=== PATIENT | male | born 1945 | race Caucasian/White ===

== ENCOUNTER 2019-12-07 09:51 | Outpatient (RCR) | payer MEDICARE, OTHER, SELFPAY ==
[2019-09-09 09:51] LABS: INR 2.5; Prothrombin Time 26.1 Seconds (11.1-14.7)
[2019-09-28 12:00] LABS: INR 2.1; Prothrombin Time 22.8 Seconds (11.1-14.7)
[2019-10-19 08:27] LABS: INR 1.4; Prothrombin Time 16.8 Seconds (11.1-14.7)
[2019-11-10 10:01] LABS: Prothrombin Time 22.5 Seconds (11.1-14.7)
[2019-12-07 10:45] LABS: INR 1.7; Prothrombin Time 19.5 Seconds (11.1-14.7)
== END 2019-12-08 23:59 | disposition home or self-care (01) ==
LOC: ANHLAB 09:51
PROVIDERS: PCP Family Medicine; Visit Provider Internal Medicine Cardiovascular Disease
DX: I48.91 Unspecified atrial fibrillation (principal)
CPT/HCPCS: 36415; 85610

== ENCOUNTER 2020-02-22 09:20 | Outpatient (RCR) | payer MEDICARE, OTHER, SELFPAY ==
[2019-12-20 09:35] LABS: INR 2.1; Prothrombin Time 23.1 Seconds (11.1-14.7)
[2020-01-14 09:44] LABS: INR 2.3; Prothrombin Time 24.6 Seconds (11.1-14.7)
[2020-02-22 10:30] LABS: Prothrombin Time 22.5 Seconds (11.1-14.7)
== END 2020-03-19 23:59 | disposition home or self-care (01) ==
LOC: ANHLAB 09:20
PROVIDERS: PCP Family Medicine; Visit Provider Internal Medicine Cardiovascular Disease
DX: I48.91 Unspecified atrial fibrillation (principal)
CPT/HCPCS: 36415; 85610

== ENCOUNTER 2020-06-08 08:53 | Outpatient (RCR) | payer MEDICARE, OTHER, SELFPAY ==
[2020-03-28 13:43] LABS: INR 2.3; Prothrombin Time 25.1 Seconds (11.1-14.7)
[2020-05-08 08:11] LABS: INR 1.4; Prothrombin Time 17.1 Seconds (11.1-14.7)
[2020-05-17 09:00] LABS: INR 2.8; Prothrombin Time 28.9 Seconds (11.1-14.7)
[2020-06-08 09:31] LABS: INR 2.2; Prothrombin Time 24.3 Seconds (11.1-14.7)
== END 2020-06-26 23:59 | disposition home or self-care (01) ==
LOC: ANHLAB 08:53
PROVIDERS: PCP Family Medicine; Visit Provider Internal Medicine Cardiovascular Disease
DX: I48.91 Unspecified atrial fibrillation (principal)
CPT/HCPCS: 36415; 85610

== ENCOUNTER 2020-08-08 09:14 | Outpatient (CLI) | payer MEDICARE, OTHER, SELFPAY ==
[2020-08-08 09:44] LABS: Basophils Percent Auto 0.9 % (0.2-1.2); Eosinophils Absolute Auto 0.1 K/mm3 (0-0.3); Hematocrit 40.5 % (42.0-52.0); Hemoglobin 13.6 g/dL (14.0-18.0); Immature Granulocyte Absolute 0.01 K/mm3 (0.00-0.031); Immature Granulocyte Percent A 0.2 % (0-0.5); Lymphocytes Absolute Auto 1.06 K/mm3 (0.9-3.2); Lymphocytes Percent Auto 24.7 % (18.3-44.2); Mean Corpuscular HGB Conc 33.6 g/dl (32-36); Mean Corpuscular Hemoglobin 33.6 pg (26-34); Mean Platelet Volume 9.2 fl (7.4-10.4); Monocytes Absolute Auto 0.4 K/mm3 (0.1-0.6); Monocytes Percent Auto 8.6 % (2.6-8.5); Neutrophils Absolute Auto 2.7 K/mm3 (1.3-6.7); Neutrophils Percent Auto 62.6 % (45.5-73.1); Platelet Count Result 157 k/mm3 (150-375); Red Blood Count 4.05 M/mm3 (4.6-6.20); White Blood Count 4.3 K/mm3 (4.5-10.0)
[2020-08-08 09:56] LABS: Alanine Aminotransferase 23 U/L (4-50); Alkaline Phosphatase 67 U/L (38-126); Anion Gap 6 mmol/L (8-16); Aspartate Amino Transferase 35 U/L (17-59); Bilirubin,Total 1.5 mg/dL (0.2-1.3); Blood Urea Nitrogen 28 mg/dL (9-20); Calcium 9.4 mg/dL (8.4-10.2); Carbon Dioxide 33 mmol/L (22-30); Chloride 104 mmol/L (98-107); Cholesterol 149 mg/dL (0-200); Estimated Glomerular Filt Rate > 60; Glucose 104 mg/dL (75-110); HDL Direct 51 mg/dL; Potassium 4.6 mmol/L (3.4-5.0); Sodium 143 mmol/L (137-145); Triglycerides 95 mg/dL (<150); Uric Acid 4.2 mg/dL (3.5-8.5)
[2020-08-08 09:59] LABS: Hemoglobin A1C 5.8 % (<5.7)
[2020-08-08 10:07] LABS: LDL Cholesterol Direct 73 mg/dL
[2020-08-08 10:24] LABS: Erythrocyte Sedimentation Rate 22 mm/hr (0-20)
[2020-08-11 22:13] LABS: PSA, Free 0.25 ng/mL; PSA, Total 0.9 ng/mL (<=4.0)
== END 2020-08-08 09:15 | disposition home or self-care (01) ==
PROVIDERS: PCP Family Medicine; Visit Provider Family Medicine
DX: I45.9 Conduction disorder, unspecified (principal); Z98.890 Other specified postprocedural states; M47.812 Spondylosis without myelopathy or radiculopathy, cervical region; Z13.1 Encounter for screening for diabetes mellitus; Z13.220 Encounter for screening for lipoid disorders; Z12.5 Encounter for screening for malignant neoplasm of prostate; R00.2 Palpitations; E79.0 Hyperuricemia without signs of inflammatory arthritis and tophaceous disease
CPT/HCPCS: 36415; 80053; 80061; 83036; 84153; 84154; 84443; 84550; 85025; 85610; 85652; G0103

== ENCOUNTER 2020-09-13 09:21 | Outpatient (RCR) | payer MEDICARE, OTHER, SELFPAY ==
[2020-07-14 09:19] LABS: INR 2.3; Prothrombin Time 25.1 Seconds (11.1-14.7)
[2020-08-08 09:59] LABS: INR 2.1; Prothrombin Time 23.5 Seconds (11.1-14.7)
[2020-09-13 10:51] LABS: INR 2.2; Prothrombin Time 24.9 Seconds (11.1-14.7)
== END 2020-10-12 23:59 | disposition home or self-care (01) ==
LOC: ANHLAB 09:21
PROVIDERS: PCP Family Medicine; Visit Provider Internal Medicine Cardiovascular Disease
DX: I48.91 Unspecified atrial fibrillation (principal)
CPT/HCPCS: 36415; 85610

== ENCOUNTER 2021-01-12 09:39 | Outpatient (RCR) | payer MEDICARE, OTHER, SELFPAY ==
[2020-10-16 10:00] LABS: INR 2.1; Prothrombin Time 24.1 Seconds (11.1-14.7)
[2020-11-14 10:09] LABS: INR 2.2; Prothrombin Time 24.9 Seconds (11.1-14.7)
[2020-12-11 10:02] LABS: INR 2.6
[2021-01-12 10:23] LABS: INR 2.3; Prothrombin Time 25.8 Seconds (11.1-14.7)
== END 2021-01-14 23:59 | disposition home or self-care (01) ==
LOC: ANHLAB 09:39
PROVIDERS: PCP Family Medicine; Visit Provider Internal Medicine Cardiovascular Disease
DX: I48.91 Unspecified atrial fibrillation (principal)
CPT/HCPCS: 36415; 85610

== ENCOUNTER 2021-04-03 09:10 | Outpatient (RCR) | payer MEDICARE, OTHER, SELFPAY ==
[2021-02-12 10:11] LABS: INR 2.2; Prothrombin Time 25.1 Seconds (11.1-14.7)
[2021-03-15 10:03] LABS: INR 1.7; Prothrombin Time 20.9 Seconds (11.1-14.7)
[2021-04-03 10:03] LABS: Prothrombin Time 23.5 Seconds (11.1-14.7)
== END 2021-05-13 23:59 | disposition home or self-care (01) ==
LOC: ANHLAB 09:10
PROVIDERS: PCP Family Medicine; Visit Provider Internal Medicine Cardiovascular Disease
DX: I48.91 Unspecified atrial fibrillation (principal)
CPT/HCPCS: 36415; 85610

== ENCOUNTER 2021-05-18 16:32 | Outpatient (CLI) | payer MEDICARE, OTHER, SELFPAY ==
[2021-05-18 17:27] LABS: Add Urine Microscopic? YES; Appearance Urine Cloudy (Clear); Bilirubin Urine Negative (Negative); Blood Urine 3+ (Negative); Color Urine Yellow (Yellow); Glucose Urine UA Negative (Negative); Ketones Urine Negative (Negative); Leukocyte Esterase Ur Negative LEU/UL (Negative); Mucus Urine Rare /lpf; Nitrate Urine Negative (Negative); Protein Urine 2+ mg/dL (Negative); RBC Urine >75 /hpf (0-2); Specific Grav Ur 1.024 (1.001-1.035); Urobilinogen Urine Negative mg/dL (<2.0); WBC Urine 0-3 /hpf
== END 2021-05-18 16:33 | disposition home or self-care (01) ==
LOC: ANHLAB 16:36
PROVIDERS: PCP Family Medicine; Visit Provider Family Medicine
DX: R31.9 Hematuria, unspecified (principal)
CPT/HCPCS: 81001

== ENCOUNTER 2021-05-20 16:55 | Observation (INO) | payer MEDICARE, OTHER, SELFPAY ==
[2021-05-20] VITALS (23 sets, daily range): BP systolic 104–149; BP diastolic 75–95; PULSE 63–72; RESP 18–20; TEMP 36.1–36.8; O2SAT 95–99
--- NOTE | ~2021-05-20 | XR_ITS ---
EXAMINATION: XR retrograde pyelo w/stent LT EXAM DATE: 05/21/2021 15:35 INDICATION: Left-sided obstructive nephropathy, left flank pain. TECHNIQUE: Fluoroscopy used during XR retrograde pyelo w/stent LT performed by Dr. Epifanio Rowland MD, urologist. The radiologist Ace Hernandez M.D. dictating this report of the image(s) available wa s not present for the procedure. Total fluoroscopic time of 16. The DAP for this procedure was 261 radcm2. A total of 76 images sent to PACS from the exam. Cine run(s) available for review. FINDINGS: Left ureter was cannulated, injected. There is sizable filling defect in the renal pelvis, the stone seen on x-ray. Mild left hydronephrosis. Probably some venous intravasation. Correlate wit h procedure note. IMPRESSION: Left renal pelvis filling defect, nephrolithiasis. Mild left hydronephrosis. Reviewed, dictated and finalized at location A. IMPRESSION: Left renal pelvis filling defect, nephrolithiasis. Mild left hydron ephrosis.
--- NOTE | ~2021-05-20 | XR_ITS ---
EXAMINATION: XR abdomen/kub 1V INDICATION: Left ureteral stone TECHNIQUE: Supine views of the abdomen were obtained on 2 radiographs. COMPARISON: CT from yesterday FINDINGS: A 9 mm stone projects at the expected location of the left ureteropelvic junction at the le shayla of the left L3 transverse process. There is a 6 mm nonobstructing stone of the left kidney. The b owel gas pattern is normal. There is moderate lumbar spondylosis. The visualized lung bases are clear . Cardiomegaly is noted. There is moderate osteoarthritis of the hips. A phlebolith is present in the right pelvis. IMPRESSION: 1. 9 mm stone projecting at the expected location of the left ureteropelvic junction. Reviewed, dictated and finalized at location B. IMPRESSION: 1. 9 mm stone projecting at the expected location of the left ureteropelvic heidy ction.
--- NOTE | ~2021-05-20 | CT_ITS ---
EXAMINATION: CT abdomen pelvis wo con DATE: 05/20/2021 17:31 INDICATION: Left flank pain TECHNIQUE: Computed tomography (CT) of the abdomen and pelvis was performed without intravenous contr ast. Automated exposure control and iterative reconstruction technique were employed. The dose-length product was 227.56 mGy-cm. COMPARISON: 10/11/2019 FINDINGS: No significant interval change in mild atelectasis/scarring at the bilateral lung bases. Heart size i s normal. Median sternotomy and mitral annular repair. Cardiac pacemaker leads terminating at the rig ht atrium and right ventricle. No pericardial or pleural effusion. Liver, gallbladder, spleen, pancre as, bilateral adrenal glands and right kidney are normal. 8 x 4 x 6 mm obstructing stone at the left ureteropelvic junction with mild left hydronephrosis and asymmetric moderate left perinephric strandi ng. There is an additional 8 mm stone in a middle calyx of the left kidney. Bladder is normal. Prosta tomegaly. Small bilateral fat-containing inguinal hernias. Bowels including the appendix are normal. No free intraperitoneal gas or fluid. No pathologically enlarged abdominal or pelvic lymphadenopathy. Moderate lower lumbar spondylosis with 7 mm anterolisthesis L4 on L5. IMPRESSION: 1. Mild left hydronephrosis resulting from an 8 mm obstructing stone at the left ureterovesicular heidy ction. Reviewed, dictated and finalized at location A. IMPRESSION: 1. Mild left hydronephrosis resulting from an 8 mm obstructing stone at the lef t ureterovesicular junction.
--- NOTE | 2021-05-20 17:22 | ED.ABDPAIN ---
HPI - Abdominal Pain General Chief Complaint: Urogenital-Male Stated Complaint: left flank pain Time Seen by Provider: 05/20/21 17:12 History of Present Illness HPI narrative: Intermittent left flank pain and dark urine for about 3 weeks. Feels similar to when he passed a kidney stone in the past. 2 years ago he was told that he had 2 stones remaining in the left kidney. No nausea, vomiting, fever, dysuria, abdominal pain, CP, SOB. Related Data Home Medications Medication Instructions Recorded Confirmed multivitamin [Multiple Vitamins] 1 tablet PO DAILY 10/10/19 05/20/21 warfarin 4 mg PO DAILY 10/10/19 05/20/21 aspirin [Aspir-81] 81 mg PO DAILY 05/20/21 05/20/21 Allergies Allergy/AdvReac Type Severity Reaction Status Date / Time No Known Allergies Allergy Verified 05/20/21 16:59 Review of Systems Review of Systems: All systems reviewed & are unremarkable except as noted in HPI and below PMFSH Past Medical History Medical History Anticoagulated by anticoagulation treatment Arthritis (Unknown) Bronchitis COPD (chronic obstructive pulmonary disease) Degenerative arthritis of cervical spine (~1998) GERD (gastroesophageal reflux disease) History of nephrolithiasis HLD (hyperlipidemia) HTN (hypertension) Mitral valve prolapse Surgical History Surgical History History of cataract extraction (~12/2014) History of cataract extraction (~03/2015) History of detached retina repair (~02/2006) History of detached retina repair (~01/1996) History of total left knee replacement (~12/2007) History of total right knee replacement (~12/2009) Hx of mitral valve replacement (~08/13/17) S/P mitral valve repair Total knee replacement status Family History Family History Mother Cancer Social History Social History Social History: Smoking status: Never smoker Second hand tobacco smoke exposure: No Alcohol intake: current Alcohol use details: Occasionally Substance use: never Substance use type: does not use Gender identity (if verbalized by the patient): Male Exam Const: General: healthy appearing, no acute distress and alert Nutritional Appearance: well nourished Orientation/consciousness: patient oriented x3 HENMT: Head: normal to inspection Resp: Effort & Inspection: normal respiratory effort Auscultation: clear to auscultation bilaterally Cardio: Rate: regular rate Rhythm: regular rhythm GI: GI Palp: Yes Soft to palpation and No Tenderness to palpation present (GI) : General: Yes no CVA tenderness Skin: General skin exam: normal color Neuro: General: patient oriented x3, moves all extremities and no focal motor deficits Speech: normal speech Extrem: General: normal to inspection and no edema Course Vital Signs Vital signs: Vital Signs Temperature 36.8 C 05/20/21 16:57 Pulse Rate 72 05/20/21 16:57 Respiratory Rate 20 05/20/21 16:57 Blood Pressure 149/87 H 05/20/21 16:57 Pulse Oximetry 97 05/20/21 16:57 Temperature 36.8 C 05/20/21 16:57 Pulse Rate 71 05/20/21 17:14 Respiratory Rate 18 05/20/21 17:14 Blood Pressure 143/94 H 05/20/21 17:14 Pulse Oximetry 97 05/20/21 17:14 MDM - Abdominal Pain MDM Narrative Medical decision making narrative: He has an 8 mm proximal left stone. Mild decrease in renal function. Dr. Cline spoke with the pateint and is recommending that he be admitted to the hospitalist overnight and have a stent placed tomorrow. Differential Diagnosis Differential diagnosis: Likely calculus of kidney Medical Records Attestation: I reviewed the patient's medical records. Lab Data Attestation: I reviewed the patient's lab results. Result diagrams: 05/20/21 17:24
--- NOTE | 2021-05-20 17:26 | PC.NURSE ---
Pt to CT scan, off floor
[2021-05-20 17:30] LABS: Basophils Absolute Auto 0.1 K/mm3 (0.0-0.1); Basophils Percent Auto 0.5 % (0.2-1.2); Eosinophils Absolute Auto 0.1 K/mm3 (0-0.3); Eosinophils Percent Auto 1.2 % (0-4.4); Hematocrit 43.9 % (42.0-52.0); Hemoglobin 14.5 g/dL (14.0-18.0); Immature Granulocyte Absolute 0.03 K/mm3 (0.00-0.031); Immature Granulocyte Percent A 0.3 % (0-0.5); Lymphocytes Absolute Auto 1.12 K/mm3 (0.9-3.2); Lymphocytes Percent Auto 12.1 % (18.3-44.2); Mean Corpuscular Hemoglobin 33.1 pg (26-34); Mean Corpuscular Volume 100.2 fl (80-100); Monocytes Percent Auto 10.2 % (2.6-8.5); Neutrophils Percent Auto 75.7 % (45.5-73.1); Platelet Count Result 180 k/mm3 (150-375); Red Blood Count 4.38 M/mm3 (4.6-6.20); Red Cell Distribution Width 12.7 % (11.5-14.5); White Blood Count 9.3 K/mm3 (4.5-10.0)
[2021-05-20 17:40] LABS: Alanine Aminotransferase 21 U/L (4-50); Albumin Level 4.3 g/dL (3.5-5.1); Alkaline Phosphatase 87 U/L (38-126); Anion Gap 8 mmol/L (8-16); Aspartate Amino Transferase 37 U/L (17-59); Bilirubin,Total 1.5 mg/dL (0.2-1.3); Blood Urea Nitrogen 33 mg/dL (9-20); Calcium 9.9 mg/dL (8.4-10.2); Carbon Dioxide 29 mmol/L (22-30); Chloride 104 mmol/L (98-107); Estimated CRCL calculation 41 ml/min; Estimated Glomerular Filt Rate 46; Glucose 140 mg/dL (65-110); Potassium 4.3 mmol/L (3.4-5.0); Sodium 141 mmol/L (137-145)
[2021-05-20 17:47] LABS: Add Urine Microscopic? YES; Appearance Urine Cloudy (Clear); Bacteria Urine Trace /hpf; Bilirubin Urine Negative (Negative); Blood Urine 3+ (Negative); Color Urine Yellow (Yellow); Glucose Urine UA 2+ mg/dL (Negative); Ketones Urine Negative (Negative); Leukocyte Esterase Ur Trace LEU/UL (Negative); Mucus Urine Moderate /lpf; Nitrate Urine Negative (Negative); Protein Urine 1+ mg/dL (Negative); RBC Urine >75 /hpf (0-2); Urobilinogen Urine Negative mg/dL (<2.0)
[2021-05-20 17:49] LABS: Specific Grav Ur 1.031 (1.001-1.035)
--- NOTE | 2021-05-20 18:24 | WPDURCON ---
Assessment and Plan Additional Plan 1. Admit to Hospital Medicine given cardiac history and other comorbidities including COPD. 2. To OR tomorrow for left ureteral stent placement, possible left ureteroscopy and laser lithotripsy. 3. Rocephin 1g IV. 4. Strain all urine. Bernice Campos MD [facility] Consult Note HPI Date Seen: 05/20/21 Primary Care Provider: Zoraida Mancia MD Consult Narrative Narrative: Leroy Osorio is a 75 year old male who presents to the [facility] ER with 1 week of left flank pain. The patient reports pain is colicky and intermittent in nature. He denies nausea or vomiting. He reports he is on Coumadin for a valve replacement. He has a history of spontaneously passing multiple stones. He denies fevers, chills, UTI symptoms. He has had intermittent hematuria. SCr 1.50 mg/dL, baseline appears to be about 1.0 mg/dL. Review of Systems Constitutional: Constitutional: Reports as per HPI, Denies fatigue and Denies fever(s) Eyes: Eyes: Reports as per HPI ENT: Reports as per HPI Cardiovascular: Cardiovascular: Reports as per HPI Respiratory: Respiratory: Reports as per HPI Gastrointestinal: Gastrointestinal: Reports as per HPI Genitourinary: Genitourinary: Reports hematuria and Reports flank pain Musculoskeletal: Musculoskeletal: Reports no additional musculoskeletal complaints Integumentary/Breasts: Skin/Breast: Reports system reviewed and no additional complaints, except as docu Neurologic: Reports system reviewed and no additional complaints, except as documented Psychiatric: Psychiatric: Reports no additional psychiatric complaints Endocrine: Endocrine: Reports no additional endocrine complaints [facility] Past Medical History Medical History Anticoagulated by anticoagulation treatment Arthritis (Unknown) Bronchitis COPD (chronic obstructive pulmonary disease) Degenerative arthritis of cervical spine (~1998) GERD (gastroesophageal reflux disease) History of nephrolithiasis HLD (hyperlipidemia) HTN (hypertension) Mitral valve prolapse Surgical History Surgical History History of cataract extraction (~12/2014) History of cataract extraction (~03/2015) History of detached retina repair (~02/2006) History of detached retina repair (~01/1996) History of total left knee replacement (~12/2007) History of total right knee replacement (~12/2009) Hx of mitral valve replacement (~08/13/17) S/P mitral valve repair Total knee replacement status Family History Family History Mother Cancer Social History Social History Social History: Smoking status: Never smoker Second hand tobacco smoke exposure: No Alcohol intake: current Alcohol use details: Occasionally Substance use: never Substance use type: does not use Gender identity (if verbalized by the patient): Male Meds Home Medications and Allergies Home Medications Medication Instructions Recorded Confirmed Type multivitamin [Multiple Vitamins] 1 tablet PO DAILY 10/10/19 02/23/21 History warfarin 6 mg PO DAILY 10/10/19 02/23/21 History aspirin [Aspir-81] 81 mg PO DAILY 05/20/21 History Allergies Allergy/AdvReac Type Severity Reaction Status Date / Time No Known Allergies Allergy Verified 05/20/21 16:59 Vital Signs Vital Signs - 24 hr 05/20/21 16:57 05/20/21 17:14 Temperature 98.2 F Pulse Rate 72 71 Respiratory Rate 20 18 Blood Pressure 149/87 H 143/94 H Pulse Oximetry 97 97 Exam Const: General: cooperative, healthy appearing, comfortable and no acute distress HENMT: Head: normal to inspection Ears: hearing grossly normal bilaterally Eyes: General: appearance normal, both eyes and all related structures Neck: Neck: normal visual
[2021-05-20] MEDS: TAMSULOSIN HCL 0.4 MG CAPSULE PO (18:51)
--- NOTE | 2021-05-20 19:34 | PC.NURSE ---
SBAR faxed to floor. Pt admitted to Room 326-1.
--- NOTE | 2021-05-20 20:11 | PC.NURSE ---
Report to SUPRIYA Anthony. Pt admitted to room 36-1.
--- NOTE | 2021-05-20 20:30 | ADMGEN ---
This patient, Leroy Osorio, was admitted to [facility] Surg Room 326-01. Patient/family oriented to hospital policies and general routines including ID bracelet, bed and alarms, visiting hours, pain management, procedures, bathroom and other care routines, personal items, smoking policy, room service/diet, and visiting hours. Information on how to activate the Rapid Response Team has been discussed. Patient/Family are encouraged to report perceived risks to care and to ask questions if they do not understand what they are told or what they should do.
--- NOTE | 2021-05-20 20:31 | PM.IMHP ---
H&P: HPI History of Present Illness Date/Time: 05/20/21 20:31 Chief Complaint: FLANK PAIN Narrative: THIS IS A 75-YEAR-OLD MALE WITH PAST MEDICAL HISTORY SIGNIFICANT FOR UROLITHIASIS PATIENT PRESENTED TO THE EMERGENCY ROOM DUE TO LEFT FLANK PAIN FOR THE LAST 2 DAYS OR SO HE DENIES ANY FEVERS RIGORS OR CHILLS NO NAUSEA NO VOMITING NO DIARRHEA NO CONSTIPATION. HE ALSO NOTED DARK COLOR OF THE URINE FOR THE LAST 2 DAYS OR SO WELL HE HAD BEEN IN HIS USUAL STATE OF HEALTH PRIOR TO THESE. DENIES ANY SHORTNESS OF BREATH COUGH SPUTUM PRODUCTION CHEST PAIN LIGHTHEADEDNESS SYNCOPE OR NEAR SYNCOPE NO CLAUDICATION. PRELIMINARY WORKUP WAS SIGNIFICANT FOR CT OF ABDOMEN AND PELVIS WITH 8 MM STONE AT THE LEFT URETEROVESICULAR JUNCTION. ALSO HYDRONEPHROSIS IN THE SAME SIDE. Review of Systems Review of Systems: Narrative: PATIENT PRESENTED TO EMERGENCY ROOM DUE TO LEFT FLANK PAIN Constitutional: Constitutional: Denies chills, Denies fever(s), Denies malaise and Denies weakness Eyes: Eyes: Denies change in vision ENT: Denies nasal congestion, Denies nasal discharge and Denies nasal obstruction Cardiovascular: Cardiovascular: Denies irregular heart rhythm, Denies claudication, Denies leg edema, Denies lightheadedness, Denies radiating jaw, neck or arm pain, Denies palpitations, Denies dyspnea, Denies dyspnea on exertion and Denies orthopnea Respiratory: Respiratory: Denies cough and Denies wheezing Gastrointestinal: Gastrointestinal: Denies diarrhea, Denies nausea and Denies vomiting Genitourinary: Genitourinary: Reports hematuria and Reports flank pain ( LEFT) Musculoskeletal: Musculoskeletal: Reports no additional musculoskeletal complaints Integumentary/Breasts: Skin/Breast: Reports system reviewed and no additional complaints, except as docu Neurologic: Reports system reviewed and no additional complaints, except as documented Psychiatric: Psychiatric: Reports no additional psychiatric complaints Endocrine: Endocrine: Reports no additional endocrine complaints Hematologic/Lymphatic: Hematologic/Lymphatic: Reports no additional hematologic/lymphatic complaints Allergic/Immunologic: Allergic/Immunologic: Reports no additional allergic/immunologic complaints [facility] Past Medical History Medical History Anticoagulated by anticoagulation treatment Arthritis (Unknown) Bronchitis COPD (chronic obstructive pulmonary disease) Degenerative arthritis of cervical spine (~1998) GERD (gastroesophageal reflux disease) History of nephrolithiasis HLD (hyperlipidemia) HTN (hypertension) Mitral valve prolapse Surgical History Surgical History History of cataract extraction (~12/2014) History of cataract extraction (~03/2015) History of detached retina repair (~02/2006) History of detached retina repair (~01/1996) History of total left knee replacement (~12/2007) History of total right knee replacement (~12/2009) Hx of mitral valve replacement (~08/13/17) S/P mitral valve repair Total knee replacement status Family History Family History (Updated 05/20/21 @ 21:25 by Ruthann Mccallum RN) Mother Cancer lung cancer Father Lung cancer Social History Social History Social History: Smoking status: Current some day smoker Tobacco type: cigars Second hand tobacco smoke exposure: No Alcohol intake: unknown Alcohol use details: Occasionally Substance use: never Substance use type: does not use Gender identity (if verbalized by the patient): Male Spiritual care concerns: No Meds Home Medications and Allergies Home Medications Medication Instructions Recorded Confirmed Type multivitamin [Multiple Vitamins] 1 tablet PO DAILY 10/10/19 05/20/21 History warfarin 6 mg PO DAILY 10/10/19 05/20/21 History aspirin [Aspir-81] 81
[2021-05-20] MEDS: SODIUM CHLORIDE 0.9% IV 1,000 ML 100 ML IV CONT (21:37)
[2021-05-20] MEDS: MORPHINE SULFATE (*CRX) 4 MG/ML INJ IV PUSH (23:19)
[2021-05-21] VITALS (7 sets, daily range): BP systolic 83–125; BP diastolic 53–77; PULSE 60–68; RESP 10–18; TEMP 36.6–36.7; O2SAT 94–98
--- NOTE | 2021-05-21 07:14 | WPDHPUPDATE1 ---
History and Physical Update Update Date/Time: 05/21/21 07:14 History and Physical has been reviewed, including an updated exam of the patient. There are NO changes in the patient's condition. Risks, benefits, and alternatives have been discussed and questions answered. Patient agrees to proceed with procedure.
[2021-05-21] MEDS: SODIUM CHLORIDE 0.9% IV 1,000 ML 100 ML IV CONT (07:53)
--- NOTE | 2021-05-21 08:06 | WPDANESEPPF ---
Anes - Initial Pre Proc Eval Procedure: Operation Date: 05/21/21 15:30 Proposed Procedures p Left Ureteral Stent placement, possible left ureteroscopy - Epifanio Rowland MD s possible laser lithotripsy - Epifanio Rowland MD <Stevenson Alfaro DO - Last Filed: 05/29/21 08:44> Date/Time: 05/21/21 08:06 <Stevenson Alfaro DO - Last Filed: 05/29/21 08:44> Surgeon: Gillian Lazo PA-C <Stevenson Alfaro DO - Last Filed: 05/29/21 08:44> Pre Op Diagnosis: Obstructing ureteral stone, irvin <Stevenson Alfaro DO - Last Filed: 05/29/21 08:44> Patient Data Age: 75 Gender: M Height: 1.8 m Weight: 83 kg <Stevenson Alfaro DO - Last Filed: 05/29/21 08:44> Last Vital Signs Temp 36.1 C L 05/20/21 20:16 Pulse 63 05/20/21 20:16 Resp 18 05/20/21 20:16 BP 106/84 05/20/21 20:16 Pulse Ox 97 05/20/21 22:02 <Stevenson Alfaro DO - Last Filed: 05/29/21 08:44> Allergies Allergy/AdvReac Type Severity Reaction Status Date / Time No Known Allergies Allergy Verified 05/21/21 14:26 <Stevenson Alfaro DO - Last Filed: 05/29/21 08:44> Home Medications Medication Instructions Recorded Confirmed Type multivitamin [Multiple Vitamins] 1 tablet PO DAILY 10/10/19 05/20/21 History warfarin 6 mg PO DAILY 10/10/19 05/20/21 History aspirin 81 mg PO DAILY 05/20/21 05/20/21 History hydrocodone-acetaminophen 1 tablet PO Q4H PRN #30 tablet 05/21/21 Rx oxybutynin chloride 5 mg PO TID PRN #60 tablet 05/21/21 Rx phenazopyridine [Pyridium] 200 mg PO TID PRN #30 tablet 05/21/21 Rx <Stevenson Alfaro DO - Last Filed: 05/29/21 08:44> Laboratory Tests 05/20/21 05/20/21 05/20/21 17:24 17:24 17:24 WBC 9.3 K/mm3 K/mm3 (4.5-10.0) RBC 4.38 M/mm3 L M/mm3 (4.6-6.20) Hgb 14.5 g/dL g/dL (14.0-18.0) Hct 43.9 % % (42.0-52.0) MCV 100.2 fl H fl (80-100) MCH 33.1 pg pg (26-34) MCHC 33.0 g/dl g/dl (32-36) RDW 12.7 % % (11.5-14.5) Plt Count 180 k/mm3 k/mm3 (150-375) MPV 9.0 fl fl (7.4-10.4) Immature Gran % (Auto) 0.3 % % (0-0.5) Neut % (Auto) 75.7 % H % (45.5-73.1) Lymph % (Auto) 12.1 % L % (18.3-44.2) [place] % (Auto) 10.2 % H % (2.6-8.5) Eos % (Auto) 1.2 % % (0-4.4) Baso % (Auto) 0.5 % % (0.2-1.2) Lymph # (Auto) 1.12 K/mm3 K/mm3 (0.9-3.2) [place] # (Auto) 1.0 K/mm3 H K/mm3 (0.1-0.6) Eos # (Auto) 0.1 K/mm3 K/mm3 (0-0.3) Baso # (Auto) 0.1 K/mm3 K/mm3 (0.0-0.1) Abs Immat Gran (auto) 0.03 K/mm3 K/mm3 (0.00-0.031) Absolute Neuts (auto) 7.0 K/mm3 H K/mm3 (1.3-6.7) Absolute Nucleated RBC 0.0 K/mm3 K/mm3 (0.0-0.012) Nucleated RBC % 0.0 % % (0.0-0.2) Sodium 141 mmol/L mmol/L (137-145) Potassium 4.3 mmol/L mmol/L (3.4-5.0) Chloride 104 mmol/L mmol/L (98-107) Carbon Dioxide 29 mmol/L mmol/L (22-30) Anion Gap 8 mmol/L mmol/L (8-16) BUN 33 mg/dL H mg/dL (9-20) Creatinine 1.50 mg/dL H mg/dL (0.7-1.3) Estim Creat Clear Calc 41 ml/min ml/min Estimated GFR 46 L (59 - ) Glucose 140 mg/dL H mg/dL (65-110) Calcium 9.9 mg/dL mg/dL (8.4-10.2) Total Bilirubin 1.5 mg/dL H mg/dL (0.2-1.3) AST 37 U/L U/L (17-59) ALT 21 U/L U/L (4-50) Alkaline Phosphatase 87 U/L U/L (38-126) Total Protein 8.0 g/dL g/dL (6.3-8.2) Albumin 4.3 g/dL g/dL (3.5-5.1) Urine Color Yellow (Yellow) Urine Appearance Cloudy H (Clear) Urine pH 5.0 (5.0-9.0) Ur Specific [place] 1.031 (1.001-1.035) Urine Protein 1+ mg/dL H mg/dL (Negative) Urine Glucose (UA) 2+ mg
--- NOTE | 2021-05-21 10:18 | PC.NURSE ---
patient to xray 0800 and returned to floor at 0815
[2021-05-21 11:04] LABS: Anion Gap 5 mmol/L (8-16); Blood Urea Nitrogen 33 mg/dL (9-20); Calcium 8.8 mg/dL (8.4-10.2); Carbon Dioxide 29 mmol/L (22-30); Chloride 105 mmol/L (98-107); Estimated CRCL calculation 44 ml/min; Estimated Glomerular Filt Rate 50; Glucose 97 mg/dL (65-110); Potassium 4.2 mmol/L (3.4-5.0); Sodium 139 mmol/L (137-145)
[2021-05-21 12:10] LABS: Folic Acid 17.8 ng/mL (2.76->20)
--- NOTE | 2021-05-21 13:58 | PC.NURSE ---
to OR per stretcher. with patient to OR.
--- NOTE | 2021-05-21 14:56 | WPDUROPN2 ---
Progress Note: A&P Assessment and Plan (1) Obstruction of left ureteropelvic junction due to stone: Code(s): N20.1 - Calculus of ureter Status: Acute Assessment and Plan: will plan on left ureteral stent today. We discussed outpatient definitive stone management in the form of lithotripsy. The stone is visible on KUB. We will arrange once we confirmed he can be off Coumadin. If form was read the stent he may discharged home today. he should stay on his blood thinners for now. Subjective Subjective Date/Time Seen: 05/21/21 14:56 no complaints today. Will plan for left ureteral stent. Will do outpatient lithotripsy once we can confirm he can be off Coumadin Exam Const: General: cooperative, healthy appearing, alert and awake HENMT: Head: normal to inspection Eyes: General: appearance normal, both eyes and all related structures Neck: Neck: normal visual inspection Resp: Effort & Inspection: normal respiratory effort and able to speak in complete sentences Back/Spine/Pelvis: Back: CVA tenderness Skin: General skin exam: normal color Neuro: General: patient oriented x3 Objective Data Vital Signs Vital Signs: Vital Signs - 24 hr 05/20/21 16:57 05/20/21 17:14 05/20/21 17:16 Temperature 98.2 F Pulse Rate 72 71 71 Respiratory Rate 20 18 Blood Pressure 149/87 H 143/94 H 143/94 H Pulse Oximetry 97 97 97 05/20/21 17:33 05/20/21 17:45 05/20/21 18:00 Temperature Pulse Rate 68 69 66 Respiratory Rate Blood Pressure 134/86 126/88 123/75 Pulse Oximetry 97 97 05/20/21 18:15 05/20/21 18:30 05/20/21 18:42 Temperature Pulse Rate 66 65 Respiratory Rate Blood Pressure 132/95 H 129/80 Pulse Oximetry 98 97 97 05/20/21 18:45 05/20/21 18:46 05/20/21 18:47 Temperature Pulse Rate 63 Respiratory Rate Blood Pressure 106/84 106/84 Pulse Oximetry 97 98 99 05/20/21 19:00 05/20/21 19:01 05/20/21 19:15 Temperature Pulse Rate Respiratory Rate Blood Pressure 132/94 H Pulse Oximetry 99 95 98 05/20/21 19:16 05/20/21 19:17 05/20/21 19:30 Temperature Pulse Rate Respiratory Rate Blood Pressure 104/91 H 128/81 Pulse Oximetry 97 98 99 05/20/21 19:31 05/20/21 19:45 05/20/21 19:46 Temperature Pulse Rate Respiratory Rate Blood Pressure 124/76 Pulse Oximetry 98 97 97 05/20/21 20:16 05/20/21 22:02 05/21/21 07:15 Temperature 97.0 F L 98.1 F Pulse Rate 63 61 Respiratory Rate 18 18 Blood Pressure 106/84 110/69 Pulse Oximetry 97 97 96 05/21/21 14:28 Temperature 98.1 F Pulse Rate 68 Respiratory Rate 18 Blood Pressure 113/61 Pulse Oximetry 94 Intake/Output Intake/Output: Intake & Output 05/18/21 05/19/21 05/20/21 05/21/21 23:59 23:59 23:59 23:59 Intake Total 1000 Balance 1000 Meds/Results Medications: Active Medications Generic Name Dose Route Start Last Admin Trade Name Freq PRN Reason Stop Dose Admin Fentanyl Citrate 25 mcg 05/21/21 08:07 Fentanyl Citrate Inj (*Crx) 100 Mcg/2 Ml Vial IV PUSH Q2M PRN Pain Sodium Chloride 1,000 mls @ 100 mls/hr 05/20/21 18:45 05/21/21 07:53 Normal Saline Iv IV CONT 100 mls/hr .Q10H ANA Administration Lactated Ringer's 1,000 mls @ 30 mls/hr 05/21/21 07:15 Lr - Lactated Ringers Iv IV CONT .Q24H ANA Lactated Ringer's 1,000 mls @ 30 mls/hr 05/21/21 08:10 Lr - Lactated Ringers Iv IV CONT .Q24H ANA Morphine Sulfate 4 mg 05/20/21 18:44 05/20/21 23:19 Morphine Sulfate (*Crx) 4 Mg/Ml Inj IV PUSH 4 mg Q2H PRN Administration Pain Rated 7-10 Ondansetron HCl 4 mg 05/20/21 18:44 Ondansetron Inj 4 Mg/2 Ml Vial IV PUSH Q4H PRN Nausea Ondansetron HCl 4 mg 05/21/21 08:07 Ondansetron Inj 4 Mg/2 Ml Vial IV PUSH ONCE PRN Nausea Radiology Results: ITS Impressions Abdomen/Pelvis CT 05/20/21 17:54 IMPRESSION: 1. Mild left hydronephrosis resulting from an 8
[2021-05-21] MEDS: ceFAZolin 2 GM/D5W 50 ML 2 GM/50 ML BAG IVPB (15:12)
--- NOTE | 2021-05-21 15:29 | PM.DS ---
DS: Admitting Diagnosis Admitting Diagnosis Admitting Diagnosis: Mild left hydronephrosis resulting from an 8 mm obstructing stone at the left ureterovesicular junction. DS: Discharge Diagnosis Discharge Diagnosis (1) Obstruction of left ureteropelvic junction due to stone: Code(s): N20.1 - Calculus of ureter Status: Acute (2) Hematuria: Code(s): R31.9 - Hematuria, unspecified Status: Acute (3) S/P mitral valve repair: Code(s): Z98.890 - Other specified postprocedural states Status: Acute (4) Afib: Code(s): I48.91 - Unspecified atrial fibrillation Status: Acute DS: Summary Hospital Course Hospital Course: Patient is a 75 year old male who has a history of mitral valve repair with arrhythmia shortly after surgery ( now on warfarin for) and kidney stones who presented emergency room for left flank pain and dark urine. vitals in the ER were temperature 36.8? 6, pulse 72 respiratory 20, blood pressure 149/87, pulse ox 97 on room air. CBC within normal limits. BMP showed slight ITALO with a creatinine 1.5. UA with blood but not overly suspicious for UTI. patient underwent an abdominal pelvis CT which showed mild left hydronephrosis from an 8 mm obstructing stone in the left ureter vesicular junction. patient underwent a cystoscopy 05/21/2021 with a left ureteral stent placement. I spoke with Urology who is going to obliterate the stone outpatient once he is off warfarin. The patient did well during the procedure and suspected his knee will improve his with stent placement. He is going to follow-up with urology. No antibiotics needed at discharge. Overall, the patient was feeling well and ready to go. He was educated about the worrisome signs and symptoms come back to emergency room for and was discharged in stable condition after his procedure. Time Spent with Patient Time attestation: Total time spent providing and/or coordinating discharge services: 32 min Exam Narrative: Exam Narrative: General: Well developed well nourished patient in NAD HEENT: normocephalic Neck: supple Neuro: Alert and oriented x4 CV:RRR Resp:CTA Abd: Soft, non distended. No pain to palpation. Positive bowel sounds. no flank pain Extremities: No swelling, erythema, or pain to palpation. DS: Data Data Completed and Pending Labs on day of discharge: Labs from last 24 hours 05/21/21 05/20/21 05/20/21 10:39 17:24 17:24 WBC 9.3 RBC 4.38 L Hgb 14.5 Hct 43.9 MCV 100.2 H MCH 33.1 MCHC 33.0 RDW 12.7 Plt Count 180 MPV 9.0 Immature Gran % (Auto) 0.3 Neut % (Auto) 75.7 H Lymph % (Auto) 12.1 L [place] % (Auto) 10.2 H Eos % (Auto) 1.2 Baso % (Auto) 0.5 Lymph # (Auto) 1.12 [place] # (Auto) 1.0 H Eos # (Auto) 0.1 Baso # (Auto) 0.1 Abs Immat Gran (auto) 0.03 Absolute Neuts (auto) 7.0 H Absolute Nucleated RBC 0.0 Nucleated RBC % 0.0 Sodium 139 141 Potassium 4.2 4.3 Chloride 105 104 Carbon Dioxide 29 29 Anion Gap 5 L 8 BUN 33 H 33 H Creatinine 1.40 H 1.50 H Estim Creat Clear Calc 44 41 Estimated GFR 50 L 46 L Glucose 97 140 H Calcium 8.8 9.9 Total Bilirubin 1.5 H AST 37 ALT 21 Alkaline Phosphatase 87 Total Protein 8.0 Albumin 4.3 Vitamin B12 373.0 Folate 17.8 Urine Color Urine Appearance Urine pH Ur Specific [place] Urine Protein Urine Glucose (UA) Urine Ketones Ur Blood (Man) Urine Nitrate Urine Bilirubin Urine Urobilinogen Leukocyte Esterase Rfl Urine RBC Urine WBC Urine Bacteria Hyaline Casts Urine Mucus 05/20/21 17:24 WBC RBC Hgb Hct MCV MCH MCHC RDW Plt Count MPV Immature Gran % (Auto) Neut % (Auto) Lymph % (Auto) [place] % (Auto) Eos % (Auto) Baso % (Auto) Lymph # (Auto) [place] # (Auto) Eos # (Auto) Baso # (Auto) Abs Immat Gran (auto) Absolute Neuts
[2021-05-21] MEDS: LIDOCAINE HCL 2% GEL UROJET 10 ML PKG MUCOUS MEM (15:32)
--- NOTE | 2021-05-21 15:35 | W.PM.PROC2 ---
Procedure Note - Detailed Date of Procedure 05/21/21 Pre-op Diagnosis Left ureteral stone with hydronephrosis Post-op Diagnosis same Procedure Performed cystoscopy, left retrograde pyelogram, left ureteral stent placement Surgeon Epifanio Rowland MD Anesthesia MAC Indications he is an 8 mm left UPJ stone and an nonobstructing left renal stone as well Findings Left UPJ stone, left renal stone. Stent placed. Will plan on definitive stone management once he is off blood thinners. Description of Procedure he is correctly identified. Informed consent obtained. He is brought to the operating room. He was given mac anesthesia. He was placed in dorsal lithotomy position. He was prepped and draped in sterile fashion. Time-out performed. Cystoscopy revealed lateral lobe hyperplasia was prostate. His bladder was out significant abnormalities. There is mild trabeculation. The stone was seen on caregiver services home radiograph. I could visualize both his UPJ and his renal stone. I did a gentle retrograde pyelogram to outline renal anatomy. There was no filling defects of the stones. Placed a guidewire to the kidney. I then placed a 4.8 variable length stent. Proximal coil in the renal pelvis. Distal coil in the bladder. His bladder was drained. Uro jet was applied. He was awakened and transferred to PACU in stable condition. Implants Variable length stent Estimated Blood Loss 1 Drains No Packing No Pathology none sent Complications No immediate complications Condition stable Disposition PACU
[2021-05-21] MEDS: LACTATED RINGERS 1,000 ML 30 ML IV CONT (15:38)
--- NOTE | 2021-05-21 16:38 | PC.NURSE ---
patient returned to room from OR.
[2021-05-21 17:04] LABS: INR 1.8; Prothrombin Time 20.4 Seconds (11.1-14.7)
[2021-05-21] MEDS: PHENAZOPYRIDINE HCL 100 MG TABLET 200 MG PO (18:24)
[2021-05-21] MEDS: WARFARIN (*PBKC) 3 MG TABLET 6 MG PO (18:25)
== END 2021-05-21 19:01 | disposition home or self-care (01) ==
LOC: ANHED 18:56 → ANH3MEDSUR 19:11
PROVIDERS: Urology; Admitting Provider Internal Medicine; Emergency Provider Emergency Medicine; PCP Family Medicine; Visit Provider Physician Assistant
PROC: (CPT 52352; principal; 2021-05-21 15:30)
DX: N13.2 Hydronephrosis with renal and ureteral calculous obstruction (principal); I48.91 Unspecified atrial fibrillation; R31.9 Hematuria, unspecified; J44.9 Chronic obstructive pulmonary disease, unspecified; I10 Essential (primary) hypertension; E78.5 Hyperlipidemia, unspecified; I34.1 Nonrheumatic mitral (valve) prolapse; K21.9 Gastro-esophageal reflux disease without esophagitis; M47.892 Other spondylosis, cervical region; Z95.4 Presence of other heart-valve replacement; Z79.01 Long term (current) use of anticoagulants; Z79.82 Long term (current) use of aspirin
CPT/HCPCS: 52332; 36415; 74018; 74176; 74420; 80048; 80053; 81001; 82607; 82746; 85025; 85610; 96361; 96374; 99285; A9270; C1769; C1887; C2617; G0378; J0690; J2270; J2704; J3010; J7030; J7120; Q9966

== ENCOUNTER 2021-06-20 10:09 | Outpatient (CLI) | payer MEDICARE, OTHER, SELFPAY ==
--- NOTE | 2021-06-20 10:24 | ECG_ITS ---
Measurements Intervals [place] Rate: 76 P: 11 CT: 203 QRS: -54 QRSD: 121 T: 56 QT: 393 QTc: 444 Interpretive Statements SINUS RHYTHM LEFT ANTERIOR FASCICULAR BLOCK VOLTAGE CRITERIA FOR LVH BASELINE ARTIFACT- I, II, AVR ABNORMAL ECG Electronically Signed On 06-20-2021 10:44:51 CDT by Raúl Coronel D.O.
[2021-06-20 10:57] LABS: INR 2.3
[2021-06-20 10:58] LABS: Partial Thromboplastin Time 39.4 SECONDS (22.3-36.8)
== END 2021-06-20 10:10 | disposition home or self-care (01) ==
PROVIDERS: PCP Family Medicine; Visit Provider Urology
DX: Z01.818 Encounter for other preprocedural examination (principal); N20.0 Calculus of kidney; Z98.890 Other specified postprocedural states; I44.4 Left anterior fascicular block; R94.31 Abnormal electrocardiogram [ECG] [EKG]
CPT/HCPCS: 36415; 85610; 85730; 87086; 93005

== ENCOUNTER 2021-06-29 03:00 | Day surgery (SDC) | payer MEDICARE, OTHER, SELFPAY ==
[2021-06-15 14:51] VITALS: BMI 25.4
--- NOTE | 2021-06-24 10:39 | PM.HPGS ---
History of Present Illness History of Present Illness Consent: Risks, benefits, and alternatives have been discussed and questions answered. Patient agrees to proceed with procedure. Chief complaint: Renal and Ureteral Kidney Stones Narrative: Leroy Osorio is a 76 year old male with a history of having spontaneously passed multiple renal and ureteral calculi in the past. He recently presented to the ER with acute left renal colic and imaging that demonstrated an obstructing 9 mm left proximal ureteral stone. A stent was placed and he now presents for definitive intervention with ESWL. He is aware the risk including, but not limited to, failure to fracture the stone, adverse cardiopulmonary events, renal injury with hematoma. Review of Systems Cardiovascular: Cardiovascular: Denies chest pain, Denies lightheadedness, Denies palpitations and Denies dyspnea Respiratory: Respiratory: Denies dyspnea Gastrointestinal: Gastrointestinal: Denies diarrhea, Denies nausea and Denies vomiting Genitourinary: Genitourinary: Denies hematuria and Denies dysuria Endocrine: Endocrine: Denies palpitations PMFSH Past Medical History Medical History Anticoagulated by anticoagulation treatment Arthritis (Unknown) Atrial fibrillation once after MVR Bronchitis COPD (chronic obstructive pulmonary disease) Degenerative arthritis of cervical spine (~1998) GERD (gastroesophageal reflux disease) History of nephrolithiasis HLD (hyperlipidemia) HTN (hypertension) Mitral valve prolapse Pacemaker Surgical History Surgical History History of cataract extraction (~12/2014) History of cataract extraction (~03/2015) History of detached retina repair (~02/2006) History of detached retina repair (~01/1996) History of total left knee replacement (~12/2007) History of total right knee replacement (~12/2009) Hx of mitral valve replacement (~08/13/17) S/P mitral valve repair Total knee replacement status Family History Family History Mother Cancer lung cancer Father Lung cancer Social History Social History Social History: Smoking status: Current some day smoker Tobacco type: cigars Second hand tobacco smoke exposure: No Additional smoking assessment comments: SMOKES CIGARS OCC. Alcohol intake: current Drinks per week: 4 Alcohol use details: Occasionally Substance use: never Substance use type: does not use Gender identity (if verbalized by the patient): Male Spiritual care concerns: No Meds Home Medications and Allergies Home Medications Medication Instructions Recorded Confirmed Type multivitamin [Multiple Vitamins] 1 tablet PO DAILY 10/10/19 06/15/21 History warfarin 6 mg PO DAILY 10/10/19 06/15/21 History aspirin 81 mg PO DAILY 05/20/21 06/15/21 History hydrocodone-acetaminophen 1 tablet PO Q4H PRN #30 tablet 05/21/21 06/15/21 Rx oxybutynin chloride 5 mg PO TID PRN #60 tablet 05/21/21 06/15/21 Rx phenazopyridine [Pyridium] 200 mg PO TID PRN #30 tablet 05/21/21 06/15/21 Rx Allergies Allergy/AdvReac Type Severity Reaction Status Date / Time No Known Allergies Allergy Verified 06/15/21 14:19 Exam Const: General: no acute distress Resp: Effort & Inspection: normal respiratory effort GI: Inspection: non-distended GI Palp: No abdominal tenderness and No Guarding due to palpation present (GI) Auscultation: normal bowel sounds Assessment and Plan Assessment and plan (1) Obstruction of left ureteropelvic junction due to stone: Code(s): N20.1 - Calculus of ureter Status: Acute Assessment and Plan: Left ESWL
--- NOTE | 2021-06-28 12:16 | WPDANESEPPF ---
Anes - Initial Pre Proc Eval Procedure: Operation Date: 06/29/21 10:30 Proposed Procedures p Left Renal and Ureteral Extracorporeal Shock Wave Lithotripsy - Daljit Gallardo MD Date/Time: 06/28/21 12:16 Surgeon: Daljit Gallardo MD Pre Op Diagnosis: Renal and Ureteral Kidney Stones Patient Data Age: 76 Gender: M Height: 1.8 m Weight: 82.55 kg Allergies Allergy/AdvReac Type Severity Reaction Status Date / Time No Known Allergies Allergy Verified 06/15/21 14:19 Home Medications Medication Instructions Recorded Confirmed Type multivitamin [Multiple Vitamins] 1 tablet PO DAILY 10/10/19 06/15/21 History warfarin 6 mg PO DAILY 10/10/19 06/15/21 History aspirin 81 mg PO DAILY 05/20/21 06/15/21 History hydrocodone-acetaminophen 1 tablet PO Q4H PRN #30 tablet 05/21/21 06/15/21 Rx oxybutynin chloride 5 mg PO TID PRN #60 tablet 05/21/21 06/15/21 Rx phenazopyridine [Pyridium] 200 mg PO TID PRN #30 tablet 05/21/21 06/15/21 Rx Patient hx anesthesia problems: none Family hx anesthesia problems: none PMFSH Past Medical History Medical History Anticoagulated by anticoagulation treatment Arthritis (Unknown) Atrial fibrillation once after MVR Degenerative arthritis of cervical spine (~1998) History of nephrolithiasis HLD (hyperlipidemia) HTN (hypertension) Mitral valve prolapse Pacemaker Surgical History Surgical History History of cataract extraction (~12/2014) History of cataract extraction (~03/2015) History of detached retina repair (~02/2006) History of detached retina repair (~01/1996) History of total left knee replacement (~12/2007) History of total right knee replacement (~12/2009) Hx of mitral valve replacement (~08/13/17) S/P mitral valve repair Total knee replacement status Family History Family History Mother Cancer lung cancer Father Lung cancer Social History Social History Social History: Smoking status: Current some day smoker Tobacco type: cigars Second hand tobacco smoke exposure: No Additional smoking assessment comments: SMOKES CIGARS OCC. Alcohol intake: unknown Drinks per week: 4 Alcohol use details: Occasionally Substance use: never Substance use type: does not use Living arrangements: with family Gender identity (if verbalized by the patient): Male Spiritual care concerns: No Anes - Eval Final PreProcedure Day of Procedure 06/28/21 12:16 Patient weight: overweight Heart: regular rate and rhythm Lungs: clear to auscultation and normal air movement Airway: Mallampati scale class II Neurological: alert and oriented Last oral intake: >/= 8 hours ASA classification: III Emergent: no Anesthetic plan: proceed Anesthesia type and monitoring: general LMA and standard monitoring Informed Consent: The patient's anesthetic plan and its attendant risks and benefits were discussed with the patient/family/POA. Questions were solicited and answers provided to the satisfaction of the patient/family/POA.
[2021-06-29] VITALS (10 sets, daily range): BP systolic 120–154; BP diastolic 78–91; PULSE 59–64; RESP 12–18; TEMP 36.2–36.4; O2SAT 97–100
--- NOTE | ~2021-06-29 | XR_ITS ---
EXAMINATION: XR abdomen/kub 1V DATE: 06/29/2021 09:03 INDICATION: Left kidney stones. TECHNIQUE: A supine view of the abdomen on 2 radiographs was obtained. COMPARISON: CT abdomen and pelvis 05/20/2021 FINDINGS: There are no dilated loops of bowel. There is a 2 mm stone in right kidney. There is a left internal ureteral stent in expected position. There are 8 mm and 11 mm stones in left kidney. There are phleboliths in the pelvis. IMPRESSION: 1. Bilateral kidney stones. 2. Left internal ureteral stent in expected position. Reviewed, dictated and finalized at location A.
--- NOTE | 2021-06-29 06:33 | WPDHPUPDATE1 ---
History and Physical Update Update Date/Time: 06/29/21 06:33 History and Physical has been reviewed, including an updated exam of the patient. There are NO changes in the patient's condition. Risks, benefits, and alternatives have been discussed and questions answered. Patient agrees to proceed with procedure.
[2021-06-29] MEDS: LACTATED RINGERS 1,000 ML 30 ML IV CONT (09:30)
[2021-06-29 09:45] LABS: Prothrombin Time 13.2 Seconds (11.1-14.7)
[2021-06-29 09:46] LABS: Partial Thromboplastin Time 31.7 SECONDS (22.3-36.8)
[2021-06-29] MEDS: ceFAZolin 2 GM/D5W 50 ML 2 GM/50 ML BAG IVPB (10:29)
--- NOTE | 2021-06-29 10:56 | W.PM.PROC2 ---
Procedure Note - Detailed Date of Procedure 06/29/21 Pre-op Diagnosis Left Renal Stones Post-op Diagnosis same Procedure Performed Left ESWL Surgeon Daljit Gallardo MD Anesthesia general Description of Procedure The patient was brought to the operative suite where he was placed in the supine position on the Dornier lithotripsy table. The focal point of the lithotripter was placed first at a 11mm lower pole, less densly calcified renal calculus. A total of 800 shocks were delivered at a power setting of 4 after which there appeared to be great fragmentation. The remaining 1700 shocks were directed at a more densely calcified 8mm left mid pole stone. . There appeared to be good fragmentation of that stone, as well. The patient tolerated the procedure well and was taken to the recovery room in good condition. Drains No Packing No Pathology none sent Complications No immediate complications Condition stable Disposition PACU
== END 2021-06-29 13:00 | disposition home or self-care (01) ==
PROVIDERS: PCP Family Medicine; Referring Provider Urology; Visit Provider Urology
PROC: (CPT 50590; principal; 2021-06-29 10:30)
DX: N20.2 Calculus of kidney with calculus of ureter (principal); Z79.82 Long term (current) use of aspirin; M19.90 Unspecified osteoarthritis, unspecified site; I10 Essential (primary) hypertension; E78.5 Hyperlipidemia, unspecified; Z95.0 Presence of cardiac pacemaker; I34.1 Nonrheumatic mitral (valve) prolapse; F17.290 Nicotine dependence, other tobacco product, uncomplicated; J44.9 Chronic obstructive pulmonary disease, unspecified; K21.9 Gastro-esophageal reflux disease without esophagitis
CPT/HCPCS: 50590; 36415; 74018; 85610; 85730; J0690; J1100; J2370; J2405; J2704; J3010; J7120

== ENCOUNTER 2021-07-13 09:21 | Outpatient (CLI) | payer MEDICARE, OTHER, SELFPAY ==
--- NOTE | ~2021-07-13 | XR_ITS ---
EXAMINATION: XR abdomen/kub 1V EXAM DATE: 07/13/2021 09:58 INDICATION: Left Renal Stone, Left Stent, Follow Up . TECHNIQUE: Frontal projection(s) of the abdomen for interpretation. Comparison is made to prior exami nation from 06/29/2021. FINDINGS: There is a left-sided double-J ureteral stent overlying expected position. Several left ca lyceal stones identified up to about 8 mm in size. Nonobstructive bowel gas pattern. Mild to moderate lumbar dextroscoliosis. There are bony degenerative changes. IMPRESSION: Left nephrolithiasis. Stent in position. Reviewed, dictated and finalized at location A.
== END 2021-07-13 09:22 | disposition home or self-care (01) ==
PROVIDERS: PCP Family Medicine; Visit Provider Urology
DX: N20.0 Calculus of kidney (principal)
CPT/HCPCS: 74018

== ENCOUNTER 2021-07-24 09:40 | Outpatient (CLI) | payer MEDICARE, OTHER, SELFPAY ==
--- NOTE | ~2021-07-24 | XR_ITS ---
XR abdomen/kub 1V 07/24/2021 10:07 Indication: Left renal stone. Procedure: KUB Comparison: 07/13/2021 Findings: There are left renal stones. There is a left internal ureteral stent. No definite ureteral stones are seen. There are pelvic phleboliths. Bowel gas pattern is nonobstructive. Impression: 1: Left nephrolithiasis. Left internal ureteral stent in expected position. Reviewed, dictated and finalized at location A. Impression: 1: Left nephrolithiasis. Left internal ureteral stent in expected position.
== END 2021-07-24 09:41 | disposition home or self-care (01) ==
LOC: ANHIMG 09:48
PROVIDERS: PCP Family Medicine; Visit Provider Urology
DX: N20.0 Calculus of kidney (principal)
CPT/HCPCS: 74018

== ENCOUNTER 2021-08-06 09:24 | Outpatient (RCR) | payer MEDICARE, OTHER, SELFPAY ==
[2021-05-18 17:26] LABS: INR 1.9; Prothrombin Time 21.6 Seconds (11.1-14.7)
[2021-06-18 09:21] LABS: INR 2.1; Prothrombin Time 23.3 Seconds (11.1-14.7)
[2021-07-13 10:17] LABS: INR 1.6; Prothrombin Time 19.1 Seconds (11.1-14.7)
[2021-07-24 11:13] LABS: INR 1.4
[2021-08-06 10:10] LABS: INR 2.6; Prothrombin Time 27.5 Seconds (11.1-14.7)
== END 2021-08-16 23:59 | disposition home or self-care (01) ==
LOC: ANHLAB 09:24
PROVIDERS: PCP Family Medicine; Visit Provider Internal Medicine Cardiovascular Disease
DX: Z51.81 Encounter for therapeutic drug level monitoring (principal); I48.91 Unspecified atrial fibrillation; Z79.01 Long term (current) use of anticoagulants
CPT/HCPCS: 36415; 81001; 85610

== ENCOUNTER 2021-08-13 09:23 | Outpatient (CLI) | payer MEDICARE, OTHER, SELFPAY ==
--- NOTE | ~2021-08-13 | XR_ITS ---
EXAMINATION: XR abdomen/kub 1V DATE: 08/13/2021 09:44 INDICATION: Left renal stone. TECHNIQUE: A supine view of the abdomen on 2 radiographs was obtained. COMPARISON: Abdomen radiographs 07/24/2021, CT abdomen and pelvis 05/20/2021 FINDINGS: There are no dilated loops of bowel. There is a left internal ureteral stent in expected po sition. There are 2 clusters of stones in left kidney with the largest stone measuring approximately 8 mm. IMPRESSION: 1. Left kidney stones. 2. Left internal ureteral stent in expected position. Reviewed, dictated and finalized at location A.
== END 2021-08-13 09:24 | disposition home or self-care (01) ==
LOC: ANHIMG 09:31
PROVIDERS: PCP Family Medicine; Visit Provider Urology
DX: N20.0 Calculus of kidney (principal)
CPT/HCPCS: 74018

== ENCOUNTER 2021-08-21 09:07 | Outpatient (CLI) | payer MEDICARE, OTHER, SELFPAY ==
[2021-08-21 09:45] LABS: Basophils Absolute Auto 0.1 K/mm3 (0.0-0.1); Basophils Percent Auto 1.4 % (0.2-1.2); Eosinophils Absolute Auto 0.1 K/mm3 (0-0.3); Eosinophils Percent Auto 1.8 % (0-4.4); Hematocrit 41.1 % (42.0-52.0); Hemoglobin 13.7 g/dL (14.0-18.0); Immature Granulocyte Absolute 0.01 K/mm3 (0.00-0.031); Immature Granulocyte Percent A 0.2 % (0-0.5); Lymphocytes Absolute Auto 0.99 K/mm3 (0.9-3.2); Lymphocytes Percent Auto 22.4 % (18.3-44.2); Mean Corpuscular HGB Conc 33.3 g/dl (32-36); Mean Corpuscular Hemoglobin 33.5 pg (26-34); Mean Corpuscular Volume 100.5 fl (80-100); Mean Platelet Volume 8.7 fl (7.4-10.4); Monocytes Absolute Auto 0.4 K/mm3 (0.1-0.6); Monocytes Percent Auto 8.8 % (2.6-8.5); Neutrophils Absolute Auto 2.9 K/mm3 (1.3-6.7); Neutrophils Percent Auto 65.4 % (45.5-73.1); Platelet Count Result 170 k/mm3 (150-375); Red Blood Count 4.09 M/mm3 (4.6-6.20); Red Cell Distribution Width 12.5 % (11.5-14.5); White Blood Count 4.4 K/mm3 (4.5-10.0)
[2021-08-21 13:19] LABS: Alanine Aminotransferase 21 U/L (4-50); Albumin Level 4.2 g/dL (3.5-5.1); Alkaline Phosphatase 82 U/L (38-126); Anion Gap 4 mmol/L (8-16); Aspartate Amino Transferase 31 U/L (17-59); Blood Urea Nitrogen 27 mg/dL (9-20); Calcium 9.3 mg/dL (8.4-10.2); Carbon Dioxide 32 mmol/L (22-30); Chloride 103 mmol/L (98-107); Cholesterol 178 mg/dL (0-200); Estimated Glomerular Filt Rate > 60; Glucose 118 mg/dL (65-110); HDL Direct 58 mg/dL; Potassium 4.5 mmol/L (3.4-5.0); Sodium 139 mmol/L (137-145); Triglycerides 77 mg/dL (<150); Uric Acid 5.7 mg/dL (3.5-8.5)
[2021-08-21 13:29] LABS: LDL Cholesterol Direct 100 mg/dL
== END 2021-08-21 09:08 | disposition home or self-care (01) ==
LOC: ANHLAB 09:09
PROVIDERS: PCP Family Medicine; Visit Provider Family Medicine
DX: N20.0 Calculus of kidney (principal)
CPT/HCPCS: 36415; 80053; 80061; 84550; 85025

== ENCOUNTER 2021-10-11 08:41 | Outpatient (CLI) | payer MEDICARE, OTHER, SELFPAY ==
[2021-10-11 09:58] LABS: Prostate Specific Antigen 1.6 ng/mL (< OR = 4.0)
[2021-10-14 21:43] LABS: Vitamin D 1,25 (OH)2 Total 53 pg/mL (18-72); Vitamin D2 1,25 (OH)2 <8 pg/mL; Vitamin D3 1,25 (OH)2 53 pg/mL
== END 2021-10-11 08:42 | disposition home or self-care (01) ==
PROVIDERS: PCP Family Medicine; Referring Provider Nurse Practitioner Gerontology; Visit Provider Family Medicine
DX: R79.89 Other specified abnormal findings of blood chemistry (principal); N20.0 Calculus of kidney; Z12.5 Encounter for screening for malignant neoplasm of prostate
CPT/HCPCS: 36415; 82652; 83036; 84153; 85610; G0103

== ENCOUNTER 2021-10-15 13:43 | Outpatient (CLI) | payer MEDICARE, OTHER, SELFPAY ==
--- NOTE | ~2021-10-15 | XR_ITS ---
XR abdomen/kub 1V 10/15/2021 14:03 Indication: Left renal stone Procedure: . KUB Comparison: Comparison to multiple prior studies sequentially, with oldest reviewed study dated 06/29. Findings: Bowel gas pattern is nonobstructive. There are left renal stones, unchanged. There is dextr oscoliosis of the lumbar spine. No acute osseous abnormality. Interval removal of left ureteral stent . Impression: 1: Left nephrolithiasis. Reviewed, dictated and finalized at location A. BRUSH DECORATOR Impression: 1: Left nephrolithiasis.
== END 2021-10-15 13:44 | disposition home or self-care (01) ==
PROVIDERS: PCP Family Medicine; Visit Provider Urology
DX: N20.0 Calculus of kidney (principal)
CPT/HCPCS: 74018

== ENCOUNTER 2021-12-03 12:09 | Outpatient (CLI) | payer MEDICARE, OTHER, SELFPAY ==
--- NOTE | ~2021-12-03 | XR_ITS ---
EXAMINATION: XR abdomen/kub 1V EXAM DATE: 12/03/2021 12:28 INDICATION: Left flank pain, discomfort. History kidney stones. TECHNIQUE: Frontal projection of the upper abdomen, frontal projection lower abdomen/pelvis for inter pretation. Comparison is made to prior examination from 10/15/2021. FINDINGS: There is moderate amount of colonic stool and gas. Some gas within small bowel which is nor mal in caliber, no obstruction suspected. Both renal contours are obscured by this bowel gas and stoo l. There is calcific density projecting lateral to the left 2nd transverse process, did not appear to be in this location on prior study. Possible left ureteropelvic junction stone. There may be additional left nephrolithiasis seen through bowel gas. There is mild dextroscoliosis. Moderate spondylosis. The spinal cord signal intensity and intrinsic m orphology is normal. Sternotomy wires and pacemaker leads. IMPRESSION: Calcific density, possible left UPJ stone. Additional left nephrolithiasis suspected. Reviewed, dictated and finalized at location G. UCT SUPPORT CONSULTANT IMPRESSION: Calcific density, possible left UPJ stone. Additional left nephrol ithiasis suspected.
== END 2021-12-03 12:10 | disposition home or self-care (01) ==
PROVIDERS: PCP Family Medicine; Visit Provider Urology
DX: N20.0 Calculus of kidney (principal)
CPT/HCPCS: 74018

== ENCOUNTER 2021-12-10 09:09 | Outpatient (RCR) | payer MEDICARE, OTHER, SELFPAY ==
[2021-09-11 10:53] LABS: Prothrombin Time 21.8 Seconds (11.1-14.7)
[2021-10-11 09:31] LABS: Prothrombin Time 22.3 Seconds (11.1-14.7)
[2021-11-15 09:42] LABS: Prothrombin Time 22.1 Seconds (11.1-14.7)
[2021-12-10 09:57] LABS: INR 2.7; Prothrombin Time 28.2 Seconds (11.1-14.7)
== END 2021-12-10 23:59 | disposition home or self-care (01) ==
LOC: ANHLAB 09:09
PROVIDERS: PCP Family Medicine; Visit Provider Internal Medicine Cardiovascular Disease
DX: Z51.81 Encounter for therapeutic drug level monitoring (principal); I48.91 Unspecified atrial fibrillation; Z79.01 Long term (current) use of anticoagulants
CPT/HCPCS: 36415; 85610

== ENCOUNTER 2022-02-01 11:05 | Emergency (ER) | payer MEDICARE, OTHER, SELFPAY ==
--- NOTE | ~2022-02-01 | CT_ITS ---
EXAMINATION: CT soft tissue neck w con EXAM DATE: 02/01/2022 14:21 INDICATION: Left lateral neck swelling. TECHNIQUE: Spiral CT of the neck was performed following intravenous injection of 75 mL Omnipaque 350 . Axial, coronal and sagittal images were reviewed. The dose-length product (DLP) for this examinat ion was 608.68 mGy-cm. The exposure was tailored according to patient size (auto mA exposure control ), and iterative reconstruction (ASIR) was used as additional dose reduction technique. There is no prior study for comparison. FINDINGS: There is inflammation, edema in the left parotid gland, platysmas muscle and superficially. Deep to the externally placed marker there is a focal peripherally enhancing hypodensity measuring 2 cm, differential diagnosis including necrotic primary parotid cancer, necrotic lymph node, abscess. There is no parotid duct stone identified. The thyroid gland is unremarkable. There is no cervical lymphadenopathy. There are no masses ident ified. The superior mediastinum is unremarkable. The airway is unremarkable. Parapharyngeal an d pre-glottic fat planes are preserved. The opacified vasculature is patent. Bilateral ocular matthias gical changes. Visualized sinuses and mastoid air cells are well aerated. Advanced lower cervical disc disease. Sternotomy wires. Lung apices are clear. IMPRESSION: Necrotic left carotid mass, extensive parotid and superficial inflammation. Consider righ t parotiditis, parotid cancer, necrotic lymph node, abscess. Reviewed, dictated and finalized at location B. IMPRESSION: Necrotic left carotid mass, extensive parotid and superficial infla mmation. Consider right parotiditis, parotid cancer, necrotic lymph node, absce ss.
[2022-02-01 11:15] VITALS: BP 151/88; PULSE 74; RESP 16; TEMP 36.4; O2SAT 100
[2022-02-01 12:55] VITALS: BP 151/91; PULSE 69; RESP 18; O2SAT 100
--- NOTE | 2022-02-01 13:07 | ED.GENADULT ---
HPI - General Adult General Chief complaint: Unspecified Stated complaint: obvious swelling to L neck Time Seen by Provider: 02/01/22 12:41 History of Present Illness HPI narrative: Patient is a 76 year old male with a history of mitral valve disease s/p mitral valve replacement on Coumadin, remote smoking history who presents for evaluation of swelling to his left lower mandible over the past 2 weeks. Patient states he first noticed the swelling while shaving and has noted the mass has increased in size since, nearly doubling over the past 24 hours. The mass is non-tender, and he denies any pain to his jaw. No trismus, drooling, difficulty breathing, fevers, chills. Denies pain after eating or drinking, or having a dry mouth. Related Data Home Medications Medication Instructions Recorded Confirmed warfarin 6 mg PO DAILY 10/10/19 09/08/21 aspirin 81 mg PO DAILY 05/20/21 09/08/21 Allergies Allergy/AdvReac Type Severity Reaction Status Date / Time No Known Allergies Allergy Verified 08/23/21 09:36 Review of Systems Review of Systems: All systems reviewed & are unremarkable except as noted in HPI and below PMFSH Past Medical History Medical History Anticoagulated by anticoagulation treatment Arthritis (Unknown) Atrial fibrillation once after MVR Degenerative arthritis of cervical spine (~1998) History of nephrolithiasis HLD (hyperlipidemia) HTN (hypertension) Mitral valve prolapse Pacemaker Surgical History Surgical History History of cataract extraction (~12/2014) History of cataract extraction (~03/2015) History of detached retina repair (~02/2006) History of detached retina repair (~01/1996) History of total left knee replacement (~12/2007) History of total right knee replacement (~12/2009) Hx of mitral valve replacement (~08/13/17) S/P mitral valve repair Total knee replacement status Family History Family History Mother Cancer lung cancer Father Lung cancer Social History Social History (Updated 08/23/21 @ 09:43 by Antoinette Saleem) Social History: Smoking status: Smoker, status unknown (Pt smokes cigars) Tobacco type: cigars Second hand tobacco smoke exposure: No Additional smoking assessment comments: SMOKES CIGARS OCC. Alcohol intake: current Drinks per week: 3 Substance use: never Substance use type: does not use Gender identity (if verbalized by the patient): Male Sexual Orientation (if Verbalized by the Patient): Straight or Heterosexual Spiritual care concerns: No Exam Const: General: cooperative and healthy appearing HENMT: Head: normal to inspection General nose exam: Normal external nose present Mouth: Yes Normal oral and palatal mucosa present, No dry mucous membranes and No muffled voice Other: Firm mass noted to left lower jaw near angle of mandible. Mass is non-mobile and non-tender. No overlying erythema or underlying fluctuance or induration. Eyes: General: appearance normal, both eyes and all related structures Neck: Neck: lymphadenopathy noted Chest: Chest palpation & inspection: normal inspection of the chest Resp: Effort & Inspection: normal respiratory effort, able to speak in complete sentences, no audible wheezes and no respiratory distress Auscultation: clear to auscultation bilaterally, no crackles, no rales, no rhonchi and no wheezes Cardio: Rate: regular rate Rhythm: regular rhythm Heart sounds: S1 normal heart sound present, S2 normal heart sound present and Murmur heart sound present Peripheral pulses: Peripheral pulses 2+ throughout GI: Inspection: normal to inspection GI Palp: No abdominal tenderness and Yes Soft to palpation Auscultation: normal bowel sounds Course Vital Signs Vital signs: Vital Signs Temperature 97.5 F L 02/01/22
[2022-02-01 13:36] LABS: Basophils Absolute Auto 0.1 K/mm3 (0.0-0.1); Basophils Percent Auto 0.7 % (0.2-1.2); Eosinophils Absolute Auto 0.1 K/mm3 (0-0.3); Eosinophils Percent Auto 1.1 % (0-4.4); Hematocrit 42.6 % (42.0-52.0); Immature Granulocyte Absolute 0.01 K/mm3 (0.00-0.031); Immature Granulocyte Percent A 0.1 % (0-0.5); Lymphocytes Absolute Auto 1.45 K/mm3 (0.9-3.2); Lymphocytes Percent Auto 19.5 % (18.3-44.2); Mean Corpuscular HGB Conc 32.9 g/dl (32-36); Mean Corpuscular Hemoglobin 32.5 pg (26-34); Mean Corpuscular Volume 98.8 fl (80-100); Mean Platelet Volume 8.7 fl (7.4-10.4); Monocytes Absolute Auto 0.8 K/mm3 (0.1-0.6); Neutrophils Percent Auto 67.6 % (45.5-73.1); Platelet Count Result 173 k/mm3 (150-375); Red Blood Count 4.31 M/mm3 (4.6-6.20); Red Cell Distribution Width 13.1 % (11.5-14.5); White Blood Count 7.5 K/mm3 (4.5-10.0)
[2022-02-01 13:48] LABS: Alanine Aminotransferase 20 U/L (4-50); Albumin Level 4.2 g/dL (3.5-5.1); Alkaline Phosphatase 89 U/L (38-126); Anion Gap 6 mmol/L (8-16); Aspartate Amino Transferase 32 U/L (17-59); Bilirubin,Total 2.3 mg/dL (0.2-1.3); Blood Urea Nitrogen 21 mg/dL (9-20); Calcium 8.8 mg/dL (8.4-10.2); Carbon Dioxide 29 mmol/L (22-30); Chloride 102 mmol/L (98-107); Estimated CRCL calculation 66 ml/min; Estimated Glomerular Filt Rate > 60; Glucose 94 mg/dL (65-110); Potassium 3.9 mmol/L (3.4-5.0); Sodium 137 mmol/L (137-145)
[2022-02-01 16:29] LABS: SARS-CoV-2 RNA PCR Negative
[2022-02-01 19:25] VITALS: BP 153/90; PULSE 78; RESP 18; TEMP 36.6; O2SAT 98
--- NOTE | 2022-02-01 19:33 | PC.NURSE ---
Handoff received from Jada EPPS. Patient found lying comfortably in ED stretcher. Calm and cooperative. AAOx4. Equal and unlabored resp. Skin is warm and dry. IV in place secured and patent. Vitals WNL. Patient is stable. No complaints at this time. Called report to [facility] in [place]. Handoff given to Donnell EPPS. ([phone]). [facility] ETA 3 hours. Patient updated.
[2022-02-01 22:58] VITALS: BP 157/100; PULSE 90; RESP 18; TEMP 36.6; O2SAT 97
== END 2022-02-01 23:10 | disposition short-term general hospital (02) ==
PROVIDERS: Physician Assistant; Emergency Provider Emergency Medicine; PCP Family Medicine
DX: K11.8 Other diseases of salivary glands (principal); Z20.822 Contact with and (suspected) exposure to COVID-19; E78.5 Hyperlipidemia, unspecified; I10 Essential (primary) hypertension; I34.1 Nonrheumatic mitral (valve) prolapse; M47.812 Spondylosis without myelopathy or radiculopathy, cervical region; Z95.0 Presence of cardiac pacemaker; Z96.653 Presence of artificial knee joint, bilateral; F17.290 Nicotine dependence, other tobacco product, uncomplicated; Z79.01 Long term (current) use of anticoagulants; Z98.49 Cataract extraction status, unspecified eye; Z95.2 Presence of prosthetic heart valve
CPT/HCPCS: 36415; 70491; 80053; 85025; 99285; C9803; Q9967; U0003; U0005

== ENCOUNTER 2022-03-18 09:24 | Outpatient (RCR) | payer MEDICARE, OTHER, SELFPAY ==
[2022-01-10 10:22] LABS: INR 2.4
[2022-02-15 15:55] LABS: INR 2.4; Prothrombin Time 25.5 Seconds (11.1-14.7)
[2022-03-18 10:25] LABS: INR 2.1; Prothrombin Time 22.8 Seconds (11.1-14.7)
== END 2022-04-10 23:59 | disposition home or self-care (01) ==
LOC: ANHLAB 09:24
PROVIDERS: PCP Family Medicine; Visit Provider Internal Medicine Cardiovascular Disease
DX: Z51.81 Encounter for therapeutic drug level monitoring (principal); I48.91 Unspecified atrial fibrillation; Z79.01 Long term (current) use of anticoagulants
CPT/HCPCS: 36415; 85610

== ENCOUNTER 2022-06-07 08:54 | Outpatient (CLI) | payer MEDICARE, OTHER, SELFPAY ==
--- NOTE | ~2022-06-07 | XR_ITS ---
XR abdomen/kub 1V 06/07/2022 09:09 Indication: Left renal stone Procedure: KUB Comparison: Comparison to multiple prior studies sequentially, with oldest reviewed study dated 08/03. Findings: There is a cluster of stones in the left kidney. Bowel gas pattern nonobstructive. There ar e unchanged pelvic phleboliths. There is dextroscoliosis of the lumbar spine. Impression: 1: Stable left nephrolithiasis. Reviewed, dictated and finalized at location A. Impression: 1: Stable left nephrolithiasis.
== END 2022-06-07 08:55 | disposition home or self-care (01) ==
LOC: ANHIMG 08:57
PROVIDERS: PCP Family Medicine; Visit Provider Urology
DX: N20.0 Calculus of kidney (principal)
CPT/HCPCS: 74018

== ENCOUNTER 2022-07-09 11:44 | Outpatient (RCR) | payer MEDICARE, OTHER, SELFPAY ==
[2022-04-29 11:04] LABS: INR 1.5; Prothrombin Time 17.1 Seconds (11.1-14.7)
[2022-05-10 10:19] LABS: INR 1.6; Prothrombin Time 18.8 Seconds (11.1-14.7)
[2022-06-03 10:10] LABS: INR 2.9; Prothrombin Time 29.6 Seconds (11.1-14.7)
[2022-07-09 12:18] LABS: INR 2.5; Prothrombin Time 26.3 Seconds (11.1-14.7)
== END 2022-07-28 23:59 | disposition home or self-care (01) ==
LOC: ANHLAB 11:44
PROVIDERS: PCP Family Medicine; Visit Provider Internal Medicine Cardiovascular Disease
DX: Z51.81 Encounter for therapeutic drug level monitoring (principal); Z79.01 Long term (current) use of anticoagulants
CPT/HCPCS: 36415; 85610

== ENCOUNTER 2022-08-12 16:00 | Outpatient (CLI) | payer MEDICARE, OTHER, SELFPAY ==
--- NOTE | ~2022-08-12 | US_ITS ---
. EXAMINATION: US soft tissue head and neck DATE: 08/12/2022 16:41 INDICATION: Left parotid mass. TECHNIQUE: Multiple grayscale and Doppler ultrasound images of the left neck and head were obtained. COMPARISON: CT neck 02/01/2022 FINDINGS: There is a 1.1 x 0.9 x 1.1 cm mixed cystic and solid hypoechoic mass in superficial left pa rotid gland. IMPRESSION: 1. 1.1 cm mass in left parotid gland. The differential diagnosis includes benign mixed tumor, Warthin tumor, and less likely dudley metastatic disease or primary malignancy. Reviewed, dictated and finalized at location A. IMPRESSION: 1. 1.1 cm mass in left parotid gland. The differential diagnosis includes benig n mixed tumor, Warthin tumor, and less likely dudley metastatic disease or prima ry malignancy.
== END 2022-08-12 16:01 | disposition home or self-care (01) ==
LOC: ANHIMG 16:02
PROVIDERS: PCP Family Medicine; Visit Provider Otolaryngology
DX: K11.8 Other diseases of salivary glands (principal)
CPT/HCPCS: 76536

== ENCOUNTER 2022-08-14 12:27 | Outpatient (CLI) | payer MEDICARE, OTHER, SELFPAY ==
--- NOTE | ~2022-08-14 | US_ITS ---
EXAMINATION: US FNA w image guidance DATE: 08/14/2022 13:21 INDICATION: Other diseases of salivary glands. Left parotid mass. TECHNIQUE: The procedure and its benefits and risks were discussed with the patient. Risks specifically discusse d included bleeding. The patient verbalized understanding of the risks and agreed to proceed. The nec k was prepped and draped in the usual sterile manner. 1% lidocaine was used for local anesthesia. 6 passes were made with a 25G needle into the lesion under ultrasound guidance. There were no immedia te complications. FINDINGS: Grayscale ultrasound images demonstrate needles advanced into an 11 mm mixed solid and cystic mass in superficial left parotid gland for biopsy. IMPRESSION: 1. Ultrasound-guided fine needle aspiration of a left parotid mass. Reviewed, dictated and finalized at location A.
== END 2022-08-14 12:28 | disposition home or self-care (01) ==
LOC: ANHIMG 12:29
PROVIDERS: PCP Family Medicine; Visit Provider Otolaryngology
DX: K11.8 Other diseases of salivary glands (principal)
CPT/HCPCS: 10005; 88173; 88305

== ENCOUNTER 2022-08-28 08:28 | Outpatient (CLI) | payer MEDICARE, OTHER, SELFPAY ==
[2022-08-28 08:44] LABS: Basophils Absolute Auto 0.1 K/mm3 (0.0-0.1); Eosinophils Absolute Auto 0.1 K/mm3 (0-0.3); Eosinophils Percent Auto 1.5 % (0-4.4); Hemoglobin 14.5 g/dL (14.0-18.0); Immature Granulocyte Absolute 0.01 K/mm3 (0.00-0.031); Immature Granulocyte Percent A 0.2 % (0-0.5); Lymphocytes Absolute Auto 1.11 K/mm3 (0.9-3.2); Lymphocytes Percent Auto 21.1 % (18.3-44.2); Monocytes Absolute Auto 0.5 K/mm3 (0.1-0.6); Monocytes Percent Auto 9.3 % (2.6-8.5); Neutrophils Absolute Auto 3.5 K/mm3 (1.3-6.7); Neutrophils Percent Auto 66.9 % (45.5-73.1); Platelet Count Result 169 k/mm3 (150-375); White Blood Count 5.3 K/mm3 (4.5-10.0)
[2022-08-28 08:58] LABS: Alanine Aminotransferase 22 U/L (6-50); Albumin Level 4.4 g/dL (3.5-5.1); Alkaline Phosphatase 81 U/L (38-126); Anion Gap 13 mmol/L (8-16); Aspartate Amino Transferase 29 U/L (17-59); Bilirubin,Total 1.3 mg/dL (0.2-1.3); Blood Urea Nitrogen 22 mg/dL (9-20); Calcium 9.2 mg/dL (8.4-10.2); Carbon Dioxide 31 mmol/L (22-30); Chloride 100 mmol/L (98-107); Cholesterol 161 mg/dL (0-200); Estimated Glomerular Filt Rate > 60; Glucose 130 mg/dL (65-110); HDL Direct 57 mg/dL; Potassium 4.1 mmol/L (3.4-5.0); Sodium 144 mmol/L (137-145); Triglycerides 89 mg/dL (<150)
[2022-08-28 09:01] LABS: Hemoglobin A1C 6.5 % (<5.7)
[2022-08-28 09:09] LABS: LDL Cholesterol Direct 76 mg/dL
== END 2022-08-28 08:29 | disposition home or self-care (01) ==
PROVIDERS: PCP Family Medicine; Visit Provider Physician Assistant
DX: I48.91 Unspecified atrial fibrillation (principal); R79.89 Other specified abnormal findings of blood chemistry
CPT/HCPCS: 36415; 80053; 80061; 83036; 84443; 85025

== ENCOUNTER 2022-10-02 01:19 | Day surgery (SDC) | payer MEDICARE, OTHER, SELFPAY ==
[2022-10-01 13:14] VITALS: BMI 25.4
[2022-10-02] VITALS (9 sets, daily range): BP systolic 116–149; BP diastolic 65–98; PULSE 66–76; RESP 14–21; TEMP 36.5–36.6; O2SAT 95–99; BMI 25.0
[2022-10-02 07:41] LABS: Basophils Absolute Auto 0.1 K/mm3 (0.0-0.1); Basophils Percent Auto 1.1 % (0.2-1.2); Eosinophils Absolute Auto 0.2 K/mm3 (0-0.3); Eosinophils Percent Auto 4.2 % (0-4.4); Hematocrit 45.4 % (42.0-52.0); Lymphocytes Absolute Auto 1.27 K/mm3 (0.9-3.2); Lymphocytes Percent Auto 28.3 % (18.3-44.2); Mean Corpuscular Hemoglobin 33.2 pg (26-34); Mean Corpuscular Volume 100.4 fl (80-100); Mean Platelet Volume 9.2 fl (7.4-10.4); Monocytes Absolute Auto 0.4 K/mm3 (0.1-0.6); Monocytes Percent Auto 8.9 % (2.6-8.5); Neutrophils Absolute Auto 2.6 K/mm3 (1.3-6.7); Neutrophils Percent Auto 57.5 % (45.5-73.1); Platelet Count Result 199 k/mm3 (150-375); Red Blood Count 4.52 M/mm3 (4.6-6.20); Red Cell Distribution Width 12.9 % (11.5-14.5); White Blood Count 4.5 K/mm3 (4.5-10.0)
[2022-10-02 07:52] LABS: INR 1.1; Prothrombin Time 13.8 Seconds (11.1-14.7)
[2022-10-02 07:55] LABS: Anion Gap 10 mmol/L (8-16); Blood Urea Nitrogen 33 mg/dL (9-20); Calcium 9.5 mg/dL (8.4-10.2); Carbon Dioxide 29 mmol/L (22-30); Chloride 103 mmol/L (98-107); Estimated CRCL calculation 65 ml/min; Estimated Glomerular Filt Rate > 60; Glucose 126 mg/dL (65-110); Potassium 3.9 mmol/L (3.4-5.0); Sodium 142 mmol/L (137-145)
--- NOTE | 2022-10-02 08:50 | PM.IMHP ---
H&P: HPI History of Present Illness Date/Time: 10/02/22 08:50 Chief Complaint: Patient presents for elective cardiac cath Narrative: Mr. Osorio is a very pleasant 77-year-old male who presents for an elective outpatient cardiac cath. Patient has a history of NOCAD, mitral valve replacement in 2017 for severe mitral regurgitation, history of dual-chamber Medtronic permanent pacemaker implantation. Patient had NSVT. MPI 03/2022 showed LVEF 43%, hypokinesis in the apical anterior segment and apical septal segment. Myocardial perfusion imaging is probably normal. Cannot exclude inferior nontransmural infarction with diaphragmatic attenuation artifact. Prone imaging was not performed. Given this, patient referred for [facility] for ischemic evaluation. His last cardiac catheterization in 2016 showed left main normal, LAD 20-30% stenosis in the proximal portion otherwise normal. Circumflex normal. RCA is normal. EDP 21mmHg. Patient denies any chest pain, shortness of breath, palpitations, lightheadedness/dizziness, syncope. Patient is very active, walking a few miles daily and biking several miles without any symptoms. Has not had any decline in functional activity. Review of Systems Review of Systems: 12-point ROS obtained. Negative, unless stated in HPI. [facility] Past Medical History Medical History Anticoagulated by anticoagulation treatment Arthritis (Unknown) Atrial fibrillation once after MVR Degenerative arthritis of cervical spine (~1998) History of nephrolithiasis HLD (hyperlipidemia) HTN (hypertension) Mitral valve prolapse Pacemaker Surgical History Surgical History History of cataract extraction (~12/2014) History of cataract extraction (~03/2015) History of detached retina repair (~02/2006) History of detached retina repair (~01/1996) History of total left knee replacement (~12/2007) History of total right knee replacement (~12/2009) Hx of mitral valve replacement (~08/13/17) S/P mitral valve repair Total knee replacement status Family History Family History Mother Cancer lung cancer Father Lung cancer Social History Social History Social History: Smoking status: Light tobacco smoker Tobacco type: pipe and cigars Second hand tobacco smoke exposure: No Additional smoking assessment comments: SMOKES CIGARS OCC (average 3 a week) Alcohol intake: current Drinks per week: 4 Alcohol use details: occasional use. Substance use: never Substance use type: does not use Lack of Transportation: No Lack of Food: Never True Current Housing: I Have Housing Concerned About Future Housing: No Difficulty Paying Gas/Electric Bills: No Difficulty Paying for Meds: No Currently Unemployed: No Difficulty w/ Childcare or Family Care: No Living arrangements: with family Gender identity (if verbalized by the patient): Male Sexual Orientation (if Verbalized by the Patient): Straight or Heterosexual Spiritual care concerns: No Meds Home Medications and Allergies Home Medications Medication Instructions Recorded Confirmed Type warfarin 4 mg tablet 8 mg PO DAILY 07/15/22 10/01/22 History multivitamin 1 tablet PO DAILY 10/01/22 10/02/22 History Allergies Allergy/AdvReac Type Severity Reaction Status Date / Time No Known Allergies Allergy Verified 10/02/22 07:36 Vital Signs Vital Signs - 24 hr 10/02/22 07:40 Temperature 36.5 C Pulse Rate 70 Respiratory Rate 14 Blood Pressure 149/98 H Pulse Oximetry 99 Oxygen Delivery Room Air Exam Const: General: comfortable and no acute distress HENMT: Mouth: Yes moist mucous membranes Eyes: General: appearance normal, both eyes and all related structures Sclera: sclerae normal Neck: Neck: s
[2022-10-02] MEDS: CLOPIDOGREL BISULFATE 300 MG TABLET 600 MG PO (08:51)
[2022-10-02] MEDS: ASPIRIN 325 MG TABLET PO (08:51)
[2022-10-02] MEDS: SODIUM CHLORIDE 0.9% IV 500 ML 100 ML IV CONT (08:51)
--- NOTE | 2022-10-02 08:59 | WPDMODSED ---
Moderate Sedation Note-Pt Data Patient Data Diagnosis: Abnormal stress test Present Complaint: Abnormal stress test Procedure to be performed/Plan: Coronary angiography, C Allergies Allergy/AdvReac Type Severity Reaction Status Date / Time No Known Allergies Allergy Verified 10/02/22 07:36 Home Medications Medication Instructions Recorded Confirmed Type warfarin 4 mg tablet 8 mg PO DAILY 07/15/22 10/01/22 History multivitamin 1 tablet PO DAILY 10/01/22 10/02/22 History Current Medications: Active Medications Sodium Chloride (Normal Saline Iv) 500 mls @ 100 mls/hr IV CONT .Q5H ANA Last Admin: 10/02/22 08:51 Dose: 100 mls/hr Sedation/Anesthesia: No previous sedation/anesthesia problems (including family history). [facility] Past Medical History Medical History Anticoagulated by anticoagulation treatment Arthritis (Unknown) Atrial fibrillation once after MVR Degenerative arthritis of cervical spine (~1998) History of nephrolithiasis HLD (hyperlipidemia) HTN (hypertension) Mitral valve prolapse Pacemaker Surgical History Surgical History History of cataract extraction (~12/2014) History of cataract extraction (~03/2015) History of detached retina repair (~02/2006) History of detached retina repair (~01/1996) History of total left knee replacement (~12/2007) History of total right knee replacement (~12/2009) Hx of mitral valve replacement (~08/13/17) S/P mitral valve repair Total knee replacement status Family History Family History Mother Cancer lung cancer Father Lung cancer Social History Social History Social History: Smoking status: Light tobacco smoker Tobacco type: pipe and cigars Second hand tobacco smoke exposure: No Additional smoking assessment comments: SMOKES CIGARS OCC (average 3 a week) Alcohol intake: current Drinks per week: 4 Alcohol use details: occasional use. Substance use: never Substance use type: does not use Lack of Transportation: No Lack of Food: Never True Current Housing: I Have Housing Concerned About Future Housing: No Difficulty Paying Gas/Electric Bills: No Difficulty Paying for Meds: No Currently Unemployed: No Difficulty w/ Childcare or Family Care: No Living arrangements: with family Gender identity (if verbalized by the patient): Male Sexual Orientation (if Verbalized by the Patient): Straight or Heterosexual Spiritual care concerns: No Mod Sed Physical Exam Physical Exam Pre Procedural Exam: Normal: Appearance, Lungs, Heart Rate, Heart Rhythm, Neuro Exam, Abdomen, Extremities and Skin Hours since solid foods: 12 Hours since liquid intake: 8 Mallampati Classification: class III Internal Medicine - PN: Obj Da Vital Signs Vital Signs: Vital Signs - 24 hr 10/02/22 07:40 Temperature 36.5 C Pulse Rate 70 Respiratory Rate 14 Blood Pressure 149/98 H Pulse Oximetry 99 Oxygen Delivery Room Air Meds/Results Medications: Active Medications Generic Name Dose Route Start Last Admin Trade Name Freq PRN Reason Stop Dose Admin Sodium Chloride 500 mls @ 100 mls/hr 10/02/22 08:00 10/02/22 08:51 Normal Saline Iv IV CONT 100 mls/hr .Q5H ANA Administration Labs 10/02/22 07:33 10/02/22 07:33 Labs: Laboratory Results - last 24 hr 10/02/22 10/02/22 10/02/22 07:33 07:33 07:33 WBC 4.5 RBC 4.52 L Hgb 15.0 Hct 45.4 MCV 100.4 H MCH 33.2 MCHC 33.0 RDW 12.9 Plt Count 199 MPV 9.2 Immature Gran % (Auto) 0.0 Neut % (Auto) 57.5 Lymph % (Auto) 28.3 [place] % (Auto) 8.9 H Eos % (Auto) 4.2 Baso % (Auto) 1.1 Lymph # (Auto) 1.27 [place] # (Auto) 0.4 Eos # (Auto) 0.2 Baso # (Au
--- NOTE | 2022-10-02 09:01 | WPDCARDPROC ---
Cardiac Cath Procedure Note Date of procedure:: 10/02/22 Performing physician:: CATHETERIZATION LABORATORY REPORT Procedure Date: 10/02/2022 Manager Review: Daniel Granda M.D., [facility]? Referring Physician: Dr. Davide Contreras M.D. ? Anesthesia: Versed and Fentanyl were ordered and given in my presence at 09:16, procedure ended at 09:34. Supervision of nurse monitored moderate sedation with Versed and Fentanyl was provided for 18 minutes. Total of Versed 1mg and Fentanyl 25mcg were administered by the Production Manager RN Maliha Wolf. Pre-op Diagnosis: Coronary artery disease Post-op Diagnosis: Non-obstructive coronary arteries with sluggish flow in the RCA Left ventricular end-diastolic pressure of 16mmHg Procedure(s): Left heart catheterization with coronary angiography Access Site: Right radial artery Brief History and Clinical Indications: Patient is a very pleasant 77-year-old male who presents for an elective outpatient cardiac cath. Patient has a history of NOCAD, mitral valve replacement in 2017 for severe mitral regurgitation, history of dual-chamber Medtronic permanent pacemaker implantation. Patient had NSVT. MPI 03/2022 showed LVEF 43%, hypokinesis in the apical anterior segment and apical septal segment. Myocardial perfusion imaging is probably normal. Cannot exclude inferior nontransmural infarction with diaphragmatic attenuation artifact. Prone imaging was not performed. Given this, patient referred for [facility] for ischemic evaluation. His last cardiac catheterization in 2016 showed left main normal, LAD 20-30% stenosis in the proximal portion otherwise normal. Circumflex normal. RCA is normal. EDP 21mmHg. Patient denies any chest pain, shortness of breath, palpitations, lightheadedness/dizziness, syncope. Patient is very active, walking a few miles daily and biking several miles without any symptoms. Has not had any decline in functional activity. All risks, benefits and alternatives to left heart catheterization with or without percutaneous coronary intervention was discussed at length with the patient. Risk of complications including but not limited to bleeding, infection, arrhythmia, stroke, worsening kidney function, blood loss, groin hematoma, limb loss, emergency coronary artery bypass grafting, and even were discussed with the patient and all questions were answered. The patient understood and wished to proceed. Time out called, patient name, date of , medical record number, allergies, procedure performed, identify Manager Review, patient and staff member concurred with accurate data, procedure carried on. Findings: LEFT HEART CATHETERIZATION FINDINGS: 1. Left main: Large caliber vessel. The left main coronary artery is widely patent without any significant obstructive disease. 2. Left anterior descending: Large caliber vessel. The LAD and the diagonal branches have mild luminal irregularities without any significant obstructive angiographic disease. 3. Ramus: Large caliber vessel. The Ramus has mild luminal irregularities without any significant obstructive angiographic disease. 4. Left circumflex: The left circumflex artery and the main marginal branches have mild luminal irregularities without any significant obstructive angiographic disease. 5. Right coronary artery: The RCA has mild luminal irregularities without any significant obstructive angiographic disease. The RCA is the dominant vessel. Sluggish flow noted in the RCA. 6. Left ventricle: A. End-diastolic pressure 16mmHg. B. LV gram deferred. C. No significant gradient across aortic valve on catheter pullback. Description of Procedure: Informed consent signed and placed in the chart. Patient transferred to laboratory manager room. Prepped and draped in usual sterile fashion. 2% lidocaine injected subcutaneously in right wrist area. 22-gauge venipuncture catheter used to access the right radial artery with the Seldinger technique. 6-FR slender sheat
--- NOTE | 2022-10-02 12:59 | SUR.PHASEII ---
Patient discharged in wheelchair with VSS. no complaints, discharge instructions reviewed. Patient taken to 's room who is admitted on 2nd medical to await ride from son later. Patient aware of 24 hours of no driving restrictions. Nayla EPPS on 2nd med aware.
== END 2022-10-02 12:45 | disposition home or self-care (01) ==
PROVIDERS: PCP Family Medicine; Visit Provider Internal Medicine
PROC: 4A023N7 Measurement of Cardiac Sampling and Pressure, Left Heart, Percutaneous Approach (ICD-10-PCS; CPT 93452; principal; 2022-10-02 08:30)
DX: I25.10 Atherosclerotic heart disease of native coronary artery without angina pectoris (principal); Z95.0 Presence of cardiac pacemaker; Z95.4 Presence of other heart-valve replacement; R94.39 Abnormal result of other cardiovascular function study; Z79.01 Long term (current) use of anticoagulants; I10 Essential (primary) hypertension; E78.5 Hyperlipidemia, unspecified; F17.290 Nicotine dependence, other tobacco product, uncomplicated
CPT/HCPCS: 36415; 80048; 85025; 85610; 93458; A9270; C1769; C1887; C1894; J1644; J2250; J3010; J7040

== ENCOUNTER 2022-10-16 08:16 | Outpatient (RCR) | payer MEDICARE, OTHER, SELFPAY ==
[2022-08-06 16:03] LABS: Prothrombin Time 21.9 Seconds (11.1-14.7)
[2022-08-22 11:34] LABS: INR 1.7; Prothrombin Time 18.9 Seconds (11.1-14.7)
[2022-09-19 10:46] LABS: INR 2.8; Prothrombin Time 28.3 Seconds (11.1-14.7)
[2022-10-09 12:10] LABS: INR 1.7
[2022-10-16 08:51] LABS: INR 2.1; Prothrombin Time 22.6 Seconds (11.1-14.7)
== END 2022-11-04 23:59 | disposition home or self-care (01) ==
LOC: ANHLAB 08:16
PROVIDERS: PCP Family Medicine; Visit Provider Internal Medicine Cardiovascular Disease
DX: Z51.81 Encounter for therapeutic drug level monitoring (principal); Z79.01 Long term (current) use of anticoagulants
CPT/HCPCS: 36415; 85610

== ENCOUNTER 2022-11-11 13:18 | Emergency (ER) | payer MEDICARE, OTHER, SELFPAY ==
[2022-11-11 13:23] VITALS: BP 144/89; PULSE 78; RESP 16; TEMP 36.2; O2SAT 98
--- NOTE | 2022-11-11 13:27 | ED.URI ---
HPI - URI/Sore Throat General Chief Complaint: Upper Respiratory Infection Stated Complaint: cough, runny nose, congestion Time Seen by Provider: 11/11/22 13:42 Source: patient and RN notes reviewed Mode of arrival: ambulatory Limitations: no limitations History of Present Illness HPI Narrative: 77-year-old male presents with concern for a 12 day history of slight productive cough, clogged ears, sinus congestion, sinus drainage. Reports he traveled before the symptoms started, his has similar symptoms. He has been taking Coricidin HBP and Mucinex with little relief MD elicited complaint: cough and sore throat Related Data Home Medications Medication Instructions Recorded Confirmed warfarin 4 mg tablet 8 mg PO DAILY 07/15/22 11/11/22 multivitamin 1 tablet PO DAILY 10/01/22 11/11/22 Allergies Allergy/AdvReac Type Severity Reaction Status Date / Time No Known Allergies Allergy Verified 11/11/22 13:36 Review of Systems Review of Systems: CONSTITUTIONAL: Reports malaise. Denies chills, sweats, or fever. EYES: Denies visual changes, redness, or discharge. ENT: Reports rhinorrhea, congestion, sinus pain, otalgia. Denies sore throat. CARDIOVASCULAR: Denies chest pain, palpitations, or edema. RESPIRATORY: Reports cough. Denies dyspnea. GASTROINTESTINAL: Denies abdominal pain, nausea, vomiting, diarrhea SKIN: Denies rash or itching. MUSCULOSKELETAL: Denies myalgia. NEUROLOGIC: Reports headache. All systems reviewed & are unremarkable except as noted in HPI and below PMFSH Past Medical History Medical History Anticoagulated by anticoagulation treatment Arthritis (Unknown) Atrial fibrillation once after MVR Degenerative arthritis of cervical spine (~1998) History of nephrolithiasis HLD (hyperlipidemia) HTN (hypertension) Mitral valve prolapse Pacemaker Surgical History Surgical History History of cataract extraction (~12/2014) History of cataract extraction (~03/2015) History of detached retina repair (~02/2006) History of detached retina repair (~01/1996) History of total left knee replacement (~12/2007) History of total right knee replacement (~12/2009) Hx of mitral valve replacement (~08/13/17) S/P mitral valve repair Total knee replacement status Family History Family History Mother Cancer lung cancer Father Lung cancer Social History Social History Social History: Smoking status: Light tobacco smoker Tobacco type: pipe and cigars Second hand tobacco smoke exposure: No Additional smoking assessment comments: SMOKES CIGARS OCC (average 3 a week) Alcohol intake: current Drinks per week: 4 Alcohol use details: occasional use. Substance use: never Substance use type: does not use Lack of Transportation: No Lack of Food: Never True Current Housing: I Have Housing Concerned About Future Housing: No Difficulty Paying Gas/Electric Bills: No Difficulty Paying for Meds: No Currently Unemployed: No Difficulty w/ Childcare or Family Care: No Gender identity (if verbalized by the patient): Male Sexual Orientation (if Verbalized by the Patient): Straight or Heterosexual Spiritual care concerns: No Comments At time of signature, agree with nursing past medical, surgical, social and family history. There is no relevant family history pertinent to the presenting complaint Exam Narrative: GENERAL: Well-appearing, well-nourished, and in no acute distress. HEAD: Normocephalic EYES: PERRLA, conjunctivae clear ENT: Nares clear, turbinates edematous and erythematous. Mucous membranes moist. TM pearly drew with dull light reflex bilaterally; no tragal tenderness. Oropharynx not erythematous without lesions. Tonsils not enlarged and without exudat
== END 2022-11-11 13:51 | disposition home or self-care (01) ==
PROVIDERS: Emergency Provider Nurse Practitioner; PCP Family Medicine
DX: J01.90 Acute sinusitis, unspecified (principal); F17.290 Nicotine dependence, other tobacco product, uncomplicated; M19.90 Unspecified osteoarthritis, unspecified site; I48.91 Unspecified atrial fibrillation; M50.30 Other cervical disc degeneration, unspecified cervical region; E78.5 Hyperlipidemia, unspecified; I10 Essential (primary) hypertension; I34.1 Nonrheumatic mitral (valve) prolapse; Z95.0 Presence of cardiac pacemaker; Z96.653 Presence of artificial knee joint, bilateral; Z79.01 Long term (current) use of anticoagulants
CPT/HCPCS: 99213; G0463

== ENCOUNTER 2022-12-30 09:14 | Outpatient (CLI) | payer MEDICARE, OTHER, SELFPAY ==
--- NOTE | ~2022-12-30 | XR_ITS ---
Supine views of the abdomen Clinical history: Renal stone COMPARISON: 06/07/2022 Findings: Bowel gas pattern is nonspecific. No evidence for obstruction or free air. Probable small l eft renal stones present. Calcified pelvic phleboliths are unchanged. Osseous structures are intact. Impression: Probable small left renal stones. Reviewed, dictated and finalized at [facility]. 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
== END 2022-12-30 09:15 | disposition home or self-care (01) ==
PROVIDERS: PCP Family Medicine; Visit Provider Urology
DX: N20.0 Calculus of kidney (principal)
CPT/HCPCS: 74018

== ENCOUNTER 2023-01-14 08:40 | Outpatient (RCR) | payer MEDICARE, OTHER, SELFPAY ==
[2022-11-16 10:34] LABS: INR 2.2; Prothrombin Time 23.5 Seconds (11.1-14.7)
[2023-01-14 09:19] LABS: INR 2.1; Prothrombin Time 22.6 Seconds (11.1-14.7)
== END 2023-02-14 23:59 | disposition home or self-care (01) ==
LOC: ANHLAB 08:40
PROVIDERS: PCP Family Medicine; Visit Provider Internal Medicine Cardiovascular Disease
DX: Z51.81 Encounter for therapeutic drug level monitoring (principal); Z79.01 Long term (current) use of anticoagulants
CPT/HCPCS: 36415; 85610

== ENCOUNTER 2023-03-05 09:18 | Outpatient (CLI) | payer MEDICARE, OTHER, SELFPAY ==
[2023-03-05 09:52] LABS: Eosinophils Absolute Auto 0.1 K/mm3 (0-0.3); Hematocrit 40.7 % (42.0-52.0); Hemoglobin 13.5 g/dL (14.0-18.0); Lymphocytes Absolute Auto 1.31 K/mm3 (0.9-3.2); Lymphocytes Percent Auto 32.9 % (18.3-44.2); Mean Corpuscular HGB Conc 33.2 g/dl (32-36); Mean Corpuscular Hemoglobin 32.8 pg (26-34); Mean Platelet Volume 8.9 fl (7.4-10.4); Monocytes Absolute Auto 0.3 K/mm3 (0.1-0.6); Monocytes Percent Auto 7.3 % (2.6-8.5); Neutrophils Absolute Auto 2.2 K/mm3 (1.3-6.7); Neutrophils Percent Auto 55.8 % (45.5-73.1); Platelet Count Result 161 k/mm3 (150-375); Red Blood Count 4.11 M/mm3 (4.6-6.20); Red Cell Distribution Width 12.9 % (11.5-14.5)
[2023-03-05 10:01] LABS: Alanine Aminotransferase 35 U/L (6-50); Albumin Level 3.9 g/dL (3.5-5.1); Alkaline Phosphatase 88 U/L (38-126); Anion Gap 2 mmol/L (8-16); Aspartate Amino Transferase 36 U/L (17-59); Bilirubin,Total 1.1 mg/dL (0.2-1.3); Blood Urea Nitrogen 23 mg/dL (9-20); Calcium 8.6 mg/dL (8.4-10.2); Carbon Dioxide 34 mmol/L (22-30); Chloride 104 mmol/L (98-107); Cholesterol 150 mg/dL (0-200); Estimated Glomerular Filt Rate > 60; Glucose 116 mg/dL (65-110); HDL Direct 35 mg/dL; Potassium 4.4 mmol/L (3.4-5.0); Sodium 140 mmol/L (137-145); Triglycerides 124 mg/dL (<150); Uric Acid 3.8 mg/dL (3.5-8.5)
[2023-03-05 10:14] LABS: LDL Cholesterol Direct 84 mg/dL
[2023-03-05 10:18] LABS: Hemoglobin A1C 6.4 % (<5.7)
[2023-03-05 10:30] LABS: Creatinine Urine 182.8 mg/dL
[2023-03-05 10:35] LABS: MALB Creatinine Ratio 14.4 mg/g (0-30); Microalbumin Urine Random 26.3 mg/L (0-16.7)
[2023-03-05 11:04] LABS: Atypical Lymphocytes Present; Platelet Estimate Adequate (Adequate); Schistocytes None Seen (NORMAL)
[2023-03-09 10:48] LABS: Anti Cyclic Citrullinated Pept <16 Units (<20)
[2023-03-09 23:41] LABS: Vitamin D 1,25 (OH)2 Total 51 pg/mL (18-72); Vitamin D2 1,25 (OH)2 <8 pg/mL; Vitamin D3 1,25 (OH)2 51 pg/mL
== END 2023-03-05 09:19 | disposition home or self-care (01) ==
PROVIDERS: PCP Family Medicine; Visit Provider Family Medicine
DX: N20.0 Calculus of kidney (principal); E11.9 Type 2 diabetes mellitus without complications; E78.2 Mixed hyperlipidemia; Z98.890 Other specified postprocedural states; I45.9 Conduction disorder, unspecified; M19.90 Unspecified osteoarthritis, unspecified site; I25.10 Atherosclerotic heart disease of native coronary artery without angina pectoris
CPT/HCPCS: 36415; 80053; 80061; 82043; 82652; 83036; 84550; 85025; 86200

== ENCOUNTER 2023-03-12 08:55 | Outpatient (CLI) | payer MEDICARE, OTHER, SELFPAY ==
[2023-03-12 10:11] LABS: Basophils Percent Auto 0.9 % (0.2-1.2); Eosinophils Absolute Auto 0.1 K/mm3 (0-0.3); Eosinophils Percent Auto 2.4 % (0-4.4); Hematocrit 40.2 % (42.0-52.0); Hemoglobin 13.4 g/dL (14.0-18.0); Immature Granulocyte Absolute 0.01 K/mm3 (0.00-0.031); Immature Granulocyte Percent A 0.2 % (0-0.5); Lymphocytes Percent Auto 28.4 % (18.3-44.2); Mean Corpuscular HGB Conc 33.3 g/dl (32-36); Mean Corpuscular Hemoglobin 33.1 pg (26-34); Mean Corpuscular Volume 99.3 fl (80-100); Mean Platelet Volume 9.3 fl (7.4-10.4); Monocytes Absolute Auto 0.4 K/mm3 (0.1-0.6); Monocytes Percent Auto 8.3 % (2.6-8.5); Neutrophils Absolute Auto 2.5 K/mm3 (1.3-6.7); Neutrophils Percent Auto 59.8 % (45.5-73.1); Platelet Count Result 197 k/mm3 (150-375); Red Blood Count 4.05 M/mm3 (4.6-6.20); Red Cell Distribution Width 12.9 % (11.5-14.5); White Blood Count 4.2 K/mm3 (4.5-10.0)
[2023-03-12 10:40] LABS: Iron 76 ug/dL (49-181)
[2023-03-12 10:49] LABS: Percent Iron Saturation 25 % (20-50)
[2023-03-16 12:24] LABS: Red Blood Cell Folate 778 ng/mL RBC (>280)
== END 2023-03-12 08:56 | disposition home or self-care (01) ==
PROVIDERS: PCP Family Medicine; Visit Provider Physician Assistant
DX: D50.8 Other iron deficiency anemias (principal); D64.9 Anemia, unspecified; Z98.890 Other specified postprocedural states; D72.819 Decreased white blood cell count, unspecified
CPT/HCPCS: 36415; 82728; 82747; 83540; 83550; 85025; 85610

== ENCOUNTER 2023-03-28 03:08 | Day surgery (SDC) | payer MEDICARE, OTHER, SELFPAY ==
[2023-03-17 09:51] VITALS: BMI 25.9
[2023-03-28 13:29] VITALS: BP 148/83; PULSE 63; RESP 19; TEMP 36.2; O2SAT 100
[2023-03-28] MEDS: LACTATED RINGERS 1,000 ML 150 ML IV CONT (13:46)
[2023-03-28] MEDS: GENTAMICIN 80MG/SOD CHL 50 ML 80 MG/50 ML BAG 100 MG IVPB (13:47)
--- NOTE | 2023-03-28 14:10 | PM.HPGS ---
History of Present Illness History of Present Illness Consent: Risks, benefits, and alternatives have been discussed and questions answered. Patient agrees to proceed with procedure. Chief complaint: neoplasm screening, SOTERO Narrative: Leroy Osorio is a 77 year old male Referred for colon cancer screening. He has been found to be anemic. 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 Pacemaker Surgical History Surgical History History of cataract extraction (~12/2014) History of cataract extraction (~03/2015) History of detached retina repair (~02/2006) History of detached retina repair (~01/1996) History of total left knee replacement (~12/2007) History of total right knee replacement (~12/2009) Hx of mitral valve replacement (~08/13/17) S/P mitral valve repair Total knee replacement status Family History Family History Mother Cancer lung cancer Father Lung cancer Social History Social History Social History: Smoking status: Current every day smoker Tobacco type: cigars Second hand tobacco smoke exposure: No Additional smoking assessment comments: SMOKES CIGARS OCC (average 3 a week) Alcohol intake: current Drinks per week: 4 Alcohol use details: wine Substance use: never Substance use type: does not use Lack of Transportation: No Lack of Food: Never True Current Housing: I Have Housing Concerned About Future Housing: No Difficulty Paying Gas/Electric Bills: No Difficulty Paying for Meds: No Currently Unemployed: No Difficulty w/ Childcare or Family Care: No Living arrangements: with family Occupation/Education: retired Gender identity (if verbalized by the patient): Male Sexual Orientation (if Verbalized by the Patient): Straight or Heterosexual Spiritual care concerns: No Meds Home Medications and Allergies Home Medications Medication Instructions Recorded Confirmed Type warfarin 4 mg tablet 8 mg PO DAILY 07/15/22 03/28/23 History multivitamin 1 tablet PO DAILY 10/01/22 03/17/23 History metoprolol succinate 25 mg 25 mg PO DAILY 01/08/23 03/17/23 History tablet,extended release 24 hr (Toprol XL) Allergies Allergy/AdvReac Type Severity Reaction Status Date / Time No Known Allergies Allergy Verified 03/28/23 13:27 Vital Signs Vital Signs - 24 hr 03/28/23 13:29 Temperature 36.2 C L Pulse Rate 63 Respiratory Rate 19 Blood Pressure 148/83 H Pulse Oximetry 100 Oxygen Delivery Room Air Exam Const: General: alert Orientation/consciousness: patient oriented x3 Resp: Auscultation: clear to auscultation bilaterally Cardio: Rhythm: regular rhythm GI: GI Palp: Yes Soft to palpation and No Tenderness to palpation present (GI) Neuro: General: patient oriented x3 Assessment and Plan Assessment and plan (1) Screening for colon cancer: Code(s): Z12.11 - Encounter for screening for malignant neoplasm of colon Status: Acute Assessment and Plan: Colonoscopy with possible biopsy or polypectomy or cautery or injection of substances.
[2023-03-28] MEDS: AMPICILLIN 2 GM/NS 100 ML 2 GM/100 ML BAG IVPB (14:12)
--- NOTE | 2023-03-28 14:48 | WPDANESEPPF ---
Anes - Initial Pre Proc Eval Procedure: Operation Date: 03/28/23 14:30 Proposed Procedures p Colonoscopy - Ravi Chavez MD Date/Time: 03/28/23 14:48 Surgeon: Ravi Chavez MD Pre Op Diagnosis: neoplasm screening, [facility] Patient Data Age: 77 Gender: M Height: 1.78 m Weight: 80.9 kg Last Vital Signs Temp 97.2 F L 03/28/23 13:29 Pulse 63 03/28/23 13:29 Resp 19 03/28/23 13:29 BP 148/83 H 03/28/23 13:29 Pulse Ox 100 03/28/23 13:29 O2 Del Method Room Air 03/28/23 13:29 Allergies Allergy/AdvReac Type Severity Reaction Status Date / Time No Known Allergies Allergy Verified 03/28/23 13:27 Home Medications Medication Instructions Recorded Confirmed Type warfarin 4 mg tablet 8 mg PO DAILY 07/15/22 03/28/23 History multivitamin 1 tablet PO DAILY 10/01/22 03/17/23 History metoprolol succinate 25 mg 25 mg PO DAILY 01/08/23 03/17/23 History tablet,extended release 24 hr (Toprol XL) Patient hx anesthesia problems: none Family hx anesthesia problems: none Results Review: All pre-operative results and documents have been reviewed as part of the pre-operative evaluation. [facility] Past Medical History Medical History Anticoagulated by anticoagulation treatment Arthritis (Unknown) Atrial fibrillation once after MVR Coronary artery disease Degenerative arthritis of cervical spine (~1998) Hematuria History of nephrolithiasis HLD (hyperlipidemia) HTN (hypertension) Mitral valve prolapse Obstruction of left ureteropelvic junction due to stone Pacemaker Surgical History Surgical History History of cataract extraction (~12/2014) History of cataract extraction (~03/2015) History of detached retina repair (~02/2006) History of detached retina repair (~01/1996) History of total left knee replacement (~12/2007) History of total right knee replacement (~12/2009) Hx of mitral valve replacement (~08/13/17) S/P mitral valve repair Total knee replacement status Family History Family History Mother Cancer lung cancer Father Lung cancer Social History Social History Social History: Smoking status: Current every day smoker Tobacco type: cigars Second hand tobacco smoke exposure: No Additional smoking assessment comments: SMOKES CIGARS OCC (average 3 a week) Alcohol intake: current Drinks per week: 4 Alcohol use details: wine Substance use: never Substance use type: does not use Lack of Transportation: No Lack of Food: Never True Current Housing: I Have Housing Concerned About Future Housing: No Difficulty Paying Gas/Electric Bills: No Difficulty Paying for Meds: No Currently Unemployed: No Difficulty w/ Childcare or Family Care: No Living arrangements: with family Occupation/Education: retired Gender identity (if verbalized by the patient): Male Sexual Orientation (if Verbalized by the Patient): Straight or Heterosexual Spiritual care concerns: No Anes - Eval Final PreProcedure Day of Procedure 03/28/23 14:48 Patient weight: normal Heart: irregular rhythm Lungs: clear to auscultation Neurological: alert and oriented Last oral intake: >/= 8 hours ASA classification: III Emergent: no Anesthetic plan: proceed Anesthesia type and monitoring: general GIVS and standard monitoring Results Review: All pre-operative results and documents have been reviewed as part of the pre-operative evaluation. Informed Consent: The patient's anesthetic plan and its attendant risks and benefits were discussed with the patient/family/POA. Questions were solicited and answers provided to the satisfaction of the patient/family/POA.
[2023-03-28] MEDS: SIMETHICONE ORAL SUSPENSION 20 MG/0.3 ML 30 ML BOTTLE 0.6 ML IRRIGATION (15:04)
[2023-03-28 15:24] VITALS: BP 107/81; PULSE 61; RESP 20; O2SAT 91
[2023-03-28 15:34] VITALS: BP 106/60; BP 111/68; PULSE 62; PULSE 64; RESP 16; RESP 19; O2SAT 95; O2SAT 98
== END 2023-03-28 15:57 | disposition home or self-care (01) ==
PROVIDERS: PCP Family Medicine; Visit Provider Internal Medicine Gastroenterology
PROC: 0DJD8ZZ Inspection of Lower Intestinal Tract, Via Natural or Artificial Opening Endoscopic (ICD-10-PCS; CPT 45378; principal; 2023-03-28 14:30)
DX: Z12.11 Encounter for screening for malignant neoplasm of colon (principal); K64.8 Other hemorrhoids; K57.30 Diverticulosis of large intestine without perforation or abscess without bleeding; D50.9 Iron deficiency anemia, unspecified; I25.10 Atherosclerotic heart disease of native coronary artery without angina pectoris; I10 Essential (primary) hypertension; E78.5 Hyperlipidemia, unspecified; Z95.0 Presence of cardiac pacemaker; Z79.01 Long term (current) use of anticoagulants; Z72.0 Tobacco use; Z95.4 Presence of other heart-valve replacement
CPT/HCPCS: G0121; J0290; J1580; J2001; J2704; J7120

== ENCOUNTER 2023-05-02 09:42 | Outpatient (CLI) | payer MEDICARE, OTHER, SELFPAY ==
[2023-05-02 10:05] LABS: Basophils Absolute Auto 0.1 K/mm3 (0.0-0.1); Eosinophils Absolute Auto 0.1 K/mm3 (0-0.3); Eosinophils Percent Auto 2.6 % (0-4.4); Hematocrit 40.9 % (42.0-52.0); Hemoglobin 13.5 g/dL (14.0-18.0); Immature Granulocyte Absolute 0.01 K/mm3 (0.00-0.031); Immature Granulocyte Percent A 0.2 % (0-0.5); Lymphocytes Absolute Auto 1.32 K/mm3 (0.9-3.2); Lymphocytes Percent Auto 26.8 % (18.3-44.2); Mean Platelet Volume 9.1 fl (7.4-10.4); Monocytes Absolute Auto 0.4 K/mm3 (0.1-0.6); Monocytes Percent Auto 8.9 % (2.6-8.5); Neutrophils Percent Auto 60.5 % (45.5-73.1); Platelet Count Result 161 k/mm3 (150-375); Red Blood Count 4.09 M/mm3 (4.6-6.20); Red Cell Distribution Width 13.2 % (11.5-14.5); White Blood Count 4.9 K/mm3 (4.5-10.0)
== END 2023-05-02 09:43 | disposition home or self-care (01) ==
LOC: ANHLAB 09:44
PROVIDERS: PCP Family Medicine; Visit Provider Physician Assistant
DX: D50.8 Other iron deficiency anemias (principal); D64.9 Anemia, unspecified
CPT/HCPCS: 36415; 82607; 85025

== ENCOUNTER 2023-05-16 15:04 | Outpatient (RCR) | payer MEDICARE, OTHER, SELFPAY ==
[2023-02-19 11:39] LABS: INR 2.8; Prothrombin Time 28.2 Seconds (11.1-14.7)
[2023-03-12 10:15] LABS: INR 3.2; Prothrombin Time 35.1 Seconds (11.1-14.7)
[2023-04-17 09:37] LABS: INR 2.5; Prothrombin Time 28.7 Seconds (11.1-14.7)
[2023-05-16 16:23] LABS: INR 2.5; Prothrombin Time 28.7 Seconds (11.1-14.7)
== END 2023-05-20 23:59 | disposition home or self-care (01) ==
LOC: ANHLAB 15:04
PROVIDERS: PCP Family Medicine; Visit Provider Internal Medicine Cardiovascular Disease
DX: Z51.81 Encounter for therapeutic drug level monitoring (principal); Z79.01 Long term (current) use of anticoagulants
CPT/HCPCS: 36415; 85610

== ENCOUNTER 2023-06-05 09:57 | Outpatient (CLI) | payer MEDICARE, OTHER, SELFPAY ==
[2023-06-05 10:47] LABS: Basophils Absolute Auto 0.1 K/mm3 (0.0-0.1); Eosinophils Absolute Auto 0.2 K/mm3 (0-0.3); Eosinophils Percent Auto 3.7 % (0-4.4); Hematocrit 39.9 % (42.0-52.0); Hemoglobin 13.2 g/dL (14.0-18.0); Immature Granulocyte Absolute 0.01 K/mm3 (0.00-0.031); Immature Granulocyte Percent A 0.2 % (0-0.5); Lymphocytes Absolute Auto 1.29 K/mm3 (0.9-3.2); Lymphocytes Percent Auto 25.2 % (18.3-44.2); Mean Corpuscular HGB Conc 33.1 g/dl (32-36); Mean Corpuscular Hemoglobin 32.8 pg (26-34); Mean Platelet Volume 9.4 fl (7.4-10.4); Monocytes Absolute Auto 0.5 K/mm3 (0.1-0.6); Monocytes Percent Auto 8.8 % (2.6-8.5); Neutrophils Absolute Auto 3.1 K/mm3 (1.3-6.7); Neutrophils Percent Auto 61.1 % (45.5-73.1); Platelet Count Result 155 k/mm3 (150-375); Red Blood Count 4.03 M/mm3 (4.6-6.20); Red Cell Distribution Width 12.8 % (11.5-14.5); White Blood Count 5.1 K/mm3 (4.5-10.0)
== END 2023-06-05 09:58 | disposition home or self-care (01) ==
LOC: ANHLAB 09:58
PROVIDERS: PCP Family Medicine; Visit Provider Physician Assistant
DX: D50.8 Other iron deficiency anemias (principal)
CPT/HCPCS: 36415; 85025

== ENCOUNTER 2023-07-02 12:13 | Outpatient (CLI) | payer MEDICARE, OTHER, SELFPAY ==
--- NOTE | ~2023-07-02 | XR_ITS ---
EXAM: XR abdomen/kub 1V DATE: 07/02/2023 12:38 HISTORY: KIDNEY STONES, FOLLOW-UP LEFT . COMPARISON: 12/30/2022. FINDINGS: Partially visualized sternotomy wires and pacer wires. Bibasilar scar/atelectasis. Clear l lex bases. Normal bowel gas pattern. No organomegaly. Stable left renal stones. Lumbar scoliosis and degenerative disc disease. Bilateral hip osteoarthritis. Pelvic phleboliths. IMPRESSION: Stable left nephrolithiasis. Reviewed, dictated and finalized at location K.
== END 2023-07-02 12:14 | disposition home or self-care (01) ==
PROVIDERS: PCP Family Medicine; Visit Provider Urology
DX: N20.0 Calculus of kidney (principal)
CPT/HCPCS: 74018

== ENCOUNTER 2023-08-26 12:24 | Outpatient (CLI) | payer MEDICARE, OTHER, SELFPAY ==
[2023-08-26 12:48] LABS: Basophils Absolute Auto 0.1 K/mm3 (0.0-0.1); Basophils Percent Auto 0.9 % (0.2-1.2); Eosinophils Absolute Auto 0.1 K/mm3 (0-0.3); Eosinophils Percent Auto 1.1 % (0-4.4); Hematocrit 42.6 % (42.0-52.0); Hemoglobin 14.1 g/dL (14.0-18.0); Immature Granulocyte Absolute 0.01 K/mm3 (0.00-0.031); Immature Granulocyte Percent A 0.2 % (0-0.5); Lymphocytes Absolute Auto 1.47 K/mm3 (0.9-3.2); Lymphocytes Percent Auto 26.8 % (18.3-44.2); Mean Corpuscular HGB Conc 33.1 g/dl (32-36); Mean Corpuscular Hemoglobin 32.6 pg (26-34); Mean Corpuscular Volume 98.6 fl (80-100); Mean Platelet Volume 8.9 fl (7.4-10.4); Monocytes Absolute Auto 0.4 K/mm3 (0.1-0.6); Monocytes Percent Auto 7.3 % (2.6-8.5); Neutrophils Absolute Auto 3.5 K/mm3 (1.3-6.7); Neutrophils Percent Auto 63.7 % (45.5-73.1); Platelet Count Result 165 k/mm3 (150-375); Red Blood Count 4.32 M/mm3 (4.6-6.20); White Blood Count 5.5 K/mm3 (4.5-10.0)
[2023-08-26 12:57] LABS: Alanine Aminotransferase 24 U/L (6-50); Albumin Level 4.1 g/dL (3.5-5.1); Alkaline Phosphatase 75 U/L (38-126); Anion Gap 6 mmol/L (8-16); Aspartate Amino Transferase 30 U/L (17-59); Blood Urea Nitrogen 25 mg/dL (9-20); Calcium 9.6 mg/dL (8.4-10.2); Carbon Dioxide 26 mmol/L (22-30); Chloride 105 mmol/L (98-107); Cholesterol 178 mg/dL (0-200); Estimated Glomerular Filt Rate > 60; Glucose 97 mg/dL (65-110); HDL Direct 48 mg/dL; Potassium 4.3 mmol/L (3.4-5.0); Sodium 137 mmol/L (137-145); Triglycerides 136 mg/dL (<150)
[2023-08-26 13:08] LABS: Hemoglobin A1C 6.1 % (<5.7)
[2023-08-26 13:09] LABS: LDL Cholesterol Direct 94 mg/dL
[2023-08-28 20:29] LABS: ANA Cascade Screen Negative (Negative)
[2023-08-29 11:58] LABS: PSA, Free 0.26 ng/mL
== END 2023-08-26 12:25 | disposition home or self-care (01) ==
LOC: ANHLAB 12:27
PROVIDERS: PCP Family Medicine; Visit Provider Family Medicine
DX: E78.2 Mixed hyperlipidemia (principal); E11.9 Type 2 diabetes mellitus without complications; I10 Essential (primary) hypertension; M06.30 Rheumatoid nodule, unspecified site; N40.1 Benign prostatic hyperplasia with lower urinary tract symptoms; R97.20 Elevated prostate specific antigen [PSA]
CPT/HCPCS: 36415; 80053; 80061; 83036; 84153; 84154; 85025; 85610; 86038

== ENCOUNTER 2023-09-13 08:45 | Emergency (ER) | payer MEDICARE, OTHER, SELFPAY ==
--- NOTE | ~2023-09-13 | US_ITS ---
EXAMINATION: US soft tissue LE LT DATE: 09/13/2023 12:11 INDICATION: Left thigh pain. TECHNIQUE: Multiple grayscale and Doppler ultrasound images of the left thigh were obtained. COMPARISON: None FINDINGS: In the upper left thigh, there is a 1.6 x 0.6 x 1.3 cm hypoechoic subcutaneous mass, consis tent with hematoma. IMPRESSION: 1. Small subcutaneous hematoma in the left upper thigh. Reviewed, dictated and finalized at location A. ATING SYSTEMS SPECIALIST
--- NOTE | ~2023-09-13 | XR_ITS ---
EXAMINATION: XR hip LT 2V w AP pelvis DATE: 09/13/2023 09:47 INDICATION: Left hip pain. Fall. TECHNIQUE: An anteroposterior view of the pelvis and 2 views of left hip were obtained. COMPARISON: Pelvis and hip radiographs 02/23/2021 FINDINGS: There is lumbar dextrocurvature and moderate spondylosis. No fracture. There is moderate os teoarthritis of the hips. IMPRESSION: 1. Moderate osteoarthritis of the hips. Reviewed, dictated and finalized at location A. SHED CIGAR MAKER
--- NOTE | ~2023-09-13 | US_ITS ---
EXAMINATION: US venous doppler [facility] DATE: 09/13/2023 12:13 INDICATION: Left lower limb swelling. TECHNIQUE: Grayscale ultrasound images without and with compression and Doppler ultrasound images of the left lower extremity veins were obtained. COMPARISON: None. FINDINGS: The visualized portions of left common femoral vein, profunda (deep) femoral vein, femoral vein, popl iteal vein, peroneal veins, posterior tibial veins, and greater saphenous vein outflow are patent. IMPRESSION: 1. No deep venous thrombosis. Reviewed, dictated and finalized at location A. LE STITCHER
[2023-09-13 08:48] VITALS: BP 106/83; PULSE 76; RESP 20; TEMP 36.4; O2SAT 99
--- NOTE | 2023-09-13 10:26 | ED.EXTPRO ---
HPI - Extremity Problem General Chief complaint: Extremity Problem,Nontraumatic Stated complaint: leg pain Time Seen by Provider: 09/13/23 08:54 History of Present Illness HPI Narrative: Patient had fallen about a week ago, landing on his left lateral thigh, did have quite a bit of swelling and bruising, he was still able to continue on his usual including his long bike rides, however over the last few days he has noticed the swelling has increased and he seems to have more pain. Related Data Home Medications Medication Instructions Recorded Confirmed warfarin 4 mg tablet 8 mg PO DAILY 07/15/22 09/05/23 multivitamin 1 tablet PO DAILY 10/01/22 09/05/23 metoprolol succinate 25 mg 25 mg PO DAILY 01/08/23 09/05/23 tablet,extended release 24 hr (Toprol XL) Allergies Allergy/AdvReac Type Severity Reaction Status Date / Time No Known Allergies Allergy Verified 09/13/23 08:51 Review of Systems Review of Systems: CONST: No fever. HEENT: No sore throat C/V: No chest pain RESP: No cough GI: No abd pain : No dysuria. M/S: Swelling/pain to L lateral thigh. SKIN: Bruising LLE NEURO: [No headache or focal numbness or weakness] PSYCH: [No depression] PENDING SALE TO [facility] Past Medical History Medical History Anticoagulated by anticoagulation treatment Arthritis (Unknown) Atrial fibrillation once after MVR Coronary artery disease Degenerative arthritis of cervical spine (~1998) Hematuria History of nephrolithiasis HLD (hyperlipidemia) HTN (hypertension) Mitral valve prolapse Obstruction of left ureteropelvic junction due to stone Pacemaker Surgical History Surgical History History of cataract extraction (~12/2014) History of cataract extraction (~03/2015) History of detached retina repair (~02/2006) History of detached retina repair (~01/1996) History of total left knee replacement (~12/2007) History of total right knee replacement (~12/2009) Hx of mitral valve replacement (~08/13/17) S/P mitral valve repair Total knee replacement status Family History Family History Mother Cancer lung cancer Father Lung cancer Social History Social History (Updated 09/05/23 @ 07:30 by Antoinette Saleem) Social History: Smoking status: Current every day smoker Tobacco type: cigars Second hand tobacco smoke exposure: No Additional smoking assessment comments: SMOKES CIGARS OCC (average 3 a week) Alcohol intake: current Drinks per week: 4 Alcohol use details: wine Substance use: never Substance use type: does not use Lack of Transportation: No Lack of Food: Never True Current Housing: I Have Housing Concerned About Future Housing: No Difficulty Paying Gas/Electric Bills: No Difficulty Paying for Meds: No Currently Unemployed: YES Education: Associate Degree Difficulty w/ Childcare or Family Care: No Living arrangements: with family Occupation/Education: retired Gender identity (if verbalized by the patient): Male Sexual Orientation (if Verbalized by the Patient): Straight or Heterosexual Spiritual care concerns: No Exam Narrative: EXAMINATION OF ORGAN SYSTEMS/BODY AREAS: Constitutional: Vital signs per nursing GENERAL:[No acute distress, non-toxic appearing.] HEAD: Normal with no signs of head trauma. EYES: EOMI, conjunctiva normal ENT: Hearing grossly intact LUNGS: Nonlabored breathing. HEART: [Regular rate and rhythm] ABD: No distension EXT: Normal range of motion; bruising/induration left lateral thigh SKIN: Bruising left lateral thigh NEURO: [Alert and oriented x 3. No gross focal sensory or strength deficits.] PSYCH: Normal affect Course Vital Signs Vital signs: Vital Signs Temperature 97.6 F 09/13/23 08:48 Pulse Rate 76 09/13/23 08:48 Respiratory Rate 20 1
[2023-09-13 11:18] VITALS: BP 145/82; PULSE 119; RESP 16; O2SAT 96
[2023-09-13 12:34] VITALS: BP 147/74; PULSE 74; RESP 16; O2SAT 99
== END 2023-09-13 12:39 | disposition home or self-care (01) ==
PROVIDERS: Emergency Provider Emergency Medicine; PCP Family Medicine
DX: S70.12XA Contusion of left thigh, initial encounter (principal); I25.10 Atherosclerotic heart disease of native coronary artery without angina pectoris; I10 Essential (primary) hypertension; I34.1 Nonrheumatic mitral (valve) prolapse; E78.5 Hyperlipidemia, unspecified; M16.0 Bilateral primary osteoarthritis of hip; M47.812 Spondylosis without myelopathy or radiculopathy, cervical region; F17.290 Nicotine dependence, other tobacco product, uncomplicated; Z95.2 Presence of prosthetic heart valve; Z95.0 Presence of cardiac pacemaker; Z96.653 Presence of artificial knee joint, bilateral; Z87.442 Personal history of urinary calculi; Z98.42 Cataract extraction status, left eye; Z98.41 Cataract extraction status, right eye; Z79.01 Long term (current) use of anticoagulants; W19.XXXA Unspecified fall, initial encounter
CPT/HCPCS: 73502; 76882; 93971; 99284

== ENCOUNTER 2023-09-18 13:20 | Outpatient (RCR) | payer MEDICARE, OTHER, SELFPAY ==
[2023-06-20 13:11] LABS: INR 2.6; Prothrombin Time 30.2 Seconds (11.1-14.7)
[2023-07-15 11:31] LABS: INR 2.4; Prothrombin Time 27.8 Seconds (11.1-14.7)
[2023-08-26 13:04] LABS: INR 2.7; Prothrombin Time 30.7 Seconds (11.1-14.7)
[2023-09-18 14:06] LABS: INR 3.3; Prothrombin Time 36.1 Seconds (11.1-14.7)
== END 2023-09-18 23:59 | disposition home or self-care (01) ==
LOC: ANHLAB 13:20
PROVIDERS: PCP Family Medicine; Visit Provider Internal Medicine Cardiovascular Disease
DX: I48.91 Unspecified atrial fibrillation (principal)
CPT/HCPCS: 36415; 85610

== ENCOUNTER 2023-12-27 09:35 | Outpatient (RCR) | payer MEDICARE, OTHER, SELFPAY ==
[2023-10-23 16:29] LABS: INR 2.4; Prothrombin Time 27.7 Seconds (11.1-14.7)
[2023-11-27 11:56] LABS: INR 2.9; Prothrombin Time 32.6 Seconds (11.1-14.7)
[2023-12-27 10:00] LABS: INR 2.9; Prothrombin Time 32.4 Seconds (11.1-14.7)
== END 2024-01-21 23:59 | disposition home or self-care (01) ==
LOC: ANHLAB 09:35
PROVIDERS: PCP Family Medicine; Visit Provider Internal Medicine Cardiovascular Disease
DX: I48.91 Unspecified atrial fibrillation (principal)
CPT/HCPCS: 36415; 85610

== ENCOUNTER 2024-03-02 07:41 | Outpatient (CLI) | payer MEDICARE, OTHER, SELFPAY ==
[2024-03-02 08:06] LABS: Basophils Absolute Auto 0.1 K/mm3 (0.0-0.1); Basophils Percent Auto 1.2 % (0.2-1.2); Eosinophils Absolute Auto 0.2 K/mm3 (0-0.3); Eosinophils Percent Auto 4.7 % (0-4.4); Hematocrit 42.7 % (42.0-52.0); Hemoglobin 13.7 g/dL (14.0-18.0); Immature Granulocyte Absolute 0.01 K/mm3 (0.00-0.031); Immature Granulocyte Percent A 0.2 % (0-0.5); Lymphocytes Absolute Auto 1.25 K/mm3 (0.9-3.2); Mean Corpuscular HGB Conc 32.1 g/dl (32-36); Mean Corpuscular Hemoglobin 32.6 pg (26-34); Mean Corpuscular Volume 101.7 fl (80-100); Mean Platelet Volume 9.1 fl (7.4-10.4); Monocytes Absolute Auto 0.5 K/mm3 (0.1-0.6); Monocytes Percent Auto 11.7 % (2.6-8.5); Neutrophils Absolute Auto 2.1 K/mm3 (1.3-6.7); Neutrophils Percent Auto 51.2 % (45.5-73.1); Platelet Count Result 158 k/mm3 (150-375); Red Cell Distribution Width 13.4 % (11.5-14.5)
[2024-03-02 08:14] LABS: Alanine Aminotransferase 22 U/L (6-50); Albumin Level 4.2 g/dL (3.5-5.1); Alkaline Phosphatase 69 U/L (38-126); Anion Gap 4 mmol/L (4-12); Aspartate Amino Transferase 28 U/L (17-59); Bilirubin,Total 1.6 mg/dL (0.2-1.3); Blood Urea Nitrogen 28 mg/dL (9-20); Calcium 9.7 mg/dL (8.4-10.2); Carbon Dioxide 31 mmol/L (22-30); Chloride 107 mmol/L (98-107); Cholesterol 171 mg/dL (0-200); Estimated Glomerular Filt Rate > 60; Glucose 136 mg/dL (65-110); HDL Direct 56 mg/dL; Potassium 4.1 mmol/L (3.4-5.0); Sodium 142 mmol/L (137-145); Triglycerides 126 mg/dL (<150)
[2024-03-02 08:25] LABS: LDL Cholesterol Direct 93 mg/dL
[2024-03-02 09:09] LABS: Hemoglobin A1C 6.3 % (<5.7)
== END 2024-03-02 07:42 | disposition home or self-care (01) ==
LOC: ANHLAB 07:42
PROVIDERS: PCP Family Medicine; Visit Provider Physician Assistant
DX: D72.819 Decreased white blood cell count, unspecified (principal); I42.8 Other cardiomyopathies; R73.09 Other abnormal glucose; Z13.220 Encounter for screening for lipoid disorders; R79.89 Other specified abnormal findings of blood chemistry; N20.0 Calculus of kidney
CPT/HCPCS: 36415; 80053; 80061; 83036; 85025

== ENCOUNTER 2024-03-30 07:08 | Outpatient (RCR) | payer MEDICARE, OTHER, SELFPAY ==
[2024-01-23 11:58] LABS: INR 2.5; Prothrombin Time 28.7 Seconds (11.1-14.7)
[2024-02-25 10:34] LABS: INR 3.2; Prothrombin Time 35.1 Seconds (11.1-14.7)
[2024-03-30 07:40] LABS: INR 2.9; Prothrombin Time 32.5 Seconds (11.1-14.7)
== END 2024-04-22 23:59 | disposition home or self-care (01) ==
LOC: ANHLAB 07:08
PROVIDERS: PCP Family Medicine; Visit Provider Internal Medicine Cardiovascular Disease
DX: I48.91 Unspecified atrial fibrillation (principal)
CPT/HCPCS: 36415; 85610

== ENCOUNTER 2024-06-28 10:14 | Outpatient (RCR) | payer MEDICARE, OTHER, SELFPAY ==
[2024-04-29 13:47] LABS: INR 2.8; Prothrombin Time 29.8 Seconds (11.1-14.7)
[2024-05-27 12:05] LABS: INR 2.7; Prothrombin Time 29.3 Seconds (11.1-14.7)
[2024-06-28 11:03] LABS: INR 2.8
== END 2024-07-28 23:59 | disposition home or self-care (01) ==
LOC: ANHLAB 10:14
PROVIDERS: PCP Family Medicine; Visit Provider Internal Medicine Cardiovascular Disease
DX: I48.91 Unspecified atrial fibrillation (principal)
CPT/HCPCS: 36415; 85610

== ENCOUNTER 2024-07-06 13:28 | Outpatient (CLI) | payer MEDICARE, OTHER, SELFPAY ==
--- NOTE | ~2024-07-06 | XR_ITS ---
EXAMINATION: XR abdomen/kub 1V DATE: 07/06/2024 13:42 INDICATION: Kidney stones. TECHNIQUE: A supine view of the abdomen on 2 radiographs was obtained. COMPARISON: Abdomen radiographs 07/02/2023, CT abdomen and pelvis 05/20/2021 FINDINGS: There are no dilated loops of bowel. There are phleboliths in the pelvis. There are approxi mately 5 stones in left kidney measuring up to 4 mm. IMPRESSION: 1. Left kidney stones. Reviewed, dictated and finalized at location A. IMPRESSION: 1. Left kidney stones.
== END 2024-07-06 13:29 | disposition home or self-care (01) ==
LOC: ANHIMG 13:33
PROVIDERS: PCP Family Medicine; Visit Provider Urology
DX: N20.0 Calculus of kidney (principal)
CPT/HCPCS: 74018

== ENCOUNTER 2024-09-14 14:25 | Outpatient (CLI) | payer MEDICARE, OTHER, SELFPAY ==
[2024-09-14 15:18] LABS: Alanine Aminotransferase 21 U/L (6-50); Albumin Level 3.7 g/dL (3.5-5.1); Alkaline Phosphatase 82 U/L (38-126); Anion Gap 2 mmol/L (4-12); Aspartate Amino Transferase 31 U/L (17-59); Bilirubin,Total 0.8 mg/dL (0.2-1.3); Blood Urea Nitrogen 26 mg/dL (9-20); Carbon Dioxide 35 mmol/L (22-30); Chloride 105 mmol/L (98-107); Estimated Glomerular Filt Rate > 60; Glucose 125 mg/dL (65-110); Potassium 4.2 mmol/L (3.4-5.0); Sodium 142 mmol/L (137-145)
== END 2024-09-14 14:26 | disposition home or self-care (01) ==
PROVIDERS: PCP Family Medicine; Visit Provider Student in an Organized Health Care Education/Training Program
DX: N20.0 Calculus of kidney (principal); R79.89 Other specified abnormal findings of blood chemistry
CPT/HCPCS: 36415; 80053

== ENCOUNTER 2024-09-28 10:13 | Outpatient (RCR) | payer MEDICARE, OTHER, SELFPAY ==
[2024-07-29 13:17] LABS: INR 2.9; Prothrombin Time 30.9 Seconds (11.1-14.7)
[2024-08-30 14:11] LABS: Prothrombin Time 31.7 Seconds (11.1-14.7)
[2024-09-28 11:13] LABS: INR 2.3; Prothrombin Time 25.4 Seconds (11.1-14.7)
== END 2024-10-27 23:59 | disposition home or self-care (01) ==
LOC: ANHLAB 10:13
PROVIDERS: PCP Family Medicine; Visit Provider Internal Medicine Cardiovascular Disease
DX: I48.91 Unspecified atrial fibrillation (principal)
CPT/HCPCS: 36415; 85610

== ENCOUNTER 2024-12-09 12:36 | Outpatient (CLI) | payer MEDICARE, OTHER, SELFPAY ==
--- NOTE | ~2024-12-09 | XR_ITS ---
Exam: Abdomen 1V HISTORY: kidney stone COMPARISON: 07/06/2024 TECHNIQUE: Supine images of the abdomen FINDINGS: Bowel gas pattern is non-obstructive and nonspecific. Fecal stasis within the right colon precluding adequate evaluation of the right kidney. There is no free air or deep sulci. At least 5 stones projecting over the left kidney, the largest measuring 5.2 mm. Lung bases are unremarkable. Bones and soft tissues are unremarkable. IMPRESSION: Nonspecific, nonobstructive bowel gas pattern. Left-sided renal calculi Reviewed, dictated and finalized at location A. [facility]
--- OUTSIDE RECORDS SUMMARY | 2024-12-09 12:41 | XMS_ITS | Clinical Summary ---
Author Organization 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 Gender Identity Not on file Sexual Orientation Not on file Plan of Treatment Health Maintenance Due Date Last Done Comments Hepatitis C Virus (HCV) Screening 1945 TdaP Immunization 1945 Zoster Immunization (3 of 3) 12/02/2019 10/07/2019, 04/23/2017 Respiratory Syncytial Virus (RSV) Immunization (Adult) (1 - 1-dose 75+ series) 2021 Influenza Immunization (#1) 07/04/202408/04, 08/01/2019, 09/19/2018, Additional history exists SARS-COV-2 Immunization ( season) 2024 01/21/2021, 12/31/2020 Pneumococcal Immunization (50+ years) Completed 12/20/2016, 12/11/2015 Pneumococcal Immunization Combined Discontinued 12/20/2016, 12/11/2015 Hepatitis B Immunization Aged Out No longer eligible based on patient's age to complete this topic Meningococcal Immunization (ACWY) Aged Out No longer eligible based on patient's age to complete this topic Rotavirus Immunization Aged Out No lo nger eligible based on patient's age to complete this topic
--- OUTSIDE RECORDS SUMMARY | 2024-12-09 12:41 | XMS_ITS | Patient Health Summary ---
Author Organization [facility] Address [address] [place] [address] Care Team Providers Care Engraver Block Name Role Phone Zoraida Mancia MD Primary Care Provider Aris lynn Note from [facility],non-owned Affiliates and Associated Physician Practices is amultiple site organization consisting of ambulatory clinics and hospital sitesin [place], [place], [place] and [place]. This disclosure is being madepursuant to the Care Everywhere program and may not contain all information available regarding this patient. Last updated 18.[facility] It[employer] Allergies No known active allergies Medications * Be aware that medications may not be up to date on this document. Alwaysverify current medications with the patient. * warfarin (COUMADIN) 1 MG tablet Take 6-8 mg by mouth every evening Pt alternates 6mg and 8mg every other day Reasons: Atrial Fibrillation * multivitamin daily tablet Take 1 tablet by mouth daily with food Reasons: Nutritional Support * oxyCODONE-acetaminophen (PERCOCET) 5-325 MG tablet(Started 02/03/2022) Take 1 (one) tablet by mouth every 4 hours as needed Active Problems Problem Noted Date Diagnosed Date Parotid mass 02/01/2022 Immunizations * Covid Pfizer primary monovalent 12+ yr 0.3mL Purple cap(Given 08/16/2021, 01/21/2021, 12/31/2020) * INFLUENZA VACCINE(Given 08/16/2021) * PNEUMOCOCCAL PPSV23(Given 11/03/2017) * TDAP (7yrs+)(Given 08/05/2019) * VARICELLA(Given 10/07/2019, 08/05/2019) Social History Tobacco Use Types Packs/Day Years Used Date Smoking Tobacco: Every Day Cigarettes Cigars Smokeless Tobacco: Never Tobacco Cessation:Ready to Q uit: No; Counseling Given: Yes Alcohol Use Standard Drinks/Week Comments Yes 0 (1 standard drink = 0.6 oz pur e alcohol) AUDIT-C Answer Date Recorded Q1: How often do you have a drink containing alc ohol? 2-3 times a week 02/02/2022 Q2: How many drinks containi ng alcohol do you have on a typical day when you are drinking? 1 or 2 02/02/2022 Q3: How often do you have si x or more drinks on one occasion? Never 02/02/2022 Sex and Gender Information Value Date Recorded Sex Assigned at Male 02/18/2022 4:44 PM CDT Gender Identity Male 02/18/2022 4:44 PM CDT Sexual Orientation Straight 02/18/2022 4: 44 PM CDT Last Filed Vital Signs Vital Sign Reading Time Taken Comments Blood Pressure 126/67 02/03/2022 10:56 AM CDT Pulse 72 02/03/2022 10:56 AM CDT Temperature 36.5 C (97.7 F) 02/03/2022 10:56 AM CDT Respiratory Rate 16 02/03/2022 10:56 AM CDT Oxygen Saturation 97% 02/03/2022 10:56 AM CDT Inhaled Oxygen Concentration - - Weight 83.5 kg (184 lb 1.6 oz) 02/02/2022 12:37 AM CDT Height 180.3 cm (5' 11 ) 02/02/2022 12:37 AM CDT Body Mass Index 25.68 02/02/2022 12:37 AM CDT Procedures * CYTOLOGY NON-ANALYSIS OR RESEARCH SAFETY INSPECTOR PANEL (STL)(Performed 02/21/2022) Performed for Left facial swelling, Parotid mass * US FINE NEEDLE ASPIRATION(Performed 02/21/2022) Performed for Left facial swelling * FINE NEEDLE ASPIRATION (STL)(Performed 02/21/2022) Performed for Parotid mass * CULTURE FUNGUS OTHER+FUNGUS SMEAR(Performed 02/21/2022) Performed for Left facial swelling * CULTURE TISSUE+GRAM STAIN(Performed 02/21/2022) Performed for Left facial swelling * CULTURE ANAEROBE(Performed 02/21/2022) Performed for Left facial swelling * PT-INR(Performed 02/03/2022) * COMPREHENSIVE METABOLIC PANEL(Performed 02/03/2022) * CBC W/O DIFFERENTIAL(Performed 02/03/2022) * PT-INR(Performed 02/02/2022) * LACTIC ACID BLOOD(Performed 02/02/2022) * COMPREHENSIVE METABOLIC PANEL(Performed 02/02/2022) * CBC W AUTO DIFFERENTIAL(Performed 02/02/2022) Results * CYTOLOGY NON-ANALYSIS OR RESEARCH SAFETY INSPECTOR PANEL (STL) (02/21/2022 12:06 PM CDT) Case Report Cytology Non Head Usher Report Case: [id number] Authorizing Provider: Michelle Abraham MD Collected: 02/21/2022 12:06 PM Ordering Location: [facility] Received: 02/21/2022 12:55 PM Pathologist: Daljit Morales MD Specimen: Cyst Fluid, LEFT parotid cystic/solid mass 02/22/2022 2:49 PM CDT [facility] Final Diagnosis Parotid, left, m ass , ultrasound-guided needle aspiration: 1. Less than adequate for evaluation 2. Excess obscuring inflammation and necrotic debris. 02/22/2022 2:49 PM CDT [facility] Clinical History Left parotid inflamed mass. 02/22/2022 2:49 PM CDT [facility] Gross Description 3 mL of cloudy pink fluid are received from which 1 thin prep and cell block are prepared for cytologic evaluation. 02/22/2022 2:49 PM CDT [facility] Microscopic Description Scant degenerate epithelioid cells are present in a background of excess necrotic debris and polymorphous inflammatory cells. See [id number] for additional information. 02/22/2022 2:49 PM CDT [facility] Disclaimer All histochemical and/or immunohistochemical results are interpreted with controls that demonstrate appropriate staining reactions before reporting results. Note on use of immunocytochemistry reagents: This test was developed and its performance characteristic determined by [facility], Department of Laboratory Medicine. It has not been cleared or approved by the U.S. Food and Drug Administration (FDA). The FDA has determined that such clearance or approval is not necessary. The test is used for clinical purpose. It should not be regarded as investigational or for research. This laboratory is certified to perform high complexity testing. The performance characteristics of the IHC/MARTÍNEZ assays have been validated on formalin-fixed paraffin embedded tissues only. The assays have not been validated on decalcified tissues. Results should be interpreted with caution. 02/22/2022 2:49 PM CDT [facility] Embedded Images 02/22/2022 2:49 PM CDT [facility] Pathology/Cytolo gy CYST FLUID SPECIMEN / Unknown Collection / Unknown 02/21/2022 12:06 PM CDT 02/21/2022 12:55 PM CDT Michelle Abraham MD LAB - PATHOLOGY/C YTOLOGY ORDERABLES Performing Organization Address City/State/[facility] Co de Phone Number [facility] [address] [place] [address] * US FINE NEEDLE ASPIRATION (02/21/2022 12:04 PM CDT) Anatomical Region Laterality Modality Ultrasound 03/17/2022 11:2 9 PM CDT Narrative 03/17/2022 11:39 PM CDT History: Indeterminate?left parotid?cystic?mass?which decreased in size after antibiotic course.? Operators: 1. Dr. Moreno, Attending Physician Anesthesia: 1. Local anesthesia - 5 ml of 1% lidocaine Procedure: 1. Limited US of the Left parotid region. 2. US-guided fine needle aspiration of Left parotid solid and cystic lesion. Procedure in detail: The procedure, risks, and possible complications were explained to the patient in detail, and informed consent was obtained. The patient was placed in a upright position on the US table limited US of the parotid region showed mixed cystic and solid mass within parotid gland without internal vascularity. A percutaneous entry site was marked on the skin to access the lesion. The marked site and skin around the region was prepped and draped in sterile fashion. Local anesthesia was provided with 1% Lidocaine. A 22 gauge chiba needle was advanced in stages under US guidance into the cystic portion of the mass and 5cc beige fluid aspirated. With the needle tip at the edge of the lesion, fine needle aspiration of the small solid component was performed with 25G needles. A total of 5 passes were made. The samples were deemed adequate by the on-site cytopathologist. Post-procedure limited non-contrast CT showed no evidence of immediate complications such as large hemorrhage. The patient tolerated the procedure well and was transferred to the holding area in stable condition. There were no immediate complications associated with the procedure. Impression: CT-guided fine needle aspiration of left parotid mixed cystic and solid mass, as detailed above. The pathology report is pending at the time of this dictation. Dr. Josh Sunshine, was present and performed/supervised the entire procedure. *Reading Radiologist: Tracy Moreno on 03/17/2022 at 11:39 PM Procedure Note Tracy Moreno MD - 03/17/2022 History: Indeterminate?left parotid?cystic?mass?which decreased in size after antibiotic course.? Operators: 1. Dr. Moreno, Attending Physician Anesthesia: 1. Local anesthesia - 5 ml of 1% lidocaine Procedure: 1. Limited US of the Left parotid region. 2. US-guided fine needle aspiration of Left parotid solid and cystic lesion. Procedure in detail: The procedure, risks, and possible complications were explained to the patient in detail, and informed consent was obtained. The patient was placed in a upright position on the US table limited US of the parotid region showed mixed cystic and solid mass within parotid gland without internal vascularity. A percutaneous entry site was marked on the skin to access the lesion. The marked site and skin around the region was prepped and draped in sterile fashion. Local anesthesia was provided with 1% Lidocaine. A 22 gauge chiba needle was advanced in stages under US guidance into the cystic portion of the mass and 5cc beige fluid aspirated. With the needle tip at the edge of the lesion, fine needle aspiration of the small solid component was performed with 25G needles. A total of 5 passes were made. The samples were deemed adequate by the on-site cytopathologist. Post-procedure limited non-contrast CT showed no evidence of immediate complications such as large hemorrhage. The patient tolerated the procedure well and was transferred to the holding area in stable condition. There were no immediate complications associated with the procedure. Impression: CT-guided fine needle aspiration of left parotid mixed cystic and solid mass, as detailed above. The pathology report is pending at the time of this dictation. Dr. Josh Sunshine, was present and performed/supervised the entire procedure. *Reading Radiologist: Tracy Moreno on 03/17/2022 at 11:39 PM Michelle Abraham MD US ORDERABLES * FINE NEEDLE ASPIRATION (STL) (02/21/2022 11:25 AM CDT) Case Report Fine Needle Aspiration Report Case: [id number] Authorizing Provider: Michelle Abraham MD Collected: 02/21/2022 11:25 AM Ordering Location: [facility] Received: 02/21/2022 01:33 PM Pathologist: Daljit Morales MD Specimen: Neck, Parotid 02/22/2022 2:57 PM CDT [facility] Final Diagnosis Parotid, left, ultrasound-guided fine-needle aspiration: 1. Satisfactory for evaluation 2. Prominent polymorphous inflammatory cell infiltrate with minor component of epithelial cells present (see microscopic) 02/22/2022 2:57 PM CDT [facility] Clinical History 76-year-old man recently noticed an enlarging nodule in his left cheek that a couple shaving. Evaluation by CT scan showed, I mpression: Necrotic left parotid mass, extensive parotid and superficial inflammation. Consider right parotitis, parotid gland cancer, necrotic lymph node, abscess. Evaluation by ENT identified a nontender left parotid mass and favored inflamed Warthin's tumor. 02/22/2022 2:57 PM CDT [facility] Gross Description From 3 ultrasound-guided fine needle aspiration passes of a left parotid mass 4 smears (2 stained with Papanicolaou and 2 stained with Diff-Quik) are prepared for cytologic evaluation. The 3rd pass and rinses of the 1st 2 passes are submitted for a cell block. Parotid, left, m ass , ultrasound-guided fine needle aspiration, rapid on-site evaluation (ROSCE): 1. Satisfactory for evaluation 2. Consistent with a Warthin's tumor 3. Diagnosis given to Dr. Moreno by Dr. Morales on 02/21/2022 at 11:22 AM 02/22/2022 2:57 PM CDT [facility] Microscopic Description Review of the cell block, the Pap stained smears and the diff Quik stained smears does not substantiate the ERICK impression that the mass is consistent with a Warthin's tumor. The most prominent cells are plasma cells, macrophages, lymphocytes, and neutrophils. In the background there are some larger plump poorly preserved epithelial cells. Many degenerate individual cells are also present in the cell block which lacks any intact tissue fragments from the wall of the cystic mass, precluding definitive diagnosis and exclusion of malignant diagnoses. Clinical correlation is suggested. Re-biopsy of the wall of the cystic mass or excision of the cystic mass might provide a more definitive diagnosis. 02/22/2022 2:57 PM CDT [facility] Disclaimer All histochemical and/or immunohistochemical results are interpreted with controls that demonstrate appropriate staining reactions before reporting results. Note on use of immunocytochemistry reagents: This test was developed and its performance characteristic determined by [facility], Department of Laboratory Medicine. It has not been cleared or approved by the U.S. Food and Drug Administration (FDA). The FDA has determined that such clearance or approval is not necessary. The test is used for clinical purpose. It should not be regarded as investigational or for research. This laboratory is certified to perform high complexity testing. The performance characteristics of the IHC/MARTÍNEZ assays have been validated on formalin-fixed paraffin embedded tissues only. The assays have not been validated on decalcified tissues. Results should be interpreted with caution. 02/22/2022 2:57 PM CDT [facility] Embedded Images 02/22/2022 2:57 PM CDT [facility] Pathology/Cytolo gy ENTIRE NECK / Unknown 02/21/2022 11:25 AM CDT 02/21/2022 1:33 PM CDT Michelle Abraham MD LAB - PATHOLOGY/C YTOLOGY ORDERABLES [facility] [address] [place] [address] * CULTURE FUNGUS OTHER+FUNGUS SMEAR (02/21/2022 11:10 AM CDT) Culture No fungus isolated SUHAS 03/18/2022 10:27 AM CDT [facility] Fungus Stain No yeast or hyphae seen 03/18/2022 10:27 AM CDT [facility] Microbiology MASS OF PAROTID GLAND / Unknown Collection / Unknown 02/21/2022 11:10 AM CDT 02/21/2022 12:29 PM CDT Michelle Abraham MD LAB - MICROBIOLOG Y ORDERABLES [facility] [address] [place] [address], [facility] [phone] * (ABNORMAL) CULTURE TISSUE+GRAM STAIN (02/21/2022 11:10 AM CDT) Culture No growth SUHAS 02/25/2022 11:49 AM CDT [facility] Gram Stain Light Polymorphonuclear cells(AA) 02/25/2022 11:49 AM CDT [facility] Gram Stain Light Gram-positive cocci(AA) 02/25/2022 11:49 AM CDT [facility] Microbiology MASS OF PAROTID GLAND / Unknown Collection / Unknown 02/21/2022 11:10 AM CDT 02/21/2022 12:29 PM CDT Narrative [facility] - 02/25/2022 11:49 AM CDT Organisms seen on initial Gram stain may be anaerobic or not viable for aerobic growth. Michelle Abraham MD LAB - MICROBIOLOG Y ORDERABLES Performing Organization Address City/[facility]/ZIP Co de Phone Number [facility] [address] [place] [address], [facility] [phone] * CULTURE ANAEROBE (02/21/2022 11:10 AM CDT) Culture No anaerobic organisms isolated SUHAS 02/27/2022 9:50 AM CDT [facility] Microbiology MASS OF PAROTID GLAND / Unknown Collection / Unknown 02/21/2022 11:10 AM CDT 02/21/2022 12:29 PM CDT Michelle Abraham MD LAB - MICROBIOLOG Y ORDERABLES [facility] [address] [place] [address] [phone] * (ABNORMAL) PT-INR (02/03/2022 2:47 AM CDT) Only the most recent of2 resultswithin the time period is included. [facility] PT 19.4(H) 12.1 - 14.8 sec 02/03/2022 4:25 AM CDT [facility] INR 1.6(H) 0.9 - 1.1 02/03/2022 4:25 AM CDT [facility] Blood BLOOD SPECIMEN / Unknown Lab Venipuncture / Unknown 02/03/2022 2:47 AM CDT 02/03/2022 3:[address] [facility] - 02/03/2022 4:25 AM CDT Conventional Warfarin Anticoagulant Therapy: INR Reference Range: 2.0-3.0 Intensive Warfarin Anticoagulant Therapy: INR Reference Range: 2.5-3.5 Guero [place] DO LAB - COAGULATION OR DERABLES Performing Organization Address [facility]/State/[facility] Co de Phone Number [facility] [address] [place] [address] * (ABNORMAL) CBC W/O DIFFERENTIAL (02/03/2022 2:47 AM CDT) [facility] WBC 10.5 4.4 - 10.7 x10E9/L 02/03/2022 3:54 AM CDT [facility] RBC 3.86 3.80 - 5.40 x10E12/L 02/03/2022 3:54 AM CDT [facility] Hemoglobin 12.6 12.0 - 17.6 gm/dL 02/03/2022 3:54 AM CDT [facility] Hematocrit 38.4 35.2 - 51.7 % 02/03/2022 3:54 AM CDT [facility] MCV 99.5(H) 80.7 - 98.3 fl 02/03/2022 3:54 AM CDT [facility] MCH 32.6 26.7 - 34.0 pg 02/03/2022 3:54 AM CDT [facility] MCHC 32.8 30.8 - 35.9 gm/dL 02/03/2022 3:54 AM CDT [facility] Platelet Count 181 153 - 416 x10E9/L 02/03/2022 3:54 AM CDT [facility] RDW-CV 12.7 12.1 - 14.9 % 02/03/2022 3:54 AM CDT [facility] MPV 9.3(L) 9.4 - 12.9 fl 02/03/2022 3:54 AM CDT [facility] Blood BLOOD SPECIMEN / Unknown Lab Venipuncture / Unknown 02/03/2022 2:47 AM CDT 02/03/2022 3:37 AM CDT Gureo [place] DO LAB - HEMATOLOGY ORD ERABLES [facility] [address] [place] [address] * (ABNORMAL) COMPREHENSIVE METABOLIC PANEL (02/03/2022 2:47 AM CDT) Only the most recent of2 resultswithin the time period is included. Glucose 224(H) 70 - 105 mg/dL 02/03/2022 4:21 AM [facility] Sodium 140 136 - 145 mmol/L 02/03/2022 4:21 AM [facility] Potassium 4.5 3.5 - 5.1 mmol/L 02/03/2022 4:21 AM [facility] Chloride 106 98 - 107 mmol/L 02/03/2022 4:21 AM [facility] CO2 25 23 - 31 mmol/L 02/03/2022 4:21 AM [facility] Calcium 9.1 8.4 - 10.4 mg/dL 02/03/2022 4:21 AM [facility] Anion Gap 9 8 - 18 mmol/L 02/03/2022 4:21 AM [facility] BUN 26(H) 8.4 - 25.7 mg/dL 02/03/2022 4:[facility] Creatinine 0.98 0.72 - 1.25 mg/dL 02/03/2022 4:21 AM [facility] Alkaline Phosphatase 72 40 - 150 U/L 02/03/2022 4:21 AM CDT [facility] ALT 12 0 - 61 U/L 02/03/2022 4:21 AM CDT [facility] AST 14 5 - 34 U/L 02/03/2022 4:21 AM CDT [facility] Protein Total 6.9 6.4 - 8.3 gm/dL 02/03/2022 4:21 AM CDT [facility] Albumin 3.5 3.2 - 4.6 gm/dL 02/03/2022 4:21 AM CDT [facility] Bilirubin Total 2.0(H) 0.2 - 1.2 mg/dL 02/03/2022 4:21 AM CDT [facility] eGFR by CKD-EPI 80(L) >=90 mL/min/1.7 3 m2 02/03/2022 4:21 AM CDT [facility] Blood BLOOD SPECIMEN / Unknown Lab Venipuncture / Unknown 02/03/2022 2:47 AM CDT 02/03/2022 3:[address] [facility] - 02/03/2022 4:21 AM CDT eGFR result was calculated using the updated CKD-EPI Creatinine Equations (2020). Prior to go live 2021 the eGFR was calculated using the MDRD calculation. Please note Reference Range change. Guero [place] DO LAB - CHEMISTRY YECENIA RÍOS [facility] [address] [place] [address] * (ABNORMAL) CBC W AUTO DIFFERENTIAL (02/02/2022 5:39 AM CDT) WBC 9.2 4.4 - 10.7 x10E9/L 02/02/2022 6:00 AM CDT [facility] WBC Corrected 02/02/2022 6:00 AM CDT [facility] RBC 3.93 3.80 - 5.40 x10E12/L 02/02/2022 6:00 AM CDT [facility] Hemoglobin 12.7 12.0 - 17.6 gm/dL 02/02/2022 6:00 AM CDT [facility] Hematocrit 37.6 35.2 - 51.7 % 02/02/2022 6:00 AM [facility] MCV 95.7 80.7 - 98.3 fl 02/02/2022 6:00 AM [facility] MCH 32.3 26.7 - 34.0 pg 02/02/2022 6:00 AM [facility] MCHC 33.8 30.8 - 35.9 gm/dL 02/02/2022 6:00 AM [facility] Platelet Count 167 153 - 416 x10E9/L 02/02/2022 6:00 AM [facility] RDW-CV 12.9 12.1 - 14.9 % 02/02/2022 6:00 AM [facility] MPV 8.9(L) 9.4 - 12.9 fl 02/02/2022 6:00 AM [facility] Neutrophils % 73.7(H) 44.0 - 73.0 % 02/02/2022 6:00 AM [facility] Lymphocytes % 15.2(L) 20.0 - 43.0 % 02/02/2022 6:00 AM [facility] Monocytes % 9.7 5.0 - 13.0 % 02/02/2022 6:00 AM [facility] Eosinophils % 0.8 0.0 - 6.0 % 02/02/2022 6:00 AM [facility] Basophils % 0.4 0.0 - 2.0 % 02/02/2022 6:00 AM [facility] Immature Granulocytes 0.2 0 - 1 % 02/02/2022 6:00 AM [facility] Neutrophil Absolute 6.79 2.01 - 7.14 x10E9/L 02/02/2022 6:00 AM [facility] Lymphocytes Absolute 1.40 1.07 - 3.94 x10E9/L 02/02/2022 6:00 AM [facility] Monocytes Absolute 0.89 0.26 - 1.07 x10E9/L 02/02/2022 6:00 AM [facility] Eosinophils Absolute 0.07 0 - 0.47 x10E9/L 02/02/2022 6:00 AM [facility] Basophils Absolute 0.04 0 - 0.08 x10E9/L 02/02/2022 6:00 AM CDT [facility] Immature Granulocytes Absolute 0.02 0.00 - 0.06 x10E9/L 02/02/2022 6:00 AM CDT [facility] nRBC Auto 0 /100 WBC 02/02/2022 6:00 AM CDT [facility] Blood BLOOD SPECIMEN / Unknown Lab Venipuncture / Unknown 02/02/2022 5:39 AM CDT 02/02/2022 5:46 AM CDT Guero [place] DO LAB - HEMATOLOGY ORD ERABLES Performing Organization Address City/[facility]/ZIP Co de Phone Number [facility] [address] [place] [address] * LACTIC ACID BLOOD (02/02/2022 5:39 AM CDT) Lactic Acid 0.8 <=2 mmol/L 02/02/2022 6:15 AM CDT [facility] Blood BLOOD SPECIMEN / Unknown Lab Venipuncture / Unknown 02/02/2022 5:39 AM CDT 02/02/2022 5:47 AM CDT Guero [place] DO LAB - CHEMISTRY ORDE RABLES [facility] [address] [place], [place] [id number] Care Teams Engraver Block Relationship Specialty Start Date End Date Zoraida Mancia MD [address] [facility] [address] [place] [address] PCP - General Family Medicine 02/02/22
--- OUTSIDE RECORDS SUMMARY | 2024-12-09 12:41 | XMS_ITS | Encounter Summary ---
Author Organization [facility] Healthcare Address [address] [place] [address] Care Team Providers Care Direct Mail Manager Name Role Phone Zoraida Mancia MD Primary Care Provider Encounter Details Date Type Department Care Team (Late st Contact Info) Description 12/27/2023 Orders Only [facility] [place] Health Information Management [address] [place] [address] Scanning, Provider Social History Tobacco Use Types Packs/Day Years Used Date Smoking Tobacco: Some Days Cigars Smokeless Tobacco: Never Comments:1-2 cigars per week Alcohol Use Standard Drinks/Week Comments Yes 2 (1 standard drink = 0.6 oz pur e alcohol) 2- 3 per week AUDIT-C Answer Date Recorded Frequency of Alcohol Consumption 2-3 times a wee k 03/04/2019 Average Number of Drinks 1 or 2 019 Frequency of Binge Drinking Never 12/2018 Sex and Gender Information Value Date Recorded Sex Assigned at Not on file Legal Sex Male 1:18 PM CDT Gender Identity Male 04/27/2020 2:53 PM CDT Sexual Orientation Straight 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
--- OUTSIDE RECORDS SUMMARY | 2024-12-09 12:41 | XMS_ITS | Encounter Summary ---
Author Organization [facility] Healthcare Address [address] [place] [address] Care Team Providers Care Blacktop Spreader Name Role Phone Zoraida Mancia MD Primary Care Provider Encounter Details Date Type Department Care Team (Late st Contact Info) Description 02/25/2024 Orders Only [facility] [place] Health Information Management [address] [place] [address] Scanning, Provider Social History Tobacco Use Types Packs/Day Years Used Date Smoking Tobacco: Some Days Cigarettes Cigars Smokeless Tobacco: Never Comments:1-2 cigars per [...] Sexual Orientation Straight 09/09/2019 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
--- OUTSIDE RECORDS SUMMARY | 2024-12-09 12:41 | XMS_ITS | Encounter Summary ---
Author Organization 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 documented as of this encounter Plan of Treatment Not on file documented as of this encounter Procedures Procedure Name Priority Date/Time Associated Diagnosis Comments SCAN - LABS 05/27/2024 documented in this encounter Results * SCAN - LABS (05/27/2024) Provider Scanning Final Result documented in this encounter Visit Diagnoses Not on filedocumented in this encounter Care Teams Logging Worker Relationship Specialty Start Date End Date Zoraida Mancia MD [address] [facility] [address] [facility] [address] [place] [address] PCP - General Family Medicine 09/10/19 documented as of this encounter
--- OUTSIDE RECORDS SUMMARY | 2024-12-09 12:41 | XMS_ITS | Encounter Summary ---
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 documented as of this encounter Plan of Treatment Not on file documented as of this encounter Procedures Procedure Name Priority Date/Time Associated Diagnosis Comments SCAN - LABS 04/29/2024 documented in this encounter Results * SCAN - LABS (04/29/2024) Provider Scanning Final Result documented in this encounter Visit Diagnoses Not on filedocumented in this encounter Care Teams Bicycle Courier Relationship Specialty Start Date End Date Zoraida Mancia MD [address] [facility] [address] [facility] [address] [place] [address] PCP - General Family Medicine 09/10/19 documented as of this encounter
--- OUTSIDE RECORDS SUMMARY | 2024-12-09 12:42 | XMS_ITS | Referral Summary ---
Author Organization [facility] [employer] Address [address] [facility] [place] [address] Care Team Providers Care Wellness Specialist Name Role Phone Zoraida Mancia MD Primary Care Provider Aris lynn Source Comments [facility] [employer],non-owned Affiliates and Associated Physician Practices is amultiple site organization consisting of ambulatory clinics and hospital sitesin [place], [place], [place] and [place]. This disclosure is being madepursuant to the Care Everywhere program and may not contain all information available regarding this patient. Last updated 18.[facility] [employer] Allergies No known active allergies Medications * Be aware that medications may not be up to date on this document. Alwaysverify current medications with the patient. Medication Sig Dispensed Refills Start Date End Date Status warfarin (COUMADIN) 1 MG tabletIndications:A trial Fibrillation Take 6-8 mg by mouth every evening Pt alternates 6mg and 8mg every other day Reasons: Atrial Fibrillation Active multivitamin daily tabletIndications:N utritional Support Take 1 tablet by mouth daily with food Reasons: Nutritional Support Active oxyCODONE-acetamino phen (PERCOCET) 5-325 MG tablet Take 1 (one) tablet by mouth every 4 hours as needed 12 tablet 02/03/2022 Active Active Problems Problem Noted Date Diagnosed Date Parotid mass 02/01/2022 Immunizations Name Administration Dates Next Due Covid Bjond primary monoval ent 12+ yr 0.3mL Purple cap 08/16/2021,01/21/2021,12/31/2020 INFLUENZA VACCINE 08/16/2021 PNEUMOCOCCAL PPSV23 11/03/2017 TDAP (7yrs+) 08/05/2019 VARICELLA 10/07/2019,08/05/2019 Social History Tobacco Use Types Packs/Day Years [...] Mass Index 25.68 02/02/2022 12:37 AM CDT Functional Status Functional Status Response Date of Assess ment Is person deaf or have serious hearing difficult y? No 02/02/2022 Is person blind or have serious difficulty seein g? No 02/02/2022 Does person have serious dif ficulty walking/climbing stairs? No 02/02/2022 Does person have difficulty dressing/bathing? No 02/02/2022 Does person have difficulty doing errands alone? No 02/02/2022 Cognitive Status Response Date of Assessm ent Does person have difficulty concentrating/remembering/making decisions? No 02/02/2022 Plan of Treatment Not on file Advance Directives * Full Code (Latest Code Status on File) Date Activated Date Inactivated Comments 02/02/2022 5:06 AM 02/03/2022 1:29 PM Care Teams Wellness Specialist Relationship Specialty Start Date End Date Zoraida Mancia MD [address] [facility] [address] [place] [address] PCP - General Family Medicine 02/02/22
--- OUTSIDE RECORDS SUMMARY | 2024-12-09 12:42 | XMS_ITS | Referral Summary ---
Author Organization [facility] Address [address] [place] [address] Care Team Providers Care Bait Man Name Role Phone Zoraida Mancia MD Primary Care Provider Encounters Date Type Department Care Team Description 11/25/2024 Anticoagulation Visit [facility] Medical [facility] [address] [place] [address] [address] [place] [address] Anup Rock RN Atrial fibrillation, unspecified type (HCC) (Primary Dx) 11/01/2024 Anticoagulation Visit [facility] [address] [place] [address] [address] [place] [address] Anup Rock, RN Atrial fibrillation, unspecified type (HCC) (Primary Dx) 10/13/2024 11:30 AM GRADUATE FELLOW Ancillary Procedure [facility] [address] [place] [address] [address] [place] [phone] PVC's (premature ventricular contractions) 10/13/2024 11:00 AM GRADUATE FELLOW Office Visit [facility] Cardiology [address] [place] [address] Medical Office Building [address] [place] [address] Kaye Good NP PVC's (premature ventricular contractions) (Primary Dx); S/P mitral valve replacement; Atrial fibrillation, unspecified type (HCC); NICM (nonischemic cardiomyopathy) (CMS/HCC) (HCC); NSVT (nonsustained ventricular tachycardia) (HCC); PVC (premature ventricular contraction) 10/13/2024 10:30 AM GRADUATE FELLOW Ancillary Procedure [facility] Cardiology [address] [facility] Medical Office Building [address] [place] [address] Heart block AV second degree; Fitting and adjustment of cardiac pacemaker 09/28/2024 Anticoagulation Visit [facility] Card[facility] [address] [place] [address] Anup Rock RN Atrial fibrillation, unspecified type (HCC) (Primary Dx) from Last 3 Months Allergies No known active allergies Medications multivitamin tabletIndicatio ns:Vitamin Deficiency Prevention Take 1 tablet by mouth every morning Active warfarin (COUMADIN) 4 mg tablet TAKE 2 TABLETS DAILY 180 tablet 2 04/29/2024 Active metoprolol XL (TOPROL-XL) 25 mg extended release tabletIndicatio ns:NICM (nonischemic cardiomyopathy) (CMS/HCC) ([facility]) TAKE 1 TABLET DAILY 90 tablet 3 05/24/2024 Active Active Problems Problem Noted Date Diagnosed Date PVC (premature ventricular contraction) 10/13/20 24 NSVT (nonsustained ventricular tachycardia) 10/03 NICM (nonischemic cardiomyopathy) (CMS/HCC) 05/2023 Presence of permanent cardiac pacemaker 06/09/20 Overview (07/22/2023): Medtronic Clair Dual Pacemaker. Dx; Second Degree aVB. DOI 04/28/2020-Dr Thomson. Gisselle. Carelink remote. Device is followed @ [facility] device clinic. Heart block AV second degree 01/11/2020 Coronary artery disease invo lving [place] coronary artery of [place] heart without angina pectoris 06/16/2019 Atrial fibrillation (CMS/HCC) 03/10/2019 S/P mitral valve replacement 03/04/2019 Hyperlipidemia LDL goal <100 03/04/2019 Pre-diabetes 03/04/2019 Pulmonary hypertension 03/04/2019 Immunizations Name Administration Dates Next Due Hep A, Adult 04/08/1999 IPV 11/13/1996 Influenza, Quadrivalent, Hig h Dose, Preservative Free, Intrr 08/31/2020 Influenza, Split 12/08/2004,10/15/2003, 2 Influenza, Trivalent, Adjuva nted, Intramuscular 08/01/2019 Influenza, Unspecified 06/16/2023,08/16/2021 Influenza, Whole 11/12/2003 MMR 10/14/1989 Pfizer SARS-CoV-2 Monovalent Vaccination (12+ Yrs) PURPLE 09/10/2023,08/30/2022,08/16/2021,01/21,12/31/2020 Pneumococcal Conjugate Pcv20 06/16/2023 Pneumococcal Polysaccharide PPV23 11/03/2017 RSV, Bivalent, Protein Subun it Rsvpref, Diluent (Abrysvo) 09/10/2023 Td, adsorbed 05/09/2000 Tdap 08/05/2019 Typhoid Inactivated 11/24/2004 Typhoid, Unspecified 11/28/2002 Varicella 10/07/2019,08/05/2019 Yellow Fever 11/24/2004,11/23/1995 ZOSTER Recombinant 10/07/2019,08/05/2019 Social History Tobacco Use Types Packs/Day Years Used Date Smoking Tobacco: Some Days Cigarettes Cigars Smokeless Tobacco: Never Tobacco Cessation:Ready to Q uit: Not Asked; Counseling Given: Not Answered Comments:1-2 cigars per week Alcohol Use Standard [...] Sexual Orientation Straight 09/09/2019 9: 00 PM GRADUATE FELLOW Last Filed Vital Signs Vital Sign Reading Time Taken Comments Blood Pressure 153/87 10/13/2024 10:19 AM GRADUATE FELLOW Pulse 72 10/13/2024 10:19 AM GRADUATE FELLOW Temperature 36.4 C (97.5 F) 08/17/2020 2:03 PM CDT Respiratory Rate 18 04/29/2020 8:00 AM CDT Oxygen Saturation 97% 10/13/2024 10:19 AM GRADUATE FELLOW Inhaled Oxygen Concentration - - Weight 85.3 kg (188 lb) 10/13/2024 10:19 AM GRADUATE FELLOW Height 180.3 cm (5' 11 ) 10/13/2024 10:19 AM GRADUATE FELLOW Body Mass Index 26.22 10/13/2024 10:19 AM GRADUATE FELLOW Plan of Treatment Not on file Medical Devices Implanted Type Area Chemical Treatment Operator Device Identifier Shelf Expiration Date Model / Serial / Lot Medtronic Cardiac Rhythm Mgmt 5076-52 Capsurefix Novus 6.2fr 2mm 52cm Bipolar Screw In Implantable Latex Free - [id number] - [id number] Implanted:Qty: 1 on 04/28/2020 by Benoit Thomson MD at [facility] Lead Left: Heart Medtronic Inc 01/05/2022 5076-52 / [id number] / Medtronic Cardiac Rhythm Mgmt 5076-45 Capsurefix Novus 6.2fr 2mm 45cm Bipolar Screw In Implantable - [id number] - [id number] Implanted:Qty: 1 on 04/28/2020 by Benoit Thomson MD at [facility] Lead Left: Heart Medtronic Inc 01/09/2022 5076-45 / [id number] / Medtronic Cardiac Rhythm Mgmt [id number] [place] Wirelessly Pacemaker Cardiac - [id number] - [id number] Implanted:Qty: 1 on 04/28/2020 by Benoit Thomson MD at [facility] Pacemaker Left: Heart Medtronic Inc 07/31/2021 [id number] / [id number] / Procedures Procedure Name Priority Date/Time Associated Diagnosis Comments PROTIME-INR Routine 11/24/2024 PROTIME-INR Routine 10/29/2024 EXTENDED/SHELTER HOLTER PATCH (>48 HOURS UP TO 7 DAYS) Routine 10/13/2024 11:59 AM GRADUATE FELLOW PVC's (premature ventricular contractions) DEVICE CHECK - IN OFFICE Routine 10/13/2024 9:59 AM GRADUATE FELLOW Heart block AV second degree Fitting and adjustment of cardiac pacemaker PROTIME-INR Routine 09/28/2024 from Last 3 Months Results * (ABNORMAL) Protime-INR (11/24/2024) INR 2.10(A) 0.90 - 1.10 EXTERNAL LAB Blood Historical Provider MD LAB BLOOD ORDERABLES Aimee l Result EXTERNAL LAB * (ABNORMAL) Protime-INR (10/29/2024) INR 2.60(A) 0.90 - 1.10 EXTERNAL LAB Blood Historical Provider MD LAB BLOOD ORDERABLES Aimee l Result Performing Organization Address [facility] Co de Phone Number EXTERNAL LAB * Extended/Intermediate Holter Patch (>48 hours up to 7 days) (10/13/2024 11:59 AM GRADUATE FELLOW) Anatomical Region Laterality Modality Electrocardiogra phy 10/13/2024 11:3 0 AM GRADUATE FELLOW Narrative 10/25/2024 10:25 AM GRADUATE FELLOW Patient name: Leroy Osorio Date of test: 10/13/2024 Type of Test: LT Holter (48 hrs to 7 days) Hospital #: 0 Location: [facility] : 1945 Age: 79 Sex: M Ref Physician(s): KAYE GOOD MD Interpreted by: Ravi Almonte MD Hook-Up Tech: [employer] Reason for Test: Hook-up Tech: [employer] Monitoring [employer] Monitor Serial#: [id number] Case#: [id number] Diary Instruction: Yes Hook-up Tech Comment: [id number] Date Time Hooked-up: 00:00:00 Monitor Returned: 10/25/2024 Recording Started: 10/13/2024 Recording Ended: 10/16/2024 Test Duration (hrs:min): 72 Period Analyzed (hrs:min): 68:22 Quality: STATISTICS: Events: 0 Total QRS: 036119 Vent. Beats: 610 Supravent. Beats: 74460 Avg HR: 63 Min HR: 47 at 10/16/2024 00:26:00 Max HR: 130 at 10/14/2024 15:00:00 Tachycardia (>100bpm): 5 episodes 0 min Bradycardia (<59bpm): 22 episodes 0 min Paced Beats: 0% VERTICULAR EVENTS: Isolated: 608 Bi/Trigeminy: 0/0 Couplets: 1 Total Runs: 0 Beats: Longest: 0 beats 0 bpm at Slowest: 0 beats 0 bpm at Fastest: 0 beats 0 bpm at SPRAVENTRICULAR EVENTS: Isolated: 90147 Couplets: 16 Total Runs: 0 Beats: Longest: 0 beats 0 bpm at Slowest: 0 beats 0 bpm at Fastest: 0 beats 0 bpm at RR/PAUSES: Min: msec at Max: msec at Total Pauses (>3sec): 0 Longest Pauses: 0 sec at Afib/Aflutter: Afib: 0 episodes 0 min Maximum: 0 bpm Minimum: 0 bpm SCANNING SUMMARY: : *The predominant rhythm was Sinus. *The Maximum Heart Rate recorded was 130 bpm, 10/14 15:00:01, the Minimum Heart Rate recorded was 47 bpm, 10/16 00:26:20, and the Average Heart Rate was 63 bpm. *There were 610 VE beats with a burden of <1 %. *There were 10,434 SVE beats with a burden of 4 %. There were 5 occurrences of Supraventricular Tachycardia with the Fastest episode 130 bpm, 10/14 15:00:00, and the Longest episode 6 beats, 10/15 10:46:46. *There were 0 Patient Triggers. SOME ECTOPICS, SOME SHORT RUNS OF ATRIAL TACHYCARDIA INTERPRETATION: : I have reviewed all the strips and agree with the interpretations. IF I HAVE ADDITIONAL COMMENTS I HAVE ADDED THEM IN BOLD UNDER SUMMARY. To get this report, open the patient's chart in [employer]. Under CHART REVIEW, click on the CARDIOLOGY tab. Then click on Event monitor or Extended/Intermediate Holter Patch. The summary and interpretation are available by scrolling down. To get the Actual strips and more details Under ORDER-LEVEL DOCUMENTS click on CARDIOLOGY- ORDER- Scan on (DATE, TIME) MONITOR STRIPS PDF. (Blue Font). This PDF will display rhythms of interest. It will show heart rates, presence of atrial fib or flutter, a strip with the fastest heart rate and slowest, a summary, On the right there is a column which lists numbers of Supraventricular beats, couplets and runs and VPCs couplets and runs and a list of all patient triggers and the symptoms and arrhythmias at the time. Then all strips of interest will be printed out. This study was interpreted by Ravi Almonte MD Confirmed on 10/25/2024 - 10:25:39 by Ravi Almonte MD I have personally reviewed and interpreted this study. Procedure Note Ravi Almonte MD - 10/25/2024 Patient name: Leroy Osorio Date of test: 10/13/2024 Type of Test: LT Holter (48 hrs to 7 days) Hospital #: 0 Location: [facility] : 1945 Age: 79 Sex: M Ref Physician(s): KAYE GOOD MD Interpreted by: Ravi Almonte MD Hook-Up Tech: [employer] Monitoring [employer] Reason for Test: Hook-up Tech: [employer] Monitoring Service Monitor Serial#: [id number] Case#: [id number] Diary Instruction: Yes Hook-up Tech Comment: [id number] Date Time Hooked-up: 00:00:00 Monitor Returned: 10/25/2024 Recording Started: 10/13/2024 Recording Ended: 10/16/2024 Test Duration (hrs:min): 72 Period Analyzed (hrs:min): 68:22 Quality: STATISTICS: Events: 0 Total QRS: 622343 Vent. Beats: 610 Supravent. Beats: 95625 Avg HR: 63 Min HR: 47 at 10/16/2024 00:26:00 Max HR: 130 at 10/14/2024 15:00:00 Tachycardia (>100bpm): 5 episodes 0 min Bradycardia (<59bpm): 22 episodes 0 min Paced Beats: 0% VERTICULAR EVENTS: Isolated: 608 Bi/Trigeminy: 0/0 Couplets: 1 Total Runs: 0 Beats: Longest: 0 beats 0 bpm at Slowest: 0 beats 0 bpm at Fastest: 0 beats 0 bpm at SPRAVENTRICULAR EVENTS: Isolated: [id number] Couplets: 16 Total Runs: 0 Beats: Longest: 0 beats 0 bpm at Slowest: 0 beats 0 bpm at Fastest: 0 beats 0 bpm at RR/PAUSES: Min: msec at Max: msec at Total Pauses (>3sec): 0 Longest Pauses: 0 sec at Afib/Aflutter: Afib: 0 episodes 0 min Maximum: 0 bpm Minimum: 0 bpm SCANNING SUMMARY: : *The predominant rhythm was Sinus. *The Maximum Heart Rate recorded was 130 bpm, 10/14 15:00:01, the Minimum Heart Rate recorded was 47 bpm, 10/16 00:26:20, and the Average Heart Rate was 63 bpm. *There were 610 VE beats with a burden of <1 %. *There were 10,434 SVE beats with a burden of 4 %. There were 5 occurrences of Supraventricular Tachycardia with the Fastest episode 130 bpm, 10/14 15:00:00, and the Longest episode 6 beats, 10/15 10:46:46. *There were 0 Patient Triggers. SOME ECTOPICS, SOME SHORT RUNS OF ATRIAL TACHYCARDIA INTERPRETATION: : I have reviewed all the strips and agree with the interpretations. IF I HAVE ADDITIONAL COMMENTS I HAVE ADDED THEM IN BOLD UNDER SUMMARY. To get this report, open the patient's chart in [employer]. Under CHART REVIEW, click on the CARDIOLOGY tab. Then click on Event monitor or Extended/Intermediate Holter Patch. The summary and interpretation are available by scrolling down. To get the Actual strips and more details Under ORDER-LEVEL DOCUMENTS click on CARDIOLOGY- ORDER- Scan on (DATE, TIME) MONITOR STRIPS PDF. (Blue Font). This PDF will display rhythms of interest. It will show heart rates, presence of atrial fib or flutter, a strip with the fastest heart rate and slowest, a summary, On the right there is a column which lists numbers of Supraventricular beats, couplets and runs and VPCs couplets and runs and a list of all patient triggers and the symptoms and arrhythmias at the time. Then all strips of interest will be printed out. This study was interpreted by Ravi Almonte MD Confirmed on 10/25/2024 - 10:25:39 by Ravi Almonte MD I have personally reviewed and interpreted this study. Kaye Good NP [facility] PROC EDURES Final Result * DEVICE CHECK - IN OFFICE (10/13/2024 9:59 AM GRADUATE FELLOW) Anatomical Region Laterality Modality Other 10/13/2024 2:00 AM GRADUATE FELLOW Narrative 10/17/2024 8:05 PM GRADUATE FELLOW Interpretation Summary: Anticoagulation (AC) Patient prescribed Warfarin (Coumadin) Patient on anticoagulant therapy Procedure Note Benoit Thomson MD - 10/17/2024 Interpretation Summary: Anticoagulation (AC) Patient prescribed Warfarin (Coumadin) Patient on anticoagulant therapy Benoit Thomson MD [facility] PRO CEDURES Final Result * (ABNORMAL) Protime-INR (09/28/2024) INR 2.30(A) 0.90 - 1.10 EXTERNAL LAB Blood Historical Provider LAB BLOOD ORDERABLES Aimee moore Result EXTERNAL LAB from Last 3 Months Insurance MEDICARE FOR LIFE MEDICARE FOR LIFE MEDICARE FOR LIFE MEDICARE FOR LIFE Advance Directives For more information, please contact: [phone] * Full Code (Latest Code Status on File) Date Activated Date Inactivated Comments 04/28/2020 2:49 PM 04/29/2020 5:16 PM Care Teams Bait Man Relationship Specialty Start Date End Date Zoraida Mancia MD [address] [facility] [address] [place] [address] PCP - General Family Medicine 09/10/19
--- OUTSIDE RECORDS SUMMARY | 2024-12-09 12:42 | XMS_ITS | Clinical Summary ---
Author Organization [facility] Address [address] [place] [address] Care Team Providers Care Metal Buggy Operator Name Role Phone Zoraida Mancia MD Primary Care Provider Aris lynn Source Comments [facility],non-owned Affiliates and Associated Physician Practices is amultiple site organization consisting of ambulatory clinics and hospital sitesin [place], [place], [place] and [place]. This disclosure is being madepursuant to the Care Everywhere program and may not contain all information available regarding this patient. Last updated 18.[facility] Allergies No known active allergies Medications * [...] Immunizations Name Administration Dates Next Due Covid Quikr [place] primary monoval ent 12+ yr 0.3mL Purple [...] Mass Index 25.68 02/02/2022 12:37 AM CDT Plan of Treatment Health Maintenance Due Date Last Done Comments MEDICARE AWV 12 MONTHS 1945 HEPATITIS C SCREENING 06/14/1964 ZOSTER VACCINE (1 of 2) 1996 PNEUMOCOCCAL VACCINE 50+ (2 of 2 - PCV) 11/03/2018 11/03/2017 Respiratory Syncytial Virus (RSV) Vaccine Pt: or over 60 yrs (1 - 1-dose 75+ series) 2021 COVID-19 VACCINE ( season) 2024 08/16/2021, 01/21/2021, 12/31/2020 INFLUENZA VACCINE (#1) 2024 , 12/08/2004, 10/15/2003, Additional history exists DEPRESSION SCREENING 11/03/2024 DTAP/TDAP/TD VACCINES (2 - Td or Tdap) 08/05/2029 08/05/2019 HEPATITIS B VACCINE Aged Out No longe r eligible based on patient's age to complete this topic HIB VACCINE Aged Out No longer eligi ble based on patient's age to complete this topic HPV VACCINE Aged Out No longer eligi ble based on patient's age to complete this topic MENINGOCOCCAL (Group B) VACCINE Aged Out No longer eligible based on patient's age to complete this topic MENINGOCOCCAL VACCINE Aged Out No radha knorad eligible based on patient's age to complete this topic Advance Directives * Full Code (Latest Code Status on File) Date Activated Date Inactivated Comments 02/02/2022 5:06 AM 02/03/2022 1:29 PM Care Teams Metal Buggy Operator Relationship Specialty Start Date End Date Zoraida Mancia MD [address] [place] [address] PCP - General Family Medicine 02/02/22
--- OUTSIDE RECORDS SUMMARY | 2024-12-09 12:42 | XMS_ITS | Clinical Summary ---
Author Organization [facility] Address [address] [place] [address] Care Team Providers Care Manager House Name Role Phone Zoraida Mancia MD Primary Care Provider Allergies No known active allergies Medications multivitamin tabletIndicatio ns:Vitamin Deficiency Prevention Take 1 tablet by mouth every morning Active warfarin (COUMADIN) 4 mg tablet TAKE 2 TABLETS DAILY 180 tablet 2 04/29/2024 Active metoprolol XL (TOPROL-XL) 25 mg extended release tabletIndicatio ns:NICM (nonischemic cardiomyopathy) (CMS/HCC) ([facility]) TAKE 1 TABLET DAILY 90 tablet 3 05/24/2024 Active Active Problems Problem Noted Date Diagnosed Date PVC (premature ventricular contraction) 10/13/20 24 NSVT (nonsustained ventricular tachycardia) 10/03 NICM (nonischemic cardiomyopathy) (CMS/HCC) 05/2023 Presence of permanent cardiac pacemaker 06/09/20 20 Overview (07/22/2023): Medtronic Har[place]on Dual Pacemaker. Dx; Second Degree aVB. DOI 04/28/2020-Dr Thomson. Gisselle. Carelink remote. Device is followed @ [facility] device clinic. Heart block AV second degree 01/11/2020 Coronary artery disease invo lving kaibab coronary artery of kaibab heart without angina pectoris 06/16/2019 Atrial fibrillation (CMS/HCC) 03/10/2019 S/P mitral valve replacement 03/04/2019 Hyperlipidemia LDL goal <100 03/04/2019 Pre-diabetes 03/04/2019 Pulmonary hypertension 03/04/2019 Encounters Date Type Department Care Team Description 11/25/2024 Anticoagulation Visit [facility] Cardiology [address] [place] [address] [place] [phone] Anup Rock RN Atrial fibrillation, unspecified type (HCC) (Primary Dx) 11/01/2024 Anticoagulation Visit [facility] Cardiology [address] [place] [address] [place] [phone] Anup Rock RN Atrial fibrillation, unspecified type (HCC) (Primary Dx) 10/13/2024 11:30 AM SUPPLY CHAIN PLANNER Ancillary Procedure [facility] [address] [place] [address] [address] [place] [address] PVC's (premature ventricular contractions) 10/13/2024 11:00 AM SUPPLY CHAIN PLANNER Office Visit [address] [place] [address] Kaye Good NP PVC's (premature ventricular contractions) (Primary Dx); S/P mitral valve replacement; Atrial fibrillation, unspecified type (HCC); NICM (nonischemic cardiomyopathy) (CMS/HCC) (HCC); NSVT (nonsustained ventricular tachycardia) (HCC); PVC (premature ventricular contraction) 10/13/2024 10:30 AM SUPPLY CHAIN PLANNER Ancillary Procedure [address] [place] [phone] Heart block AV second degree; Fitting and adjustment of cardiac pacemaker 09/28/2024 Anticoagulation Visit [facility] Cardiology [address] [place] [address] [place] [phone] Anup Rock RN Atrial fibrillation, unspecified type (HCC) (Primary Dx) from Last 3 Months Immunizations Name Administration Dates Next Due Hep [...] 10/07/2019,08/05/2019 Yellow Fever 11/24/2004,11/23/1995 ZOSTER Recombinant 10/07/2019,08/05/2019 Surgical History Surgery Date Site/Laterality Comments MITRAL VALVE REPLACEMENT 08/03/2017 - 09/02/2017 REPLACEMENT TOTAL KNEE BILATERAL CATARACT EXTRACTION 01/01/2015 - 01/31/2015 CARDIAC VALVE REPLACEMENT Mitral valve JOINT REPLACEMENT Knees Left 12/2007 Ri ght 12/2009 VASECTOMY 11/03/1983 - 11/02/1984 Medical History Medical History Date Comments Cataracts, bilateral H/O total knee replacement Bilat eral CAD (coronary artery disease) Hypertension AV block, 2nd degree PVC (premature ventricular contraction) PAC (premature atrial contraction) Pulmonary hypertension (HCC) History of atrial fibrillation Kidney stone Last incident 05/20/2021 Family History Medical History Relation Name Comments aortic valve disease Brother Cancer Father Leroy Lung cancer Father Leroy Cancer Mother Leona Lung cancer Mother Leona Anesthesia problems Neg Hx Relation Name Status Comments Brother Alive Father Leroy (Age 73) Mother Leona (Age 41) Sister Alive Social History Tobacco Use Types Packs/Day Years [...] Sexual Orientation Straight 09/09/2019 9: 00 PM SUPPLY CHAIN PLANNER Obstetrics History Last Filed Vital Signs Vital Sign Reading Time Taken Comments Blood Pressure 153/87 10/13/2024 10:19 AM SUPPLY CHAIN PLANNER Pulse 72 10/13/2024 10:19 AM SUPPLY CHAIN PLANNER Temperature 36.4 C (97.5 F) 08/17/2020 2:03 PM CDT Respiratory Rate 18 04/29/2020 8:00 AM CDT Oxygen Saturation 97% 10/13/2024 10:19 AM SUPPLY CHAIN PLANNER Inhaled Oxygen Concentration - - Weight 85.3 kg (188 lb) 10/13/2024 10:19 AM SUPPLY CHAIN PLANNER Height 180.3 cm (5' 11 ) 10/13/2024 10:19 AM SUPPLY CHAIN PLANNER Body Mass Index 26.22 10/13/2024 10:19 AM SUPPLY CHAIN PLANNER Plan of Treatment Health Maintenance Due Date Last Done Comments Depression Screening 1945 Hepatitis C Screening 1945 Hepatitis B Screening 1964 Abdominal Aortic Aneurysm (A AA) Screen 2011 Well Visit 65+ 2011 Fall Risk Assessment 04/29/2021 04/29/2020 Covid-19 Vaccine (2023-2 5 season) 2024 09/10/2023, 08/30/2022, 08/16/2021, Additional history exists Influenza Vaccine (#1) 2024 , 08/16/2021, 08/31/2020, Additional history exists DTaP/Tdap/Td Vaccine (2 - Td or Tdap) 08/05/2029 08/05/2019, 05/09/2000 Zoster Vaccine Completed 10/07/2019, 08/05/2019 Pneumococcal vaccine 65+ Completed 06/16/2023, 11/2017 Medical Devices Implanted Type Area Cyber Transport Systems Specialist Device Identifier Shelf Expiration Date Model / Serial / Lot Medtronic Cardiac Rhythm Mgmt 5076-52 Capsurefix Novus 6.2fr 2mm 52cm Bipolar Screw In Implantable Latex Free - [id number] - [id number] Implanted:Qty: 1 on 04/28/2020 by Benoit Thomson MD at [facility] Lead Left: Heart Medtronic Inc 01/05/2022 5076-52 / [id number] / Medtronic Cardiac Rhythm Mgmt 5076-45 Capsurefix Novus 6.2fr 2mm 45cm Bipolar Screw In Implantable - [id number] - [id number] Implanted:Qty: 1 on 04/28/2020 by Benoit Thomson MD at [facility] Lead Left: Heart Medtronic Inc 01/09/2022 5076-45 / [id number] / Medtronic Cardiac Rhythm Mgmt [id number] [employer]air [employer] Pacemaker Cardiac - [id number] - [id number] Implanted:Qty: 1 on 04/28/2020 by Benoit Thomson MD at [facility] Pacemaker Left: Heart Medtronic Inc 07/31/2021 [id number] / [id number] / Procedures Procedure Name Priority Date/Time Associated Diagnosis Comments PROTIME-INR Routine 11/24/2024 PROTIME-INR Routine 10/29/2024 EXTENDED/USP HOLTER PATCH (>48 HOURS UP TO 7 DAYS) Routine 10/13/2024 11:59 AM SUPPLY CHAIN PLANNER PVC's (premature ventricular contractions) DEVICE CHECK - IN OFFICE Routine 10/13/2024 9:59 AM SUPPLY CHAIN PLANNER Heart block AV second degree Fitting and adjustment of cardiac pacemaker PROTIME-INR Routine 09/28/2024 from Last 3 Months Results * (ABNORMAL) Protime-INR (11/24/2024) INR 2.10(A) 0.90 - 1.10 EXTERNAL LAB Blood Historical Provider LAB BLOOD ORDERABLES Aimee l Result EXTERNAL LAB * (ABNORMAL) Protime-INR (10/29/2024) INR 2.60(A) 0.90 - 1.10 EXTERNAL LAB Blood us Historical Provider MD LAB BLOOD ORDERABLES Aimee l Result Performing Organization Address City/[facility]/ZIP Co de Phone Number EXTERNAL LAB * Extended/Intermediate Holter Patch (>48 hours up to 7 days) (10/13/2024 11:59 AM SUPPLY CHAIN PLANNER) Anatomical Region Laterality Modality Electrocardiogra phy 10/13/2024 11:3 0 AM SUPPLY CHAIN PLANNER Narrative 10/25/2024 10:25 AM SUPPLY CHAIN PLANNER Patient name: Leroy Osorio Date of test: 10/13/2024 Type of Test: LT Holter (48 hrs to 7 days) Hospital #: 0 Location: [facility] : 1945 Age: 79 Sex: M Ref Physician(s): KAYE GOOD MD Interpreted by: Ravi Almonte MD Hook-Up Tech: [employer] Reason for Test: Hook-up Tech: [employer] Monitor Serial#: [id number] Case#: [id number] Diary Instruction: Yes Hook-up Tech Comment: [id number] Date Time Hooked-up: 00:00:00 Monitor Returned: 10/25/2024 Recording Started: 10/13/2024 Recording Ended: 10/16/2024 Test Duration (hrs:min): 72 Period Analyzed (hrs:min): 68:22 Quality: STATISTICS: Events: 0 Total QRS: 035606 Vent. Beats: 610 Supravent. Beats: 48009 Avg HR: 63 Min HR: 47 at 10/16/2024 00:26:00 Max HR: 130 at 10/14/2024 15:00:00 Tachycardia (>100bpm): 5 episodes 0 min Bradycardia (<59bpm): 22 episodes 0 min Paced Beats: 0% VERTICULAR EVENTS: Isolated: 608 Bi/Trigeminy: 0/0 Couplets: 1 Total Runs: 0 Beats: Longest: 0 beats 0 bpm at Slowest: 0 beats 0 bpm at Fastest: 0 beats 0 bpm at SPRAVENTRICULAR EVENTS: Isolated: [id number] Couplets: 16 Total Runs: 0 Beats: Longest: [...] this report, open the patient's chart in [facility]. Under CHART REVIEW, click on the CARDIOLOGY [...] to 7 days) Hospital #: 0 Location: [facility] : 1945 Age: 79 Sex: M Ref Physician(s): KAYE GOOD MD Interpreted by: Ravi Almonte MD Hook-Up Tech: [employer] Reason for Test: Hook-up Tech: [employer] Monitor Serial#: [id number] Case#: [id number] Diary Instruction: Yes Hook-up Tech Comment: [id number] Date Time Hooked-up: 00:00:00 Monitor Returned: 10/25/2024 Recording Started: 10/13/2024 Recording Ended: 10/16/2024 Test Duration (hrs:min): 72 Period Analyzed (hrs:min): 68:22 Quality: STATISTICS: Events: 0 Total QRS: 878425 Vent. Beats: 610 Supravent. Beats: 40588 Avg HR: 63 Min HR: 47 at 10/16/2024 00:26:00 Max HR: 130 at 10/14/2024 15:00:00 Tachycardia (>100bpm): 5 episodes 0 min Bradycardia (<59bpm): 22 episodes 0 min Paced Beats: 0% VERTICULAR EVENTS: Isolated: 608 Bi/Trigeminy: 0/0 Couplets: 1 Total Runs: 0 Beats: Longest: 0 beats 0 bpm at Slowest: 0 beats 0 bpm at Fastest: 0 beats 0 bpm at SPRAVENTRICULAR EVENTS: Isolated: [id number] Couplets: 16 Total Runs: 0 Beats: Longest: [...] this report, open the patient's chart in [facility]. Under CHART REVIEW, click on the CARDIOLOGY [...] Ravi Almonte MD Confirmed on 10/25/2024 - :25:39 by Ravi Almonte MD I have personally reviewed and interpreted this study. us Kaye Good NP [facility] PROC EDURES Final Result * DEVICE CHECK - IN OFFICE (10/13/2024 9:59 AM SUPPLY CHAIN PLANNER) Anatomical Region Laterality Modality Other 10/13/2024 2:00 AM SUPPLY CHAIN PLANNER Narrative 10/17/2024 8:05 PM SUPPLY CHAIN PLANNER Interpretation Summary: Anticoagulation (AC) Patient prescribed Warfarin (Coumadin) Patient on anticoagulant therapy Procedure Note Benoit Thomson MD - 10/17/2024 Interpretation Summary: Anticoagulation (AC) Patient prescribed Warfarin (Coumadin) Patient on anticoagulant therapy us Benoit Thomson MD [facility] PRO CEDURES Final Result * (ABNORMAL) Protime-INR (09/28/2024) INR 2.30(A) 0.90 - 1.10 EXTERNAL LAB Blood us Historical Provider LAB BLOOD ORDERABLES Aimee l Result EXTERNAL LAB from Last 3 Months Insurance MEDICARE [employer] MEDICARE FOR [facility] [place] [address] [place] [address] MEDICARE FOR LIFE Advance Directives For more information, please contact: [phone] * Full Code (Latest Code Status on File) Date Activated Date Inactivated Comments 04/28/2020 2:49 PM 04/29/2020 5:16 PM Care Teams Manager House Relationship Specialty Start Date End Date Zoraida Mancia MD [address] [facility] [address] [place] [id number] PCP - General Family Medicine 09/10/19
== END 2024-12-09 12:37 | disposition home or self-care (01) ==
PROVIDERS: PCP Family Medicine; Visit Provider Nurse Practitioner Family
DX: N20.0 Calculus of kidney (principal)
CPT/HCPCS: 74018

== ENCOUNTER 2024-12-15 14:54 | Outpatient (CLI) | payer MEDICARE, OTHER, SELFPAY ==
--- NOTE | ~2024-12-15 | CT_ITS ---
CLINICAL INDICATION: Renal calculi COMPARISON: Reference is made to plain film evaluations of the abdomen performed most recently on 12/09 and dating back to 07/24/2021. TECHNIQUE: Multiple contiguous axial images of the abdomen and pelvis were performed without the admi nistration of intravenous contrast The dose-length product (DLP) was 249.25 mGy-cm. Automated exposure control and iterative reconstruction technique were employed. FINDINGS/OBSERVATIONS: Visualized lower thorax: Left basilar atelectasis/scar. The remainder of the bilateral lung bases are clear. The heart is enlarged, without pericardial effusion. Pacemaker leads are present. Small hiatal hernia is present. Liver: The liver demonstrates homogeneous attenuation and is not enlarged measuring 12 cm in longitudinal di mension. Gallbladder and biliary system: The gallbladder is decompressed, and otherwise unremarkable. Pancreas: Limited evaluation of the pancreas secondary to the lack of intravenous contrast. Spleen: The spleen demonstrates homogeneous attenuation and is not enlarged measuring 4 cm in longitudinal di mension. Kidneys: Within the lower pole of the left kidney are 3 calcified stones. The 2 larger stones are wit hin the anterior lower pole measuring 6 mm each. The third stone is within the posterior lower pole m easuring 3.5 mm. A single 2 mm stone is identified within the interpolar region of the right kidney. All stones within the kidney are nonobstructing. Mild left-sided hydronephrosis is identified extending to the distal left ureter where a 6 mm calculu s is identified. Adrenal glands: Unremarkable. Gastrointestinal tract: Fecal stasis within the colon. Appendix: The air-filled appendix is of normal caliber (axial series, images 103 through 115) Vasculature: Calcified atherosclerotic disease. Lymph nodes: Limited evaluation without intravenous contrast. Pelvic structures: The bladder contains an oval-shaped calcification measuring 16 mm. The prostate gland is not enlarged. Body wall and musculoskeletal: Fat-containing right inguinal hernia is present as is a right-sided hydrocele, and a left-sided hydro schuyler is also suspected. Significant degenerative disease within the lower thoracic and lumbosacral spines, with osteophyte fo rmation, disc space narrowing, endplate changes and vacuum phenomena. Dextroscoliotic curvature of the lumbar spine is also present. Grade 1 anterolisthesis of L4 onto L3 is present. Significant facet arthropathy is also noted. IMPRESSION: Mild left-sided hydroureteronephrosis secondary to a 6 mm calculus in the distal left ureter. Bilateral nonobstructing renal calculi. 16 cm bladder stone. Fat-containing right inguinal hernia with a right-sided hydrocele with a left-sided hydrocele suspect ed. Follow up with a nonemergent scrotal ultrasound is suggested, when the patient is clinically able . Reviewed, dictated and finalized at location A. [facility] IMPRESSION: Mild left-sided hydroureteronephrosis secondary to a 6 mm calculus in the dista l left ureter. Bilateral nonobstructing renal calculi. 16 cm bladder stone. Fat-containing right inguinal hernia with a right-sided hydrocele with a left-s ided hydrocele suspected. Follow up with a nonemergent scrotal ultrasound is stubbs ggested, when the patient is clinically able.
--- OUTSIDE RECORDS SUMMARY | 2024-12-15 15:00 | XMS_ITS | Encounter Summary ---
Author Organization [facility] Healthcare Address [address] [place] [address] Care Team Providers Care Wire Bender Name Role Phone Zoraida Mancia MD Primary Care Provider Encounter Details Date Type Department Care Team (Late st Contact Info) Description 05/27/2024 Orders Only [facility] Information Management [address] [place] [id number] Scanning, Provider Social History Tobacco Use Types [...] Sexual Orientation Straight 09/09/2019 9: 00 PM OPERATIONS PROGRAM MANAGER documented as of this encounter Plan of Treatment Not on file documented as of this encounter Procedures Procedure Name Priority Date/Time Associated Diagnosis Comments SCAN - LABS 05/27/2024 documented in this encounter Results * SCAN - LABS (05/27/2024) Provider Scanning Final Result documented in this encounter Visit Diagnoses Not on filedocumented in this encounter Care Teams Wire Bender Relationship Specialty Start Date End Date Zoraida Mancia MD [address] [facility] [address] [facility] [address] [place] [address] PCP - General Family Medicine 09/10/19 documented as of this encounter
--- OUTSIDE RECORDS SUMMARY | 2024-12-15 15:00 | XMS_ITS | Referral Summary ---
Author Organization [facility] Address [address] [place] [address] Care Team Providers Care Valve Technician Name Role Phone Zoraida Mancia MD Primary Care Provider Encounters Date Type Department Care Team Description 11/25/2024 Anticoagulation Visit [facility] Cardiology [address] [place] [address] [address] [place] [address] Anup Rock RN Atrial fibrillation, unspecified type (HCC) (Primary Dx) 11/01/2024 Anticoagulation Visit [facility] Cardiology [address] [place] [address] [address] [place] [address] Anup Rock, RN Atrial fibrillation, unspecified type (HCC) (Primary Dx) 10/13/2024 11:30 AM TRANSPORTATION CONSULTANT Ancillary Procedure [facility] [address] [place] [address] [address] [place] [phone] PVC's (premature ventricular contractions) 10/13/2024 11:00 AM TRANSPORTATION CONSULTANT Office Visit [facility] Cardiology [address] [place] [address] Medical Office Building [address] [place] [address] Kaye Good NP PVC's (premature ventricular contractions) (Primary Dx); S/P mitral valve replacement; Atrial fibrillation, unspecified type (HCC); NICM (nonischemic cardiomyopathy) (CMS/HCC) (HCC); NSVT (nonsustained ventricular tachycardia) (HCC); PVC (premature ventricular contraction) 10/13/2024 10:30 AM TRANSPORTATION CONSULTANT Ancillary Procedure [facility] Cardiology [address] [facility] Medical Office Building [address] [place] [phone] Heart block AV second degree; Fitting and adjustment of cardiac pacemaker 09/28/2024 Anticoagulation Visit [facility] Cardiology [address] [place] [address] Anup Rock RN Atrial fibrillation, unspecified type (HCC) (Primary Dx) from Last 3 Months Allergies No known active allergies Medications multivitamin tabletIndicatio ns:Vitamin Deficiency Prevention Take 1 tablet by mouth every morning Active warfarin (COUMADIN) 4 mg tablet TAKE 2 TABLETS DAILY 180 tablet 2 04/29/2024 Active metoprolol XL (TOPROL-XL) 25 mg extended release tabletIndicatio ns:NICM (nonischemic cardiomyopathy) (CMS/HCC) ([facility]) TAKE 1 TABLET DAILY 90 tablet 3 05/24/2024 Active Active Problems Problem Noted Date Diagnosed Date PVC (premature ventricular contraction) 10/13/20 24 NSVT (nonsustained ventricular tachycardia) 10/03 NICM (nonischemic cardiomyopathy) (CMS/HCC) 05/2023 Presence of permanent cardiac pacemaker 06/09/20 Overview (07/22/2023): Medtronic [place] Dual Pacemaker. Dx; Second Degree aVB. DOI 04/28/2020-Dr Thomson. Gisselle. Carelink remote. Device is followed @ [facility] device clinic. Heart block AV second degree 01/11/2020 Coronary artery disease invo lving [place] coronary artery of [place] heart without angina pectoris 06/16/2019 Atrial fibrillation [...] Sexual Orientation Straight 09/09/2019 9: 00 PM TRANSPORTATION CONSULTANT Last Filed Vital Signs Vital Sign Reading Time Taken Comments Blood Pressure 153/87 10/13/2024 10:19 AM TRANSPORTATION CONSULTANT Pulse 72 10/13/2024 10:19 AM TRANSPORTATION CONSULTANT Temperature 36.4 C (97.5 F) 08/17/2020 2:03 PM CDT Respiratory Rate 18 04/29/2020 8:00 AM CDT Oxygen Saturation 97% 10/13/2024 10:19 AM TRANSPORTATION CONSULTANT Inhaled Oxygen Concentration - - Weight 85.3 kg (188 lb) 10/13/2024 10:19 AM TRANSPORTATION CONSULTANT Height 180.3 cm (5' 11 ) 10/13/2024 10:19 AM TRANSPORTATION CONSULTANT Body Mass Index 26.22 10/13/2024 10:19 AM TRANSPORTATION CONSULTANT Plan of Treatment Not on file Medical Devices Implanted Type Area Infrastructure Solutions Architect Device Identifier Shelf Expiration Date Model / Serial / Lot Medtronic Cardiac Rhythm Mgmt 5076-52 Capsurefix Novus 6.2fr 2mm 52cm Bipolar Screw In Implantable Latex Free - [id number] - [id number] Implanted:Qty: 1 on 04/28/2020 by Benoit Thomson MD at [facility] Lead Left: Heart Medtronic Inc 01/05/2022 5076-52 / [id number] / Medtronic Cardiac Rhythm Mgmt 5076-45 Capsurefix Novus 6.2fr 2mm 45cm Bipolar Screw In Implantable - [id number] - [id number] Implanted:Qty: 1 on 04/28/2020 by Benoit Thomson MD at [facility] Lead Left: Heart Medtronic Inc 01/09/2022 5076-45 / [id number] / Medtronic Cardiac Rhythm Mgmt [id number] [place] Wirelessly Pacemaker Cardiac - [id number] - [id number] Implanted:Qty: 1 on 04/28/2020 by Benoit Thomson MD at [facility] Pacemaker Left: Heart Medtronic Inc 07/31/2021 [id number] / [id number] / Procedures Procedure Name Priority Date/Time Associated Diagnosis Comments PROTIME-INR Routine 11/24/2024 PROTIME-INR Routine 10/29/2024 EXTENDED/CORRECTION HOLTER PATCH (>48 HOURS UP TO 7 DAYS) Routine 10/13/2024 11:59 AM TRANSPORTATION CONSULTANT PVC's (premature ventricular contractions) DEVICE CHECK - IN OFFICE Routine 10/13/2024 9:59 AM TRANSPORTATION CONSULTANT Heart block AV second degree Fitting and [...] ORDERABLES Aimee l Result Performing Organization Address [facility] Co de Phone Number EXTERNAL LAB * Extended/Fpc Holter Patch (>48 hours up to 7 days) (10/13/2024 11:59 AM TRANSPORTATION CONSULTANT) Anatomical Region Laterality Modality Electrocardiogra phy 10/13/2024 11:3 0 AM TRANSPORTATION CONSULTANT Narrative 10/25/2024 10:25 AM TRANSPORTATION CONSULTANT Patient name: Leroy Osorio Date of test: 10/13/2024 Type of Test: LT Holter (48 hrs to 7 days) Hospital #: 0 Location: [facility] : 1945 Age: 79 Sex: M Ref Physician(s): KAYE GOOD MD Interpreted by: Ravi Almonte MD Hook-Up Tech: [employer] Reason for Test: Hook-up Tech: [employer] Monitoring [employer] Monitor Serial#: HL7 Case#: [id number] Diary Instruction: Yes Hook-up Tech Comment: [id number] Date Time Hooked-up: 00:00:00 Monitor Returned: 10/25/2024 Recording Started: 10/13/2024 Recording Ended: 10/16/2024 Test Duration (hrs:min): 72 Period Analyzed (hrs:min): 68:22 Quality: STATISTICS: Events: 0 Total QRS: 820279 Vent. Beats: 610 Supravent. Beats: 04502 Avg HR: 63 Min HR: 47 at 10/16/2024 00:26:00 Max HR: 130 at 10/14/2024 15:00:00 Tachycardia (>100bpm): 5 episodes 0 min Bradycardia (<59bpm): 22 episodes 0 min Paced Beats: 0% VERTICULAR EVENTS: Isolated: 608 Bi/Trigeminy: 0/0 Couplets: 1 Total Runs: 0 Beats: Longest: 0 beats 0 bpm at Slowest: 0 beats 0 bpm at Fastest: 0 beats 0 bpm at SPRAVENTRICULAR EVENTS: Isolated: [id number] Couplets: 16 Total Runs: 0 Beats: Longest: [...] this report, open the patient's chart in [employer]. Under CHART REVIEW, click on the CARDIOLOGY tab. Then click on Event monitor or Extended/Fpc Holter Patch. The summary and interpretation are [...] to 7 days) Hospital #: 0 Location: [facility] : 1945 Age: 79 Sex: M Ref Physician(s): KAYE GOOD MD Interpreted by: Ravi Almonte MD Hook-Up Tech: [employer] Monitoring [employer] Reason for Test: Hook-up Tech: [employer] Monitoring Service Monitor Serial#: [id number] Case#: [id number] Diary Instruction: Yes Hook-up Tech Comment: [id number] Date Time Hooked-up: 00:00:00 Monitor Returned: 10/25/2024 Recording Started: 10/13/2024 Recording Ended: 10/16/2024 Test Duration (hrs:min): 72 Period Analyzed (hrs:min): 68:22 Quality: STATISTICS: Events: 0 Total QRS: 170668 Vent. Beats: 610 Supravent. Beats: 72023 Avg HR: 63 Min HR: 47 at 10/16/2024 00:26:00 Max HR: 130 at 10/14/2024 15:00:00 Tachycardia (>100bpm): 5 episodes 0 min Bradycardia (<59bpm): 22 episodes 0 min Paced Beats: 0% VERTICULAR EVENTS: Isolated: 608 Bi/Trigeminy: 0/0 Couplets: 1 Total Runs: 0 Beats: Longest: 0 beats 0 bpm at Slowest: 0 beats 0 bpm at Fastest: 0 beats 0 bpm at SPRAVENTRICULAR EVENTS: Isolated: [id number] Couplets: 16 Total Runs: 0 Beats: Longest: [...] this report, open the patient's chart in [employer]. Under CHART REVIEW, click on the CARDIOLOGY tab. Then click on Event monitor or Extended/Fpc Holter Patch. The summary and interpretation are [...] CHECK - IN OFFICE (10/13/2024 9:59 AM TRANSPORTATION CONSULTANT) Anatomical Region Laterality Modality Other 10/13/2024 2:00 AM TRANSPORTATION CONSULTANT Narrative 10/17/2024 8:05 PM TRANSPORTATION CONSULTANT Interpretation Summary: Anticoagulation (AC) Patient prescribed Warfarin [...] Advance Directives For more information, please contact: [phone] * Full Code (Latest Code Status on File) Date Activated Date Inactivated Comments 04/28/2020 2:49 PM 04/29/2020 5:16 PM Care Teams Valve Technician Relationship Specialty Start Date End Date Zoraida Mancia MD [address] [facility] [address] [place] [address] PCP - General Family Medicine 09/10/19
--- OUTSIDE RECORDS SUMMARY | 2024-12-15 15:00 | XMS_ITS | Clinical Summary ---
Author Organization [facility] [employer] Address [address] [facility] [place] [address] Care Team Providers Care Event Crew Technician Name Role Phone Zoraida Mancia MD Primary Care Provider Aris lynn Source Comments [facility] [employer],non-owned Affiliates and Associated Physician Practices is amultiple site organization consisting of ambulatory clinics and hospital sitesin [place], [place], [place] and [place]. This disclosure is being madepursuant to the Care Everywhere program and may not contain all information available regarding this patient. Last updated 18.[facility] [employer] Allergies No known active allergies Medications * [...] Immunizations Name Administration Dates Next Due Covid [employer] primary monoval ent 12+ yr 0.3mL Purple [...] topic MENINGOCOCCAL VACCINE Aged Out No radha konrad eligible based on patient's age to complete this topic Advance Directives * Full Code (Latest Code Status on File) Date Activated Date Inactivated Comments 02/02/2022 5:06 AM 02/03/2022 1:29 PM Care Teams Event Crew Technician Relationship Specialty Start Date End Date Zoraida Mancia MD [address] [place] [address] PCP - General Family Medicine 02/02/22
--- OUTSIDE RECORDS SUMMARY | 2024-12-15 15:00 | XMS_ITS | Clinical Summary ---
Author Organization [facility] Address [address] [place] [address] Care Team Providers Care Staff Genetic Counselor Name Role Phone Unavailable Primary Care Provider Unavailabl e Social History Tobacco Use Types Packs/Day Years Used Date Smoking Tobacco: Never Assessed Sex and Gender Information Value Date Recorded Sex Assigned at Not on file Legal Sex Male 11:55 AM GEAR NICKER Gender Identity Not on file Sexual Orientation [...]
--- OUTSIDE RECORDS SUMMARY | 2024-12-15 15:00 | XMS_ITS | Encounter Summary ---
Author Organization [facility] Healthcare Address [address] [place] [address] Care Team Providers Care Caddy/Caddie Supervisor Name Role Phone Zoraiad Mancia MD Primary Care Provider Encounter Details Date Type Department Care Team (Late st Contact Info) Description 04/29/2024 Orders Only [facility] [place] Information Management [address] [place] [address] Scanning, Provider Social History Tobacco Use Types [...] Sexual Orientation Straight 09/09/2019 9: 00 PM HEEL SANDER documented as of this encounter Plan of Treatment Not on file documented as of this encounter Procedures Procedure Name Priority Date/Time Associated Diagnosis Comments SCAN - LABS 04/29/2024 documented in this encounter Results * SCAN - LABS (04/29/2024) Provider Scanning Final Result documented in this encounter Visit Diagnoses Not on filedocumented in this encounter Care Teams Caddy/Caddie Supervisor Relationship Specialty Start Date End Date Zoraida Mancia MD [address] [facility] [place] [address] PCP - General Family Medicine 09/10/19 documented as of this encounter
--- OUTSIDE RECORDS SUMMARY | 2024-12-15 15:00 | XMS_ITS | Clinical Summary ---
Author Organization [facility] Address [address] [place] [address] Care Team Providers Care Clinical Practitioner Name Role Phone Zoraida Mancia MD Primary Care Provider Allergies No known active allergies Medications multivitamin tabletIndicatio ns:Vitamin Deficiency Prevention Take 1 tablet by mouth every morning Active warfarin (COUMADIN) 4 mg tablet TAKE 2 TABLETS DAILY 180 tablet 2 04/29/2024 Active metoprolol XL (TOPROL-XL) 25 mg extended release tabletIndicatio ns:NICM (nonischemic cardiomyopathy) (CMS/HCC) ([facility]) TAKE 1 TABLET DAILY 90 tablet 3 05/24/2024 Active Active Problems Problem Noted Date Diagnosed Date PVC (premature ventricular contraction) 10/13/20 24 NSVT (nonsustained ventricular tachycardia) 10/03 NICM (nonischemic cardiomyopathy) (CMS/HCC) 05/2023 Presence of permanent cardiac pacemaker 06/09/20 20 Overview (07/22/2023): Medtronic Clair Dual Pacemaker. Dx; Second Degree aVB. DOI 04/28/2020-Dr Thomson. Gisselle. Carelink remote. Device is followed @ [facility] device clinic. Heart block AV second degree 01/11/2020 Coronary artery disease invo lving [place] coronary artery of [place] heart without angina pectoris 06/16/2019 Atrial fibrillation (CMS/HCC) 03/10/2019 S/P mitral valve replacement 03/04/2019 Hyperlipidemia LDL goal <100 03/04/2019 Pre-diabetes 03/04/2019 Pulmonary hypertension 03/04/2019 Encounters Date Type Department Care Team Description 11/25/2024 Anticoagulation Visit [facility] Cardiology [address] [place] [address] [place] [phone] Anup Rock RN Atrial fibrillation, unspecified type (HCC) (Primary Dx) 11/01/2024 Anticoagulation Visit [facility] Cardiology [address] [place] [address] [place] [phone] Anup Rock RN Atrial fibrillation, unspecified type (HCC) (Primary Dx) 10/13/2024 11:30 AM FISHING BOAT CAPTAIN Ancillary Procedure [facility] [address] [place] [address] [address] [place] [address] PVC's (premature ventricular contractions) 10/13/2024 11:00 AM FISHING BOAT CAPTAIN Office Visit [address] [place] [address] Kaye Good NP PVC's (premature ventricular contractions) (Primary Dx); S/P mitral valve replacement; Atrial fibrillation, unspecified type (HCC); NICM (nonischemic cardiomyopathy) (CMS/HCC) (HCC); NSVT (nonsustained ventricular tachycardia) (HCC); PVC (premature ventricular contraction) 10/13/2024 10:30 AM FISHING BOAT CAPTAIN Ancillary Procedure [address] [place] [phone] Heart block AV second degree; Fitting and adjustment of cardiac pacemaker 09/28/2024 Anticoagulation Visit [facility] Cardiology [address] [place] [address] [place] [phone] Anup Rock RN Atrial fibrillation, unspecified type [...] Sexual Orientation Straight 09/09/2019 9: 00 PM FISHING BOAT CAPTAIN Obstetrics History Last Filed Vital Signs Vital Sign Reading Time Taken Comments Blood Pressure 153/87 10/13/2024 10:19 AM FISHING BOAT CAPTAIN Pulse 72 10/13/2024 10:19 AM FISHING BOAT CAPTAIN Temperature 36.4 C (97.5 F) 08/17/2020 2:03 PM CDT Respiratory Rate 18 04/29/2020 8:00 AM CDT Oxygen Saturation 97% 10/13/2024 10:19 AM FISHING BOAT CAPTAIN Inhaled Oxygen Concentration - - Weight 85.3 kg (188 lb) 10/13/2024 10:19 AM FISHING BOAT CAPTAIN Height 180.3 cm (5' 11 ) 10/13/2024 10:19 AM FISHING BOAT CAPTAIN Body Mass Index 26.22 10/13/2024 10:19 AM FISHING BOAT CAPTAIN Plan of Treatment Health Maintenance Due Date [...] 06/16/2023, 11/2017 Medical Devices Implanted Type Area Microsoft Systems Engineer Device Identifier Shelf Expiration Date Model / Serial / Lot Medtronic Cardiac Rhythm Mgmt 5076-52 Capsurefix Novus 6.2fr 2mm 52cm Bipolar Screw In Implantable Latex Free - [id number] - [id number] Implanted:Qty: 1 on 04/28/2020 by Benoit Thomson MD at [facility] Lead Left: Heart Medtronic Inc 01/05/2022 5076-52 / [id number] / Medtronic Cardiac Rhythm Mgmt 5076-45 Capsurefix Novus 6.2fr 2mm 45cm Bipolar Screw In Implantable - [id number] - [id number] Implanted:Qty: 1 on 04/28/2020 by Benoit Thomson MD at [facility] Lead Left: Heart Medtronic Inc 01/09/2022 5076-45 / [id number] / Medtronic Cardiac Rhythm Mgmt [id number] [place] Wirelessly Pacemaker Cardiac - [id number] - [id number] Implanted:Qty: 1 on 04/28/2020 by Benoit Thomson MD at [facility] Pacemaker Left: Heart Medtronic Inc 07/31/2021 W1DR01 / [id number] / Procedures Procedure Name Priority Date/Time Associated Diagnosis Comments PROTIME-INR Routine 11/24/2024 PROTIME-INR Routine 10/29/2024 EXTENDED/LONG TERM HOLTER PATCH (>48 HOURS UP TO 7 DAYS) Routine 10/13/2024 11:59 AM FISHING BOAT CAPTAIN PVC's (premature ventricular contractions) DEVICE CHECK - IN OFFICE Routine 10/13/2024 9:59 AM FISHING BOAT CAPTAIN Heart block AV second degree Fitting and [...] ORDERABLES Aimee l Result Performing Organization Address City/[facility]/ZIP Co de Phone Number EXTERNAL LAB * Extended/Care Home Holter Patch (>48 hours up to 7 days) (10/13/2024 11:59 AM FISHING BOAT CAPTAIN) Anatomical Region Laterality Modality Electrocardiogra phy 10/13/2024 11:3 0 AM FISHING BOAT CAPTAIN Narrative 10/25/2024 10:25 AM FISHING BOAT CAPTAIN Patient name: Leroy Osorio Date of test: 10/13/2024 Type of Test: LT Holter (48 hrs to 7 days) Hospital #: 0 Location: [facility] : 1945 Age: 79 Sex: M Ref Physician(s): KAYE GOOD MD Interpreted by: Ravi Almonte MD Hook-Up Tech: [employer] Reason for Test: Hook-up Tech: [employer] Monitoring Service Monitor Serial#: [id number] Case#: [id number] Diary Instruction: Yes Hook-up Tech Comment: [id number] Date Time Hooked-up: 00:00:00 Monitor Returned: 10/25/2024 Recording Started: 10/13/2024 Recording Ended: 10/16/2024 Test Duration (hrs:min): 72 Period Analyzed (hrs:min): 68:22 Quality: STATISTICS: Events: 0 Total QRS: 824530 Vent. Beats: 610 Supravent. Beats: 58883 Avg HR: 63 Min HR: 47 at 10/16/2024 00:26:00 Max HR: 130 at 10/14/2024 15:00:00 Tachycardia (>100bpm): 5 episodes 0 min Bradycardia (<59bpm): 22 episodes 0 min Paced Beats: 0% VERTICULAR EVENTS: Isolated: 608 Bi/Trigeminy: 0/0 Couplets: 1 Total Runs: 0 Beats: Longest: 0 beats 0 bpm at Slowest: 0 beats 0 bpm at Fastest: 0 beats 0 bpm at SPRAVENTRICULAR EVENTS: Isolated: [id number] Couplets: 16 Total Runs: 0 Beats: Longest: [...] this report, open the patient's chart in [employer]. Under CHART REVIEW, click on the CARDIOLOGY tab. Then click on Event monitor or Extended/Care Home Holter Patch. The summary and interpretation are [...] Hospital #: 0 Location: [facility] : 1945 Age: 79 Sex: M Ref Physician(s): KAYE GOOD MD Interpreted by: Ravi Almonte MD Hook-Up Tech: [employer] Monitoring [employer] Reason for Test: Hook-up Tech: [employer] Monitoring Service Monitor Serial#: [id number] Case#: [id number] Diary Instruction: Yes Hook-up Tech Comment: [id number] Date Time Hooked-up: 00:00:00 Monitor Returned: 10/25/2024 Recording Started: 10/13/2024 Recording Ended: 10/16/2024 Test Duration (hrs:min): 72 Period Analyzed (hrs:min): 68:22 Quality: STATISTICS: Events: 0 Total QRS: 509970 Vent. Beats: 610 Supravent. Beats: 64970 Avg HR: 63 Min HR: 47 at 10/16/2024 00:26:00 Max HR: 130 at 10/14/2024 15:00:00 Tachycardia (>100bpm): 5 episodes 0 min Bradycardia (<59bpm): 22 episodes 0 min Paced Beats: 0% VERTICULAR EVENTS: Isolated: 608 Bi/Trigeminy: 0/0 Couplets: 1 Total Runs: 0 Beats: Longest: 0 beats 0 bpm at Slowest: 0 beats 0 bpm at Fastest: 0 beats 0 bpm at SPRAVENTRICULAR EVENTS: Isolated: [id number] Couplets: 16 Total Runs: 0 Beats: Longest: [...] this report, open the patient's chart in [employer]. Under CHART REVIEW, click on the CARDIOLOGY tab. Then click on Event monitor or Extended/Care Home Holter Patch. The summary and interpretation are [...] CHECK - IN OFFICE (10/13/2024 9:59 AM FISHING BOAT CAPTAIN) Anatomical Region Laterality Modality Other 10/13/2024 2:00 AM FISHING BOAT CAPTAIN Narrative 10/17/2024 8:05 PM FISHING BOAT CAPTAIN Interpretation Summary: Anticoagulation (AC) Patient prescribed Warfarin [...] LAB from Last 3 Months Insurance MEDICARE [employer] MEDICARE FOR [facility] [place] [address] MEDICARE [facility] Address: [address] [address] [place] [address] FOR LIFE Advance Directives For more information, please contact: [phone] * Full Code (Latest Code Status on File) Date Activated Date Inactivated Comments 04/28/2020 2:49 PM 04/29/2020 5:16 PM Care Teams Clinical Practitioner Relationship Specialty Start Date End Date Zoraida Mancia MD [address] [place] [address] PCP - General Family Medicine 09/10/19
--- OUTSIDE RECORDS SUMMARY | 2024-12-15 15:00 | XMS_ITS | Encounter Summary ---
Author Organization [facility] Healthcare Address [address] [place] [address] Care Team Providers Care Marketing Finance Specialist Name Role Phone Zoraida Mancia MD Primary Care Provider Encounter Details Date Type Department Care Team (Late st Contact Info) Description 02/25/2024 Orders Only [facility] [place] Information Management [address] [place] [address] Scanning, Provider Social History Tobacco Use Types [...] Sexual Orientation Straight 09/09/2019 9: 00 PM RN ANESTHESIOLOGY documented as of this encounter Plan of Treatment Not on file documented as of this encounter Procedures Procedure Name Priority Date/Time Associated Diagnosis Comments SCAN - LABS 02/25/2024 documented in this encounter Results * SCAN - LABS (02/25/2024) Provider Scanning Final Result documented in this encounter Visit Diagnoses Not on filedocumented in this encounter Care Teams Marketing Finance Specialist Relationship Specialty Start Date End Date Zoraida Mancia MD [address] [facility] [address] [facility] [address] [place] [address] PCP - General Family Medicine 09/10/19 documented as of this encounter
--- OUTSIDE RECORDS SUMMARY | 2024-12-15 15:00 | XMS_ITS | Encounter Summary ---
Author Organization [facility] Healthcare Address [address] [place] [address] Care Team Providers Care Handle Maker Name Role Phone Zoraida Mancia MD Primary Care Provider Encounter Details Date Type Department Care Team (Late st Contact Info) Description 12/27/2023 Orders Only [facility] Health Information Management [address] [place] [address] Scanning, Provider Social History Tobacco Use Types [...] Sexual Orientation Straight 09/09/2019 9: 00 PM PERSONAL BANKING ADVISOR documented as of this encounter Plan of Treatment Not on file documented as of this encounter Procedures Procedure Name Priority Date/Time Associated Diagnosis Comments SCAN - LABS 12/27/2023 documented in this encounter Results * SCAN - LABS (12/27/2023) Provider Scanning Final Result documented in this encounter Visit Diagnoses Not on filedocumented in this encounter Care Teams Handle Maker Relationship Specialty Start Date End Date Zoraida Mancia MD [address] [facility] [address] [place] [address] PCP - General Family Medicine 09/10/19 documented as of this encounter
--- OUTSIDE RECORDS SUMMARY | 2024-12-15 15:00 | XMS_ITS | Referral Summary ---
Author Organization [facility] [employer] Address [address] [place] [address] Care Team Providers Care Human Resources Mgr Name Role Phone Zoraida Mancia MD Primary Care Provider Aris lynn Source Comments [facility] [employer],non-owned Affiliates and Associated Physician Practices is amultiple site organization consisting of ambulatory clinics and hospital sitesin [place], [place], [place] and [place]. This disclosure is being madepursuant to the Care Everywhere program and may not contain all information available regarding this patient. Last updated 18.[facility] [employer] Allergies No known active allergies Medications * [...] Immunizations Name Administration Dates Next Due Covid eTobb primary monoval ent 12+ yr 0.3mL Purple [...] 5:06 AM 02/03/2022 1:29 PM Care Teams Human Resources Mgr Relationship Specialty Start Date End Date Zoraida Mancia MD [address] [place] [address] PCP - General Family Medicine 02/02/22
--- OUTSIDE RECORDS SUMMARY | 2024-12-15 15:00 | XMS_ITS | Patient Health Summary ---
Author Organization [facility] Address [address] [place] [address] Care Team Providers Care Entry Level Manufacturing Engineer Name Role Phone Zoraida Mancia MD Primary Care Provider Aris lynn Note from [facility],non-owned Affiliates and Associated Physician Practices is amultiple site organization consisting of ambulatory clinics and hospital sitesin [place], [place], [place] and [place]. This disclosure is being madepursuant to the Care Everywhere program and may not contain all information available regarding this patient. Last updated 18.[facility] [employer] Allergies No known active allergies Medications * [...] 02/02/2022 12:37 AM CDT Procedures * CYTOLOGY NON-MICROBIOLOGICAL LAB TECHNICIAN PANEL (STL)(Performed 02/21/2022) Performed for Left facial [...] W AUTO DIFFERENTIAL(Performed 02/02/2022) Results * CYTOLOGY NON-MICROBIOLOGICAL LAB TECHNICIAN PANEL (STL) (02/21/2022 12:06 PM CDT) Case Report Cytology Non Sponge Buffer Report Case: [id number] Authorizing Provider: Michelle Abraham MD Collected: 02/21/2022 12:06 PM Ordering Location: [facility] Received: 02/21/2022 12:55 PM Pathologist: Daljit Morales MD Specimen: Cyst Fluid, LEFT parotid cystic/solid mass 02/22/2022 2:49 PM CDT [facility] Final Diagnosis Parotid, left, m ass , ultrasound-guided needle aspiration: 1. Less than adequate for evaluation 2. Excess obscuring inflammation and necrotic debris. 02/22/2022 2:49 PM CDT [facility] Clinical History Left parotid inflamed mass. 02/22/2022 2:49 PM CDT [facility] Gross Description 3 mL of cloudy pink fluid are received from which 1 thin prep and cell block are prepared for cytologic evaluation. 02/22/2022 2:49 PM CDT [facility] Microscopic Description Scant degenerate epithelioid cells are present in a background of excess necrotic debris and polymorphous inflammatory cells. See [id number] for additional information. 02/22/2022 2:49 PM CDT [facility] Disclaimer All histochemical and/or immunohistochemical results are interpreted with controls that demonstrate appropriate staining reactions before reporting results. Note on use of immunocytochemistry reagents: This test was developed and its performance characteristic determined by [facility], Department of Laboratory Medicine. It has not [...] interpreted with caution. 02/22/2022 2:49 PM CDT [facility] Embedded Images 02/22/2022 2:49 PM CDT [facility] Pathology/Cytolo gy CYST FLUID SPECIMEN / Unknown Collection / Unknown 02/21/2022 12:06 PM CDT 02/21/2022 12:55 PM CDT Michelle Abraham MD LAB - PATHOLOGY/C YTOLOGY ORDERABLES Performing Organization Address City/State/[facility] Co de Phone Number [facility] [address] [place] [address] * US FINE NEEDLE ASPIRATION [...] performed/supervised the entire procedure. *Reading Radiologist: Tracy Moreon on 03/17/2022 at 11:39 PM Michelle Abraham MD US ORDERABLES * FINE NEEDLE ASPIRATION (STL) (02/21/2022 11:25 AM CDT) Case Report Fine Needle Aspiration Report Case: [id number] Authorizing Provider: Michelle Abraham MD Collected: 02/21/2022 11:25 AM Ordering Location: [facility] Received: 02/21/2022 01:33 PM Pathologist: Daljit Morales MD Specimen: Neck, Parotid 02/22/2022 2:57 PM CDT [facility] Final Diagnosis Parotid, left, ultrasound-guided fine-needle aspiration: 1. Satisfactory for evaluation 2. Prominent polymorphous inflammatory cell infiltrate with minor component of epithelial cells present (see microscopic) 02/22/2022 2:57 PM CDT [facility] Clinical History 76-year-old man recently noticed an enlarging nodule in his left cheek that a couple shaving. Evaluation by CT scan showed, I mpression: Necrotic left parotid mass, extensive parotid and superficial inflammation. Consider right parotitis, parotid gland cancer, necrotic lymph node, abscess. Evaluation by ENT identified a nontender left parotid mass and favored inflamed Warthin's tumor. 02/22/2022 2:57 PM CDT [facility] Gross Description From 3 ultrasound-guided fine [...] at 11:22 AM 02/22/2022 2:57 PM CDT [facility] Microscopic Description Review of the cell [...] more definitive diagnosis. 02/22/2022 2:57 PM CDT [facility] Disclaimer All histochemical and/or immunohistochemical results are interpreted with controls that demonstrate appropriate staining reactions before reporting results. Note on use of immunocytochemistry reagents: This test was developed and its performance characteristic determined by [facility], Department of Laboratory Medicine. It has not [...] interpreted with caution. 02/22/2022 2:57 PM CDT [facility] Embedded Images 02/22/2022 2:57 PM CDT [facility] Pathology/Cytolo gy ENTIRE NECK / Unknown 02/21/2022 11:25 AM CDT 02/21/2022 1:33 PM CDT Michelle Abraham MD LAB - PATHOLOGY/C YTOLOGY ORDERABLES [facility] [address] [place] [address] * CULTURE FUNGUS OTHER+FUNGUS SMEAR [...] HOSPITAL MICROBIOLOGY [address] [place] [address], [facility] [phone] * (ABNORMAL) CULTURE TISSUE+GRAM STAIN (02/21/2022 11:10 [...] - MICROBIOLOG Y ORDERABLES Performing Organization Address City/[facility]/ZIP Co de Phone Number [facility] [address] [place] [address], [facility] [phone] * CULTURE ANAEROBE (02/21/2022 11:10 AM CDT) Culture No anaerobic organisms isolated SUHAS 02/27/2022 9:50 AM CDT [facility] MICRO[facility]OLOG[facility] Microbiology MASS OF PAROTID GLAND / Unknown Collection / Unknown 02/21/2022 11:10 AM CDT 02/21/2022 12:29 PM CDT Michelle Abraham MD LAB - MICROBIOLOG Y ORDERABLES [facility] MICROBIOLOG[facility] [address] [place] [address] [phone] * (ABNORMAL) PT-INR (02/03/2022 2:47 AM CDT) Only the most recent of2 resultswithin the time period is included. [facility] PT 19.4(H) 12.1 - 14.8 sec 02/03/2022 4:25 AM CDT [facility] INR 1.6(H) 0.9 - 1.1 02/03/2022 4:25 AM CDT [facility] Blood BLOOD SPECIMEN / Unknown Lab Venipuncture / Unknown 02/03/2022 2:47 AM CDT 02/03/2022 3:36 AM CDT [facility] - 02/03/2022 4:25 AM CDT Conventional Warfarin Anticoagulant Therapy: INR Reference Range: 2.0-3.0 Intensive Warfarin Anticoagulant Therapy: INR Reference Range: 2.5-3.5 Guero Colorado DO LAB - COAGULATION OR DERABLES Performing Organization Address [facility]/State/[facility] Co de Phone Number [facility] [address] [place] [address] * (ABNORMAL) CBC W/O DIFFERENTIAL (02/03/2022 2:47 AM CDT) [facility] WBC 10.5 4.4 - 10.7 x10E9/L 02/03/2022 3:54 AM CDT [facility] RBC 3.86 3.80 - 5.40 x10E12/L 02/03/2022 3:54 AM CDT [facility] Hemoglobin 12.6 12.0 - 17.6 gm/dL 02/03/2022 3:54 AM CDT [facility] Hematocrit 38.4 35.2 - 51.7 % 02/03/2022 3:54 AM CDT [facility] MCV 99.5(H) 80.7 - 98.3 fl 02/03/2022 3:54 AM CDT [facility] MCH 32.6 26.7 - 34.0 pg 02/03/2022 3:54 AM CDT [facility] MCHC 32.8 30.8 - 35.9 gm/dL 02/03/2022 3:54 AM CDT [facility] Platelet Count 181 153 - 416 x10E9/L 02/03/2022 3:54 AM CDT [facility] RDW-CV 12.7 12.1 - 14.9 % 02/03/2022 3:54 AM CDT [facility] MPV 9.3(L) 9.4 - 12.9 fl 02/03/2022 3:54 AM CDT [facility] Blood BLOOD SPECIMEN / Unknown Lab Venipuncture / Unknown 02/03/2022 2:47 AM CDT 02/03/2022 3:37 AM CDT Guero Colorado DO LAB - HEMATOLOGY ORD ERABLES [facility] [address] [place] [address] * (ABNORMAL) COMPREHENSIVE METABOLIC PANEL (02/03/2022 2:47 AM CDT) Only the most recent of2 resultswithin the time period is included. Glucose 224(H) 70 - 105 mg/dL 02/03/2022 4:21 AM [facility] Sodium 140 136 - 145 mmol/L 02/03/2022 4:21 AM [facility] Potassium 4.5 3.5 - 5.1 mmol/L 02/03/2022 4:21 AM [facility] Chloride 106 98 - 107 mmol/L 02/03/2022 4:21 AM [facility] CO2 25 23 - 31 mmol/L 02/03/2022 4:21 AM [facility] Calcium 9.1 8.4 - 10.4 mg/dL 02/03/2022 4:21 AM [facility] Anion Gap 9 8 - 18 mmol/L 02/03/2022 4:21 AM [facility] BUN 26(H) 8.4 - 25.7 mg/dL 02/03/2022 4:[facility] Creatinine 0.98 0.72 - 1.25 mg/dL 02/03/2022 4:21 AM [facility] Alkaline Phosphatase 72 40 - 150 U/L 02/03/2022 4:21 AM CDT [facility] ALT 12 0 - 61 U/L 02/03/2022 4:21 AM CDT [facility] AST 14 5 - 34 U/L 02/03/2022 4:21 AM CDT [facility] Protein Total 6.9 6.4 - 8.3 gm/dL 02/03/2022 4:21 AM CDT [facility] Albumin 3.5 3.2 - 4.6 gm/dL 02/03/2022 4:21 AM CDT [facility] Bilirubin Total 2.0(H) 0.2 - 1.2 mg/dL 02/03/2022 4:21 AM CDT [facility] eGFR by CKD-EPI 80(L) >=90 mL/min/1.7 3 m2 02/03/2022 4:21 AM CDT [facility] Blood BLOOD SPECIMEN / Unknown Lab Venipuncture / Unknown 02/03/2022 2:47 AM CDT 02/03/2022 3:36 AM CDT [facility] - 02/03/2022 4:21 AM CDT eGFR result was calculated using the updated CKD-EPI Creatinine Equations (2020). Prior to go live 2021 the eGFR was calculated using the MDRD calculation. Please note Reference Range change. Guero Colorado DO LAB - CHEMISTRY YECENIA RÍOS [facility] [address] [place] [address] * (ABNORMAL) CBC W AUTO DIFFERENTIAL (02/02/2022 5:39 AM CDT) WBC 9.2 4.4 - 10.7 x10E9/L 02/02/2022 6:00 AM CDT [facility] WBC Corrected 02/02/2022 6:00 AM CDT [facility] RBC 3.93 3.80 - 5.40 x10E12/L 02/02/2022 6:00 AM CDT [facility] Hemoglobin 12.7 12.0 - 17.6 gm/dL 02/02/2022 6:00 AM CDT [facility] Hematocrit 37.6 35.2 - 51.7 % 02/02/2022 6:00 AM [facility] MCV 95.7 80.7 - 98.3 fl 02/02/2022 6:00 AM [facility] MCH 32.3 26.7 - 34.0 pg 02/02/2022 6:00 AM [facility] MCHC 33.8 30.8 - 35.9 gm/dL 02/02/2022 6:00 AM [facility] Platelet Count 167 153 - 416 x10E9/L 02/02/2022 6:00 AM [facility] RDW-CV 12.9 12.1 - 14.9 % 02/02/2022 6:00 AM [facility] MPV 8.9(L) 9.4 - 12.9 fl 02/02/2022 6:00 AM [facility] Neutrophils % 73.7(H) 44.0 - 73.0 % 02/02/2022 6:00 AM [facility] Lymphocytes % 15.2(L) 20.0 - 43.0 % 02/02/2022 6:00 AM [facility] Monocytes % 9.7 5.0 - 13.0 % 02/02/2022 6:00 AM [facility] Eosinophils % 0.8 0.0 - 6.0 % 02/02/2022 6:00 AM [facility] Basophils % 0.4 0.0 - 2.0 % 02/02/2022 6:00 AM [facility] Immature Granulocytes 0.2 0 - 1 % 02/02/2022 6:00 AM [facility] Neutrophil Absolute 6.79 2.01 - 7.14 x10E9/L 02/02/2022 6:00 AM [facility] Lymphocytes Absolute 1.40 1.07 - 3.94 x10E9/L 02/02/2022 6:00 AM [facility] Monocytes Absolute 0.89 0.26 - 1.07 x10E9/L 02/02/2022 6:00 AM [facility] Eosinophils Absolute 0.07 0 - 0.47 x10E9/L 02/02/2022 6:00 AM [facility] Basophils Absolute 0.04 0 - 0.08 x10E9/L 02/02/2022 6:00 AM CDT [facility] Immature Granulocytes Absolute 0.02 0.00 - 0.06 x10E9/L 02/02/2022 6:00 AM CDT [facility] nRBC Auto 0 /100 WBC 02/02/2022 6:00 AM CDT [facility] Blood BLOOD SPECIMEN / Unknown Lab Venipuncture / Unknown 02/02/2022 5:39 AM CDT 02/02/2022 5:46 AM CDT Guero Colorado DO LAB - HEMATOLOGY ORD ERABLES Performing Organization Address City/[facility]/ZIP Co de Phone Number [facility] [address] [place] [address] * LACTIC ACID BLOOD (02/02/2022 5:39 AM CDT) Lactic Acid 0.8 <=2 mmol/L 02/02/2022 6:15 AM CDT [facility] Blood BLOOD SPECIMEN / Unknown Lab Venipuncture / Unknown 02/02/2022 5:39 AM CDT 02/02/2022 5:47 AM CDT Guero Colorado DO LAB - CHEMISTRY ORDE RABLES [facility] [address], [place] [id number] Care Teams Entry Level Manufacturing Engineer Relationship Specialty Start Date End Date Zoraida Mancia MD [address] [place] [address] PCP - General Family Medicine 02/02/22
== END 2024-12-15 14:55 | disposition home or self-care (01) ==
LOC: ANHIMG 14:57
PROVIDERS: PCP Family Medicine; Visit Provider Nurse Practitioner Family
DX: N20.0 Calculus of kidney (principal); N21.0 Calculus in bladder; K40.90 Unilateral inguinal hernia, without obstruction or gangrene, not specified as recurrent
CPT/HCPCS: 74176

== ENCOUNTER 2024-12-24 11:22 | Outpatient (RCR) | payer MEDICARE, OTHER, SELFPAY ==
[2024-10-29 16:23] LABS: INR 2.6; Prothrombin Time 28.3 Seconds (11.1-14.7)
[2024-11-24 11:01] LABS: INR 2.1; Prothrombin Time 24.2 Seconds (11.1-14.7)
[2024-12-24 12:01] LABS: INR 2.3; Prothrombin Time 25.6 Seconds (11.1-14.7)
== END 2025-01-27 23:59 | disposition home or self-care (01) ==
LOC: ANHLAB 11:22
PROVIDERS: PCP Family Medicine; Visit Provider Internal Medicine Cardiovascular Disease
DX: I48.91 Unspecified atrial fibrillation (principal)
CPT/HCPCS: 36415; 85610

== ENCOUNTER 2025-01-03 08:14 | Outpatient (CLI) | payer MEDICARE, OTHER, SELFPAY | END 2025-01-03 08:15 | disposition home or self-care (01) | PROVIDERS: Visit Provider Urology | DX: I48.91 Unspecified atrial fibrillation (principal); I44.0 Atrioventricular block, first degree | CPT/HCPCS: 93005 ==

== ENCOUNTER 2025-01-13 00:45 | Day surgery (SDC) | payer MEDICARE, OTHER, SELFPAY ==
--- NOTE | 2024-12-24 13:09 | PC.NURSE ---
Report to the Outpatient Waiting Room, entrance under the green pavilion located off [facility], at time _6:15 AM on date _01/13/25 . Planned Procedure Time: ___8:15 AM .? Time changes happen often and if your time is changed the preop area will call you the afternoon before. - You and your visitor will be asked to self-screen and do not enter if you have any COVID symptoms. Please call surgeon if you need to reschedule. - A mask is optional within the hospital at this time. Patients may have clear liquids (water, carbonated beverages, clear teas, apple juice) until 3 hours prior to surgery ( 5:15 AM) with a maximum of 20 ounces. - No food from midnight until time of surgery and no smoking, or chewing tobacco (or any form of nicotine). No chewing gum, candy or mints. - Take only the following medications with a SIP of water on the morning of surgery: ____NONE DO NOT STOP ANY OF YOUR OTHER PRESCRIPTION MEDICATIONS PRIOR TO SURGERY EXCEPT THE FOLLOWING Hold all vitamins and supplements for 3 days per anesthesiologist. LAST DOSE 01/09/25 Medications to discontinue per physician WARFARIN [address] JOLLEY/ WAITING FOR DR PEARCE'S APPROVAL Date to take last dose___01/05/25 Please no make-up, nail albanian, hairspray, perfume, deodorant, or body powder the day of surgery.? No jewelry (including any body piercings) or valuables the day of surgery, leave them at home.? Please take a shower or bath the night before, or the morning of, surgery with an antibacterial soap.? Wear comfortable, loose fitting clothing.? Children are encouraged to wear pajamas. - Jewelry must be removed prior to entering the operating room.? Rings and piercings that are not removed may be cut off. - The hospital will not accept responsibility for valuables.? - Please leave all valuables, including medications, at home the day of surgery. If you are going home after surgery, a licensed bung driver must drive you home.? - NO public transportation without another adult if you receive anesthesia. - We recommend that an adult stay with you for 24 hours following discharge. - We also recommend that you do not drive, make important decision, drink alcoholic beverages, or take any drugs that were not prescribed by your health care provider for at least 24 hours after your discharge time. For Pediatric surgeries, we recommend two adults accompany the child home. Follow any additional instructions given to you from your surgeon. Telephone instructions given to ___PATIENT and asked if any additional questions and then verbalized understanding. Patient advised to call surgeon office or pre surgery nurse liaison [phone] if any additional questions.
[2024-12-24 13:34] VITALS: BMI 25.4
--- NOTE | 2024-12-31 08:18 | P.HP_ITS ---
History of Present Illness History of Present Illness Consent: Risks, benefits, and alternatives have been discussed and questions answered. Patient agrees to proceed with procedure. Chief complaint: bladder stone, left kidney stone Narrative: Leroy Osorio is a 79 year old male known to both myself and our nurse practitioners with a history of urolithiasis and BPH. In early November 2024 he had an episode of gross hematuria. CT imaging demonstrates an a and obstructing 6 mm left distal ureteral stone in a 1.6 cm bladder calculus. After discussion of options he has elected for simultaneous cystoscopy with laser lithotripsy of bladder calculus and left ureteroscopy with stone extraction, possible laser lithotripsy, retrograde pyelogram and stent placement PMF Past Medical History Medical History Anticoagulated by anticoagulation treatment Arthritis (Unknown) Atrial fibrillation once after MVR Coronary artery disease Degenerative arthritis of cervical spine (~1998) Hematuria History of nephrolithiasis HLD (hyperlipidemia) HTN (hypertension) Mitral valve prolapse Obstruction of left ureteropelvic junction due to stone Pacemaker Surgical History Surgical History History of cataract extraction (~12/2014) History of cataract extraction (~03/2015) History of detached retina repair (~02/2006) History of detached retina repair (~01/1996) History of total left knee replacement (~12/2007) History of total right knee replacement (~12/2009) Hx of mitral valve replacement (~08/13/17) S/P mitral valve repair Total knee replacement status Family History Family History Mother Cancer lung cancer Father Lung cancer Social History Social History Social History: Smoking status: Never smoker Tobacco type: cigars Second hand tobacco smoke exposure: No Additional smoking assessment comments: SMOKES CIGARS OCC (average 3 a week) Alcohol intake: current Drinks per week: 3 Alcohol use details: wine Substance use: never Substance use type: does not use Lack of Transportation: No Lack of Food: Never True Current Housing: I Have Housing Concerned About Future Housing: No Difficulty Paying Gas/Electric Bills: No Difficulty Paying for Meds: No Currently Unemployed: YES Education: Associate Degree Difficulty w/ Childcare or Family Care: No Living arrangements: with family Occupation/Education: retired Gender identity (if verbalized by the patient): Male Sexual Orientation (if Verbalized by the Patient): Straight or Heterosexual Spiritual care concerns: No Meds Home Medications and Allergies Home Medications ?Medication ?Instructions ?Recorded ?Confirmed ?Type warfarin 4 mg tablet 8 mg PO QPM 07/15/22 12/24/24 History multivitamin 1 tablet PO DAILY 10/01/22 12/24/24 History metoprolol succinate 25 mg 25 mg PO QPM 01/08/23 12/24/24 History tablet,extended release 24 hr (Toprol XL) Allergies Allergy/AdvReac Type Severity Reaction Status Date / Time No Known Allergies Allergy Verified 12/24/24 13:11 Exam Const: General: no acute distress Resp: Effort & Inspection: normal respiratory effort GI: Inspection: non-distended GI Palp: No abdominal tenderness and No Guarding due to palpation present (GI) Auscultation: normal bowel sounds Assessment and Plan Assessment and plan (1) Left ureteral stone: Code(s): N20.1 - Calculus of ureter Status: Acute (2) Bladder calculus: Code(s): N21.0 - Calculus in bladder Status: Acute Assessment and Plan: * Cystoscopy, laser lithotripsy bladder stone * Left ureteroscopy with ureteral stone extraction and possible laser lithotripsy, retrograde pyelogram and stent placement
[2025-01-13] VITALS (8 sets, daily range): BP systolic 122–160; BP diastolic 74–95; PULSE 66–74; RESP 12–20; TEMP 36.6; O2SAT 95–100
--- NOTE | ~2025-01-13 | XR_ITS ---
EXAMINATION: XR fluoroscopy no charge DATE: 01/13/2025 09:46 INDICATION: Left ureteral stone. TECHNIQUE: 4 intraoperative fluoroscopic views of the abdomen and pelvis were obtained. I was not pre sent. Fluoroscopy exposure time was 8 seconds. COMPARISON: CT abdomen and pelvis 12/15/2024 FINDINGS: Images demonstrate a catheter in the left ureter. There is a stone in the bladder. IMPRESSION: 1. Bladder stone. Reviewed, dictated and finalized at location B. IMPRESSION: 1. Bladder stone.
--- OUTSIDE RECORDS SUMMARY | 2025-01-13 00:48 | XMS_ITS | Encounter Summary ---
Author Organization [facility] Healthcare Address [address] [place] [address] Care Team Providers Care Shield Installer Name Role Phone Zoraida Mancia MD Primary Care Provider Encounter Details Date Type Department Care Team (Late st Contact Info) Description 02/25/2024 Orders Only [facility] Health Information Management [address] [place] [id number] Scanning, Provider Social History Tobacco Use Types [...] Sexual Orientation Straight 09/09/2019 9: 00 PM DATA INTEGRITY ANALYST documented as of this encounter Plan of Treatment Not on file documented as of this encounter Procedures Procedure Name Priority Date/Time Associated Diagnosis Comments SCAN - LABS 02/25/2024 documented in this encounter Results * SCAN - LABS (02/25/2024) Provider Scanning Final Result documented in this encounter Visit Diagnoses Not on filedocumented in this encounter Care Teams Shield Installer Relationship Specialty Start Date End Date Zoraida Mancia MD [address] [facility] [address] [facility] [address] [place] [address] PCP - General Family Medicine 09/10/19 documented as of this encounter
--- OUTSIDE RECORDS SUMMARY | 2025-01-13 00:48 | XMS_ITS | Patient Health Summary ---
Author Organization [facility] Address [address] [place] [address] Care Team Providers Care Facer Operator Name Role Phone Zoraida Mancia MD Primary Care Provider Aris lynn Note from [facility],non-owned Affiliates and Associated Physician Practices is amultiple site organization consisting of ambulatory clinics and hospital sitesin [place], [place], [place] and [place]. This disclosure is being madepursuant to the Care Everywhere program and may not contain all information available regarding this patient. Last updated 18.[facility] Allergies No known active allergies Medications * [...] 12:37 AM CDT Height 180.3 cm (5' 11) 02/02/2022 12:37 AM CDT Body Mass Index 25.68 02/02/2022 12:37 AM CDT Procedures * CYTOLOGY NON-SKATING CARHOP PANEL (STL)(Performed 02/21/2022) Performed for Left facial [...] W AUTO DIFFERENTIAL(Performed 02/02/2022) Results * CYTOLOGY NON-SKATING CARHOP PANEL (STL) (02/21/2022 12:06 PM CDT) Case Report Cytology Non Helicopter Repairer Report Case: [id number] Authorizing Provider: Michelle Abraham MD Collected: 02/21/2022 12:06 PM Ordering Location: [facility] Received: 02/21/2022 12:55 PM Pathologist: Daljit Morales MD Specimen: Cyst Fluid, LEFT parotid cystic/solid mass 02/22/2022 2:49 PM CDT [facility] Final Diagnosis Parotid, left, m ass , ultrasound-guided needle aspiration: 1. Less than adequate for evaluation 2. Excess obscuring inflammation and necrotic debris. 02/22/2022 2:49 PM CDT [facility] Clinical History Left parotid inflamed mass. 02/22/2022 2:49 PM CDT [facility] Gross Description 3 mL of cloudy pink fluid are received from which 1 thin prep and cell block are prepared for cytologic evaluation. 02/22/2022 2:49 PM CDT [facility] Microscopic Description Scant degenerate epithelioid cells are present in a background of excess necrotic debris and polymorphous inflammatory cells. See [id number] for additional information. 02/22/2022 2:49 PM CDT [facility] Disclaimer All histochemical and/or immunohistochemical results are interpreted with controls that demonstrate appropriate staining reactions before reporting results. Note on use of immunocytochemistry reagents: This test was developed and its performance characteristic determined by [facility], Department of Laboratory Medicine. It has [...] interpreted with caution. 02/22/2022 2:49 PM CDT [facility] Embedded Images 02/22/2022 2:49 PM CDT [facility] Pathology/Cytolo gy CYST FLUID SPECIMEN / Unknown Collection / Unknown 02/21/2022 12:06 PM CDT 02/21/2022 12:55 PM CDT Michelle Abraham MD LAB - PATHOLOGY/C YTOLOGY ORDERABLES Performing Organization Address City/State/[facility] Co de Phone Number [facility] [address] [place] [address] * US FINE NEEDLE ASPIRATION [...] Case Report Fine Needle Aspiration Report Case: [id number] Authorizing Provider: Michelle Abraham MD Collected: 02/21/2022 11:25 AM Ordering Location: [facility] Received: 02/21/2022 01:33 PM Pathologist: Daljit Morales MD Specimen: Neck, Parotid 02/22/2022 2:57 PM CDT [facility] Final Diagnosis Parotid, left, ultrasound-guided fine-needle aspiration: 1. Satisfactory for evaluation 2. Prominent polymorphous inflammatory cell infiltrate with minor component of epithelial cells present (see microscopic) 02/22/2022 2:57 PM CDT [facility] Clinical History 76-year-old man recently noticed an enlarging nodule in his left cheek that a couple shaving. Evaluation by CT scan showed, I mpression: Necrotic left parotid mass, extensive parotid and superficial inflammation. Consider right parotitis, parotid gland cancer, necrotic lymph node, abscess. Evaluation by ENT identified a nontender left parotid mass and favored inflamed Warthin's tumor. 02/22/2022 2:57 PM CDT [facility] Gross Description From 3 ultrasound-guided fine [...] at 11:22 AM 02/22/2022 2:57 PM CDT [facility] Microscopic Description Review of the cell [...] more definitive diagnosis. 02/22/2022 2:57 PM CDT [facility] Disclaimer All histochemical and/or immunohistochemical results are interpreted with controls that demonstrate appropriate staining reactions before reporting results. Note on use of immunocytochemistry reagents: This test was developed and its performance characteristic determined by [facility], Department of Laboratory Medicine. It has [...] interpreted with caution. 02/22/2022 2:57 PM CDT [facility] Embedded Images 02/22/2022 2:57 PM CDT [facility] Pathology/Cytolo gy ENTIRE NECK / Unknown 02/21/2022 11:25 AM CDT 02/21/2022 1:33 PM CDT Michelle Abraham MD LAB - PATHOLOGY/C YTOLOGY ORDERABLES [facility] [address] [place] [address] * CULTURE FUNGUS OTHER+FUNGUS SMEAR (02/21/2022 11:10 AM CDT) Culture No fungus isolated SUHAS 03/18/2022 10:27 AM CDT [facility] Fungus Stain No yeast or hyphae seen 03/18/2022 10:27 AM CDT [facility] Microbiology MASS OF PAROTID GLAND / Unknown Collection / Unknown 02/21/2022 11:10 AM CDT 02/21/2022 12:29 PM CDT Michelle Abraham MD LAB - MICROBIOLOG Y ORDERABLES [facility] [address] [place] [address], [facility] [phone] * (ABNORMAL) CULTURE TISSUE+GRAM STAIN (02/21/2022 11:10 AM CDT) Culture No growth SUHAS 02/25/2022 11:49 AM CDT [facility] Gram Stain Light Polymorphonuclear cells(AA) 02/25/2022 11:49 AM CDT [facility] Gram Stain Light Gram-positive cocci(AA) 02/25/2022 11:49 AM CDT [facility] Microbiology MASS OF PAROTID GLAND / Unknown Collection / Unknown 02/21/2022 11:10 AM CDT 02/21/2022 12:29 PM CDT Narrative [facility] - 02/25/2022 11:49 AM CDT Organisms seen on initial Gram stain may be anaerobic or not viable for aerobic growth. Michelle Abraham MD LAB - MICROBIOLOG Y ORDERABLES Performing Organization Address City/[facility]/ZIP Co de Phone Number [facility] [address] [place] [address], [facility] [phone] * CULTURE ANAEROBE (02/21/2022 11:10 AM CDT) Culture No anaerobic organisms isolated SUHAS 02/27/2022 9:50 AM CDT [facility] Microbiology MASS OF PAROTID GLAND / Unknown Collection / Unknown 02/21/2022 11:10 AM CDT 02/21/2022 12:29 PM CDT Michelle Abraham MD LAB - MICROBIOLOG Y ORDERABLES [facility] [address] [place] [address] [phone] * (ABNORMAL) PT-INR (02/03/2022 2:47 AM CDT) Only the most recent of2 resultswithin the time period is included. [facility] PT 19.4(H) 12.1 - 14.8 sec 02/03/2022 4:25 AM CDT [facility] INR 1.6(H) 0.9 - 1.1 02/03/2022 4:25 AM CDT [facility] Blood BLOOD SPECIMEN / Unknown Lab Venipuncture / Unknown 02/03/2022 2:47 AM CDT 02/03/2022 3:36 AM CDT [facility] - 02/03/2022 4:25 AM CDT Conventional Warfarin Anticoagulant Therapy: INR Reference Range: 2.0-3.0 Intensive Warfarin Anticoagulant Therapy: INR Reference Range: 2.5-3.5 Guero [place] DO LAB - COAGULATION OR DERABLES Performing Organization Address [facility]/State/[facility] Co de Phone Number [facility] [address] [place] [address] * (ABNORMAL) CBC W/O DIFFERENTIAL (02/03/2022 2:47 AM CDT) [facility] WBC 10.5 4.4 - 10.7 x10E9/L 02/03/2022 3:54 AM CDT [facility] RBC 3.86 3.80 - 5.40 x10E12/L 02/03/2022 3:54 AM CDT [facility] Hemoglobin 12.6 12.0 - 17.6 gm/dL 02/03/2022 3:54 AM CDT [facility] Hematocrit 38.4 35.2 - 51.7 % 02/03/2022 3:54 AM CDT [facility] MCV 99.5(H) 80.7 - 98.3 fl 02/03/2022 3:54 AM CDT [facility] MCH 32.6 26.7 - 34.0 pg 02/03/2022 3:54 AM CDT [facility] MCHC 32.8 30.8 - 35.9 gm/dL 02/03/2022 3:54 AM CDT [facility] Platelet Count 181 153 - 416 x10E9/L 02/03/2022 3:54 AM CDT [facility] RDW-CV 12.7 12.1 - 14.9 % 02/03/2022 3:54 AM CDT [facility] MPV 9.3(L) 9.4 - 12.9 fl 02/03/2022 3:54 AM CDT [facility] Blood BLOOD SPECIMEN / Unknown Lab Venipuncture / Unknown 02/03/2022 2:47 AM CDT 02/03/2022 3:37 AM CDT Guero [place] DO LAB - HEMATOLOGY ORD ERABLES [facility] [address] [place] [address] * (ABNORMAL) COMPREHENSIVE METABOLIC PANEL (02/03/2022 2:47 AM CDT) Only the most recent of2 resultswithin the time period is included. Glucose 224(H) 70 - 105 mg/dL 02/03/2022 4:21 AM [facility] Sodium 140 136 - 145 mmol/L 02/03/2022 4:21 AM [facility] Potassium 4.5 3.5 - 5.1 mmol/L 02/03/2022 4:21 AM [facility] Chloride 106 98 - 107 mmol/L 02/03/2022 4:21 AM [facility] CO2 25 23 - 31 mmol/L 02/03/2022 4:21 AM [facility] Calcium 9.1 8.4 - 10.4 mg/dL 02/03/2022 4:21 AM [facility] Anion Gap 9 8 - 18 mmol/L 02/03/2022 4:21 AM [facility] BUN 26(H) 8.4 - 25.7 mg/dL 02/03/2022 4:[facility] Creatinine 0.98 0.72 - 1.25 mg/dL 02/03/2022 4:21 AM [facility] Alkaline Phosphatase 72 40 - 150 U/L 02/03/2022 4:21 AM CDT [facility] ALT 12 0 - 61 U/L 02/03/2022 4:21 AM CDT [facility] AST 14 5 - 34 U/L 02/03/2022 4:21 AM CDT [facility] Protein Total 6.9 6.4 - 8.3 gm/dL 02/03/2022 4:21 AM CDT [facility] Albumin 3.5 3.2 - 4.6 gm/dL 02/03/2022 4:21 AM CDT [facility] Bilirubin Total 2.0(H) 0.2 - 1.2 mg/dL 02/03/2022 4:21 AM CDT [facility] eGFR by CKD-EPI 80(L) >=90 mL/min/1.7 3 m2 02/03/2022 4:21 AM CDT [facility] Blood BLOOD SPECIMEN / Unknown Lab Venipuncture / Unknown 02/03/2022 2:47 AM CDT 02/03/2022 3:36 AM CDT [facility] - 02/03/2022 4:21 AM CDT eGFR result was calculated using the updated CKD-EPI Creatinine Equations (2020). Prior to go live 2021 the eGFR was calculated using the MDRD calculation. Please note Reference Range change. Guero [place] DO LAB - CHEMISTRY YECENIA RÍOS [facility] [address] [place] [address] * (ABNORMAL) CBC W AUTO DIFFERENTIAL (02/02/2022 5:39 AM CDT) WBC 9.2 4.4 - 10.7 x10E9/L 02/02/2022 6:00 AM CDT [facility] WBC Corrected 02/02/2022 6:00 AM CDT [facility] RBC 3.93 3.80 - 5.40 x10E12/L 02/02/2022 6:00 AM CDT [facility] Hemoglobin 12.7 12.0 - 17.6 gm/dL 02/02/2022 6:00 AM CDT [facility] Hematocrit 37.6 35.2 - 51.7 % 02/02/2022 6:00 AM [facility] MCV 95.7 80.7 - 98.3 fl 02/02/2022 6:00 AM [facility] MCH 32.3 26.7 - 34.0 pg 02/02/2022 6:00 AM [facility] MCHC 33.8 30.8 - 35.9 gm/dL 02/02/2022 6:00 AM [facility] Platelet Count 167 153 - 416 x10E9/L 02/02/2022 6:00 AM [facility] RDW-CV 12.9 12.1 - 14.9 % 02/02/2022 6:00 AM [facility] MPV 8.9(L) 9.4 - 12.9 fl 02/02/2022 6:00 AM [facility] Neutrophils % 73.7(H) 44.0 - 73.0 % 02/02/2022 6:00 AM [facility] Lymphocytes % 15.2(L) 20.0 - 43.0 % 02/02/2022 6:00 AM [facility] Monocytes % 9.7 5.0 - 13.0 % 02/02/2022 6:00 AM [facility] Eosinophils % 0.8 0.0 - 6.0 % 02/02/2022 6:00 AM [facility] Basophils % 0.4 0.0 - 2.0 % 02/02/2022 6:00 AM [facility] Immature Granulocytes 0.2 0 - 1 % 02/02/2022 6:00 AM [facility] Neutrophil Absolute 6.79 2.01 - 7.14 x10E9/L 02/02/2022 6:00 AM [facility] Lymphocytes Absolute 1.40 1.07 - 3.94 x10E9/L 02/02/2022 6:00 AM [facility] Monocytes Absolute 0.89 0.26 - 1.07 x10E9/L 02/02/2022 6:00 AM [facility] Eosinophils Absolute 0.07 0 - 0.47 x10E9/L 02/02/2022 6:00 AM [facility] Basophils Absolute 0.04 0 - 0.08 x10E9/L 02/02/2022 6:00 AM CDT [facility] Immature Granulocytes Absolute 0.02 0.00 - 0.06 x10E9/L 02/02/2022 6:00 AM CDT [facility] nRBC Auto 0 /100 WBC 02/02/2022 6:00 AM CDT [facility] Blood BLOOD SPECIMEN / Unknown Lab Venipuncture / Unknown 02/02/2022 5:39 AM CDT 02/02/2022 5:46 AM CDT Guero [place] DO LAB - HEMATOLOGY ORD ERABLES Performing Organization Address City/[facility]/ZIP Co de Phone Number [facility] [address] [place] [address] * LACTIC ACID BLOOD (02/02/2022 5:39 AM CDT) Lactic Acid 0.8 <=2 mmol/L 02/02/2022 6:15 AM CDT [facility] Blood BLOOD SPECIMEN / Unknown Lab Venipuncture / Unknown 02/02/2022 5:39 AM CDT 02/02/2022 5:47 AM CDT Guero [place] DO LAB - CHEMISTRY ORDE RABLES [facility] [address], [place] [id number] Care Teams Facer Operator Relationship Specialty Start Date End Date Zoraida Mancia MD [address] [facility] [address] [place] [address] PCP - General Family Medicine 02/02/22
--- OUTSIDE RECORDS SUMMARY | 2025-01-13 00:48 | XMS_ITS | Clinical Summary ---
Author Organization [facility] Address [address] [place] [address] Care Team Providers Care Rehab Physician Name Role Phone Zoraida Mancia MD Primary Care Provider Aris lynn Source Comments [facility],non-owned Affiliates and Associated Physician Practices is amultiple site organization consisting of ambulatory clinics and hospital sitesin [place], [place], [place] and [place]. This disclosure is being madepursuant to the Care Everywhere program and may not contain all information available regarding this patient. Last updated 18.[facility] Allergies No known active allergies Medications * [...] Immunizations Name Administration Dates Next Due Covid Voxxter primary monoval ent 12+ yr 0.3mL Purple [...] complete this topic MENINGOCOCCAL (Group B) VACCINE SHARED DECISION-MAKING Aged Out No longer eligible based on patient's age to complete this topic MENINGOCOCCAL GROUPS A/C/Y/W VACCINE Aged Out No longer eligible based on patient's age to complete this topic Advance Directives * Full Code (Latest Code Status on File) Date Activated Date Inactivated Comments 02/02/2022 5:06 AM 02/03/2022 1:29 PM Care Teams Rehab Physician Relationship Specialty Start Date End Date Rostovtseva, Zoraida Y, MD [address] [facility] [address] [place] [address] PCP - General Family Medicine 02/02/22
--- OUTSIDE RECORDS SUMMARY | 2025-01-13 00:48 | XMS_ITS | Referral Summary ---
Author Organization [facility] Address [address] [place] [address] Care Team Providers Care Distributing Clerk Name Role Phone Zoraida Mancia MD Primary Care Provider Encounters Date Type Department Care Team Description 12/24/2024 Telephone [facility] Cardiology [facility] Medicine 8th [place] [address] [place] [id number] Emilee Marsh 12/24/2024 Anticoagulation Visit [facility] Medical [facility] Cardiology [address] [place] [address] Anup Rock RN Atrial fibrillation, unspecified type (HCC) (Primary Dx) 12/05/2024 Orders Only [facility] Cardiology [address] [facility] [address] [place] [address] Benoit Thomson MD 11/25/2024 Anticoagulation Visit [facility] Cardiology [address] [place] [address] [address] [place] [address] Anup Rock RN Atrial fibrillation, unspecified type (HCC) (Primary Dx) 11/01/2024 Anticoagulation Visit [facility] Cardiology [address] [place] [address] Anup Rock RN Atrial fibrillation, unspecified type (HCC) (Primary Dx) from Last 3 Months Allergies No known active allergies Medications multivitamin tabletIndicatio ns:Vitamin Deficiency Prevention Take 1 tablet by mouth every morning Active warfarin (COUMADIN) 4 mg tablet TAKE 2 TABLETS DAILY 180 tablet 2 04/29/2024 Active metoprolol XL (TOPROL-XL) 25 mg extended release tabletIndicatio ns:NICM (nonischemic cardiomyopathy) (HCC) TAKE 1 TABLET DAILY 90 tablet 3 05/24/2024 Active Active Problems Problem Noted Date Diagnosed Date PVC (premature ventricular contraction) 10/13/20 24 NSVT (nonsustained ventricular tachycardia) 10/03 NICM (nonischemic cardiomyopathy) 01/07/2023 Presence of permanent cardiac pacemaker 06/09/20 Overview (07/22/2023): Medtronic Clair Dual Pacemaker. Dx; Second Degree aVB. DOI 04/28/2020-Dr Thomson. Gisselle. Carelink remote. Device is followed @ [facility] device clinic. Heart block AV second degree 01/11/2020 Coronary artery disease invo lving [place] coronary artery of [place] heart without angina pectoris 06/16/2019 Atrial fibrillation 03/10/2019 S/P mitral valve replacement 03/04/2019 Hyperlipidemia LDL goal <100 03/04/2019 Pre-diabetes 03/04/2019 Pulmonary hypertension 03/04/2019 Immunizations Immunization Administration Dates Next Due Hep A, Adult 04/08/1999 IPV 11/13/1996 Influenza, Quadrivalent, Hig h Dose, Preservative Free, Intrr 08/31/2020 Influenza, Split 12/08/2004,10/15/2003, 2 Influenza, Trivalent, Adjuva nted, Intramuscular 08/01/2019 Influenza, Unspecified 06/16/2023,08/16/2021 Influenza, Whole 11/12/2003 MMR 10/14/1989 [facility] SARS-CoV-2 Monovalent Vaccination (12+ Yrs) PURPLE 09/10/2023,08/30/2022,08/16/2021,01/21,12/31/2020 [...] Sexual Orientation Straight 09/09/2019 9: 00 PM BACKFILLER Last Filed Vital Signs Vital Sign Reading Time Taken Comments Blood Pressure 153/87 10/13/2024 10:19 AM BACKFILLER Pulse 72 10/13/2024 10:19 AM BACKFILLER Temperature 36.4 C (97.5 F) 08/17/2020 2:03 PM CDT Respiratory Rate 18 04/29/2020 8:00 AM CDT Oxygen Saturation 97% 10/13/2024 10:19 AM BACKFILLER Inhaled Oxygen Concentration - - Weight 85.3 kg (188 lb) 10/13/2024 10:19 AM BACKFILLER Height 180.3 cm (5' 11) 10/13/2024 10:19 AM BACKFILLER Body Mass Index 26.22 10/13/2024 10:19 AM BACKFILLER Plan of Treatment Not on file Medical Devices Implanted Type Area Hot Metal Mixer Operator Helper Device Identifier Shelf Expiration Date Model / Serial / Lot Medtronic Cardiac Rhythm Mgmt 5076-52 Capsurefix Novus 6.2fr 2mm 52cm Bipolar Screw In Implantable Latex Free - [id number] - [id number] Implanted:Qty: 1 on 04/28/2020 by Benoit Thomson MD at [facility] Lead Left: Heart Medtronic Inc 01/05/2022 5076-52 / [id number] / Medtronic Cardiac Rhythm Mgmt 5076-45 Capsurefix Novus 6.2fr 2mm 45cm Bipolar Screw In Implantable - [id number] - [id number] Implanted:Qty: 1 on 04/28/2020 by Benoit Thomson MD at [facility] Lead Left: Heart Medtronic Inc 01/09/2022 5076-45 / [id number] / Medtronic Cardiac Rhythm Mgmt [id number] Clair Wirelessly Pacemaker Cardiac - [id number] - [id number] Implanted:Qty: 1 on 04/28/2020 by Benoit Thomson MD at [facility] Pacemaker Left: Heart Medtronic Inc 07/31/2021 [id number] / [id number] / Procedures Procedure Name Priority Date/Time Associated Diagnosis Comments PROTIME-INR Routine 12/24/2024 DEVICE CHECK - REMOTE Routine 12/05/2024 10:48 PM BACKFILLER PROTIME-INR Routine 11/24/2024 PROTIME-INR Routine 10/29/2024 from Last 3 Months Results * (ABNORMAL) Protime-INR (12/24/2024) INR 2.30(A) 0.90 - 1.10 EXTERNAL LAB Blood us Historical Provider LAB BLOOD ORDERABLES Aimee l Result EXTERNAL LAB * DEVICE CHECK - REMOTE (12/05/2024 10:48 PM BACKFILLER) Anatomical Region Laterality Modality Other 12/05/2024 10:4 8 PM BACKFILLER Narrative 12/20/2024 11:17 AM BACKFILLER Interpretation Summary: Battery and Leads (BL) Normal parameters noted on battery and lead(s) --- 10.1 yrs remaining longevity. Lead impedance, sensing, and threshold trends stable and appropriate. No short V-V intervals. Presenting Rhythm (IA) Atrial Sensing-Ventricular Sensing (-VS) --- /VS (SR) 60s. Arrhythmic events (AE) No new arrhythmic events in monitoring period --- Since 10/13/24: No AHR or VHR episodes. Anticoagulation (AC) Patient on anticoagulant therapy Patient prescribed Warfarin (Coumadin) Transmission Information (TI) Device Summary Report Follow Up (FU) Patient's primary treating physician will be apprised of findings Procedure Note Benoit Thomson MD - 12/20/2024 Interpretation Summary: Battery and Leads (BL) Normal parameters noted on battery and lead(s) --- 10.1 yrs remaininglongevity. Lead impedance, sensing, and threshold trends stable andappropriate. No short V-V intervals. Presenting Rhythm (IA) Atrial Sensing-Ventricular Sensing (-VS) --- /VS (SR) 60s. Arrhythmic events (AE) No new arrhythmic events in monitoring period --- Since 10/13/24: No AHRor VHR episodes. Anticoagulation (AC) Patient on anticoagulant therapy Patient prescribed Warfarin (Coumadin) Transmission Information (TI) Device Summary Report Follow Up (FU) Patient's primary treating physician will be apprised of findings Result [facility] Benoit Thomson MD CV CARDIAC SERVICES PRO CEDURES Final Result * (ABNORMAL) Protime-INR (11/24/2024) INR 2.10(A) 0.90 - 1.10 EXTERNAL LAB Blood Historical Provider LAB BLOOD ORDERABLES Aimee l Result EXTERNAL LAB * (ABNORMAL) Protime-INR (10/29/2024) INR 2.60(A) 0.90 - 1.10 EXTERNAL LAB Blood Result [facility] Historical Provider LAB BLOOD ORDERABLES Aimee l Result EXTERNAL LAB from Last 3 Months Insurance MEDICARE L[employer] FOR LIFE MEDICARE FOR LIFE MEDICARE Member Subscriber Plan / Payer (Ef fective 2011-Present) Name:Leroy Osorio Member ID:[id number] Relation to Subscriber:Self Name:Leroy Osorio Subscriber ID:[id number] Payer ID:[id number] Group ID:Not on file Type:MEDICARE TRADITIONAL Address: [place] [phone] FOR [facility] MEDICARE FOR LIFE Advance Directives For more information, please contact: [phone] * Full Code (Latest Code Status on File) Date Activated Date Inactivated Comments 04/28/2020 2:49 PM 04/29/2020 5:16 PM Care Teams Distributing Clerk Relationship Specialty Start Date End Date Zoraida Mancia MD [address] [facility] [address] [place] [address] PCP - General Family Medicine 09/10/19
--- OUTSIDE RECORDS SUMMARY | 2025-01-13 00:48 | XMS_ITS | Referral Summary ---
Author Organization [facility] Pro Breath MD Address [address] [facility] [place] [address] Care Team Providers Care Corporate Communications Intern Name Role Phone Zoraida Mancia MD Primary Care Provider Aris lynn Source Comments [facility] Pro Breath MD,non-owned Affiliates and Associated Physician Practices is amultiple site organization consisting of ambulatory clinics and hospital sitesin [place], [place], [place] and [place]. This disclosure is being madepursuant to the Care Everywhere program and may not contain all information available regarding this patient. Last updated 18.[facility] Pro Breath MD Allergies No known active allergies Medications * [...] Immunizations Name Administration Dates Next Due Covid AlignAlytics primary monoval ent 12+ yr 0.3mL Purple [...] 5:06 AM 02/03/2022 1:29 PM Care Teams Corporate Communications Intern Relationship Specialty Start Date End Date Zoraida Mancia MD [address] [facility] [address] [place] [address] PCP - General Family Medicine 02/02/22
--- OUTSIDE RECORDS SUMMARY | 2025-01-13 00:48 | XMS_ITS | Encounter Summary ---
Author Organization [facility] Address [address] [place] [address] Care Team Providers Care Kiln Furniture Saw Tender Name Role Phone Zoraida Mancia MD Primary Care Provider Encounter Details Date Type Department Care Team (Late st Contact Info) Description 05/27/2024 Orders Only [facility] Health Information Management [address] [place] [address] Scanning, Provider Social History Tobacco Use Types [...] Sexual Orientation Straight 09/09/2019 9: 00 PM COOK FRUIT documented as of this encounter Plan of Treatment Not on file documented as of this encounter Procedures Procedure Name Priority Date/Time Associated Diagnosis Comments SCAN - LABS 05/27/2024 documented in this encounter Results * SCAN - LABS (05/27/2024) Provider Scanning Final Result documented in this encounter Visit Diagnoses Not on filedocumented in this encounter Care Teams Kiln Furniture Saw Tender Relationship Specialty Start Date End Date Zoraida Mancia MD [address] [facility] [address] [place] [address] PCP - General Family Medicine 09/10/19 documented as of this encounter
--- OUTSIDE RECORDS SUMMARY | 2025-01-13 00:48 | XMS_ITS | Clinical Summary ---
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
--- OUTSIDE RECORDS SUMMARY | 2025-01-13 00:48 | XMS_ITS | Encounter Summary ---
Author Organization [facility] Healthcare Address [address] [place] [address] Care Team Providers Care Aircraft Detail Draftsperson Name Role Phone Zoraida Mancia MD Primary Care Provider Encounter Details Date Type Department Care Team (Late st Contact Info) Description 04/29/2024 Orders Only [facility] Health Information Management [address] [place] [address] Scanning, Provider Social History Tobacco Use Types [...] Sexual Orientation Straight 09/09/2019 9: 00 PM PIPE FITTER APPRENTICE documented as of this encounter Plan of Treatment Not on file documented as of this encounter Procedures Procedure Name Priority Date/Time Associated Diagnosis Comments SCAN - LABS 04/29/2024 documented in this encounter Results * SCAN - LABS (04/29/2024) Provider Scanning Final Result documented in this encounter Visit Diagnoses Not on filedocumented in this encounter Care Teams Aircraft Detail Draftsperson Relationship Specialty Start Date End Date Zoraida Mancia MD [address] [facility] [address] [place] [address] PCP - General Family Medicine 09/10/19 documented as of this encounter
--- OUTSIDE RECORDS SUMMARY | 2025-01-13 00:49 | XMS_ITS | Clinical Summary ---
Author Organization [facility] Address [address] [place] [address] Care Team Providers Care Criminal Intelligence Analyst Name Role Phone Zoraida Mancia MD Primary Care Provider Allergies No known active allergies Medications multivitamin tabletIndicatio ns:Vitamin Deficiency Prevention Take 1 tablet by mouth every morning Active warfarin (COUMADIN) 4 mg tablet TAKE 2 TABLETS DAILY 180 tablet 2 04/29/2024 Active metoprolol XL (TOPROL-XL) 25 mg extended release tabletIndicatio ns:NICM (nonischemic cardiomyopathy) ([facility]) TAKE 1 TABLET DAILY 90 tablet 3 05/24/2024 Active Active Problems Problem Noted Date Diagnosed Date PVC (premature ventricular contraction) 10/13/20 24 NSVT (nonsustained ventricular tachycardia) 10/03 NICM (nonischemic cardiomyopathy) 01/07/2023 Presence of permanent cardiac pacemaker 06/09/20 20 Overview (07/22/2023): Medtronic Clair Dual Pacemaker. Dx; Second Degree aVB. DOI 04/28/2020-Dr Thomson. Gisselle. Carelink remote. Device is followed @ [place] device clinic. Heart block AV second degree 01/11/2020 Coronary artery disease invo lving [place] coronary artery of [place] heart without angina pectoris 06/16/2019 Atrial fibrillation 03/10/2019 S/P mitral valve replacement 03/04/2019 Hyperlipidemia LDL goal <100 03/04/2019 Pre-diabetes 03/04/2019 Pulmonary hypertension 03/04/2019 Encounters Date Type Department Care Team Description 12/24/2024 Telephone [facility] Cardiology [address] [facility] 8th [place] [address] [place] [address] Emilee Marsh 12/24/2024 Anticoagulation Visit [facility] Medical [facility] Cardiology [address] [place] [address] Anup Rock RN Atrial fibrillation, unspecified type (HCC) (Primary Dx) 12/05/2024 Orders Only [facility] Cardiology [address] [facility] [address] [place] [address] Benoit Thomson MD 11/25/2024 Anticoagulation Visit [facility] Cardiology [address] [place] [address] Anup Rock RN Atrial fibrillation, unspecified type (HCC) (Primary Dx) 11/01/2024 Anticoagulation Visit [facility] Cardiology [address] [place] [address] Anup Rock RN Atrial fibrillation, unspecified type (HCC) (Primary Dx) from Last 3 Months Immunizations Immunization Administration Dates Next Due Hep A, Adult 04/08/1999 IPV 11/13/1996 Influenza, Quadrivalent, Hig h Dose, Preservative Free, Intrr 08/31/2020 Influenza, Split 12/08/2004,10/15/2003, 2 Influenza, Trivalent, Adjuva nted, Intramuscular 08/01/2019 Influenza, Unspecified 06/16/2023,08/16/2021 Influenza, Whole 11/12/2003 MMR 10/14/1989 [facility] SARS-CoV-2 Monovalent Vaccination (12+ Yrs) PURPLE 09/10/2023,08/30/2022,08/16/2021,01/21,12/31/2020 [...] Sexual Orientation Straight 09/09/2019 9: 00 PM SENIOR EXECUTIVE COMPENSATION ANALYST Obstetrics History Last Filed Vital Signs Vital Sign Reading Time Taken Comments Blood Pressure 153/87 10/13/2024 10:19 AM SENIOR EXECUTIVE COMPENSATION ANALYST Pulse 72 10/13/2024 10:19 AM SENIOR EXECUTIVE COMPENSATION ANALYST Temperature 36.4 C (97.5 F) 08/17/2020 2:03 PM CDT Respiratory Rate 18 04/29/2020 8:00 AM CDT Oxygen Saturation 97% 10/13/2024 10:19 AM SENIOR EXECUTIVE COMPENSATION ANALYST Inhaled Oxygen Concentration - - Weight 85.3 kg (188 lb) 10/13/2024 10:19 AM SENIOR EXECUTIVE COMPENSATION ANALYST Height 180.3 cm (5' 11) 10/13/2024 10:19 AM SENIOR EXECUTIVE COMPENSATION ANALYST Body Mass Index 26.22 10/13/2024 10:19 AM SENIOR EXECUTIVE COMPENSATION ANALYST Plan of Treatment Health Maintenance Due Date [...] 06/16/2023, 11/2017 Medical Devices Implanted Type Area Shank Threader Device Identifier Shelf Expiration Date Model / Serial / Lot Medtronic Cardiac Rhythm Mgmt 5076-52 Capsurefix Novus 6.2fr 2mm 52cm Bipolar Screw In Implantable Latex Free - [id number] - [id number] Implanted:Qty: 1 on 04/28/2020 by Benoit Thomson MD at [facility] Lead Left: Heart Medtronic Inc 01/05/2022 5076-52 / [id number] / Medtronic Cardiac Rhythm Mgmt 5076-45 Capsurefix Novus 6.2fr 2mm 45cm Bipolar Screw In Implantable - [id number] - [id number] Implanted:Qty: 1 on 04/28/2020 by Benoit Thomson MD at [facility] Lead Left: Heart Medtronic Inc 01/09/2022 5076-45 / [id number] / Medtronic Cardiac Rhythm Mgmt [id number] Clair Wirelessly Pacemaker Cardiac - [id number] - [id number] Implanted:Qty: 1 on 04/28/2020 by Benoit Thomson MD at [facility] Pacemaker Left: Heart Medtronic Inc 07/31/2021 [id number] / [id number] / Procedures Procedure Name Priority Date/Time Associated Diagnosis Comments PROTIME-INR Routine 12/24/2024 DEVICE CHECK - REMOTE Routine 12/05/2024 10:48 PM SENIOR EXECUTIVE COMPENSATION ANALYST PROTIME-INR Routine 11/24/2024 PROTIME-INR Routine 10/29/2024 from Last 3 Months Results * (ABNORMAL) Protime-INR (12/24/2024) INR 2.30(A) 0.90 - 1.10 EXTERNAL LAB Blood us Historical Provider LAB BLOOD ORDERABLES Aimee moore Result EXTERNAL LAB * DEVICE CHECK - REMOTE (12/05/2024 10:48 PM SENIOR EXECUTIVE COMPENSATION ANALYST) Anatomical Region Laterality Modality Other 12/05/2024 10:4 8 PM SENIOR EXECUTIVE COMPENSATION ANALYST Narrative 12/20/2024 11:17 AM SENIOR EXECUTIVE COMPENSATION ANALYST Interpretation Summary: Battery and Leads (BL) Normal parameters noted on battery and lead(s) --- 10.1 yrs remaining longevity. Lead impedance, sensing, and threshold trends stable and appropriate. No short V-V intervals. Presenting Rhythm (AZ) Atrial Sensing-Ventricular Sensing (-VS) --- /VS (SR) [...] andappropriate. No short V-V intervals. Presenting Rhythm (AZ) Atrial Sensing-Ventricular Sensing (-VS) --- /VS (SR) 60s. Arrhythmic events (AE) No new arrhythmic events in monitoring period --- Since 10/13/24: No AHRor VHR episodes. Anticoagulation (AC) Patient on anticoagulant therapy Patient prescribed Warfarin (Coumadin) Transmission Information (TI) Device Summary Report Follow Up (FU) Patient's primary treating physician will be apprised of findings Benoit Thomson MD CV CARDIAC SERVICES PRO CEDURES Final Result * (ABNORMAL) Protime-INR (11/24/2024) INR 2.10(A) 0.90 - 1.10 EXTERNAL LAB Blood Historical Provider LAB BLOOD ORDERABLES Aimee l Result EXTERNAL LAB * (ABNORMAL) Protime-INR (10/29/2024) INR 2.60(A) 0.90 - 1.10 EXTERNAL LAB Blood Historical Provider LAB BLOOD ORDERABLES Aimee l Result EXTERNAL LAB from Last [address] [place] [address] [place] [address] [place] [address] MEDICARE FOR LIFE MEDICARE FOR LIFE MEDICARE FOR LIFE Advance Directives For more information, please contact: [phone] * Full Code (Latest Code Status on File) Date Activated Date Inactivated Comments 04/28/2020 2:49 PM 04/29/2020 5:16 PM Care Teams Criminal Intelligence Analyst Relationship Specialty Start Date End Date Zoraida Mancia MD [address] [place] [address] PCP - General Family Medicine 09/10/19
--- NOTE | 2025-01-13 06:24 | WPDHPUPDATE1 ---
History and Physical Update Update Date/Time: 01/13/25 06:24 History and Physical has been reviewed, including an updated exam of the patient. There are NO changes in the patient's condition. Risks, benefits, and alternatives have been discussed and questions answered. Patient agrees to proceed with procedure.
[2025-01-13] MEDS: LACTATED RINGERS 1,000 ML 30 ML IV CONT (06:45)
[2025-01-13 07:25] LABS: INR 1.1
--- NOTE | 2025-01-13 07:53 | WPDANESEPPF ---
Anes - Initial Pre Proc Eval Procedure: Operation Date: 01/13/25 08:15 Proposed Procedures p Cystoscopy, Left Ureteroscopy, Possible Left Retrograde Pyelogram, Possible Left Stone Extraction, Possible Left Stent Placement, Laser Lithotripsy of Bladder Stone - Daljit Gallardo MD Date/Time: 01/13/25 07:53 Surgeon: Daljit Gallardo MD Pre Op Diagnosis: bladder stone, left kidney stone Patient Data Age: 79 Gender: M Height: 1.79 m Weight: 81.6 kg Last Vital Signs Temp 36.6 C 01/13/25 07:50 Pulse 72 01/13/25 07:50 Resp 18 01/13/25 07:50 BP 146/84 H 01/13/25 07:50 Pulse Ox 95 01/13/25 07:50 O2 Del Method Room Air 01/13/25 07:50 Allergies Allergy/AdvReac Type Severity Reaction Status Date / Time No Known Allergies Allergy Verified 01/13/25 07:47 Home Medications ?Medication ?Instructions ?Recorded ?Confirmed ?Type warfarin 4 mg tablet 8 mg PO QPM 07/15/22 01/13/25 History multivitamin 1 tablet PO DAILY 10/01/22 01/13/25 History metoprolol succinate 25 mg 25 mg PO QPM 01/08/23 01/13/25 History tablet,extended release 24 hr (Toprol XL) Laboratory Tests 01/13/25 06:57 PT 15.0 H Seconds (11.1-14.7) INR 1.1 Patient hx anesthesia problems: none Family hx anesthesia problems: none Results Review: All pre-operative results and documents have been reviewed as part of the pre-operative evaluation. [facility] Past Medical History Medical History Coronary artery disease Pacemaker Atrial fibrillation once after MVR Obstruction of left ureteropelvic junction due to stone Hematuria Degenerative arthritis of cervical spine (~1998) Anticoagulated by anticoagulation treatment Mitral valve prolapse Arthritis (Unknown) History of nephrolithiasis HTN (hypertension) HLD (hyperlipidemia) Surgical History Surgical History (Updated 01/13/25 @ 07:54 by Martín Alfonso MD) Total knee replacement status History of detached retina repair (~01/1996) History of detached retina repair (~02/2006) History of total left knee replacement (~12/2007) History of total right knee replacement (~12/2009) History of cataract extraction (~03/2015) History of cataract extraction (~12/2014) Hx of mitral valve replacement (~08/13/17) Family History Family History Mother Cancer lung cancer Father Lung cancer Social History Social History Social History: Smoking status: Current every day smoker Tobacco type: cigars Second hand tobacco smoke exposure: No Additional smoking assessment comments: SMOKES CIGARS OCC (average 3 a week) Alcohol intake: current Drinks per week: 4 Alcohol use details: wine Substance use: never Substance use type: does not use Lack of Transportation: No Lack of Food: Never True Current Housing: I Have Housing Concerned About Future Housing: No Difficulty Paying Gas/Electric Bills: No Difficulty Paying for Meds: No Currently Unemployed: YES Education: Associate Degree Difficulty w/ Childcare or Family Care: No Living arrangements: with family Occupation/Education: retired Gender identity (if verbalized by the patient): Male Sexual Orientation (if Verbalized by the Patient): Straight or Heterosexual Spiritual care concerns: No Anes - Eval Final PreProcedure Day of Procedure 01/13/25 07:53 Patient weight: normal Heart: regular rate and rhythm Lungs: clear to auscultation Airway: Mallampati scale class III and special considerations poor opening Neurological: alert and oriented Last oral intake: >/= 8 hours ASA classification: III Emergent: no Anesthetic plan: proceed Anesthesia type and monitoring: general LMA and standard monitoring Results Review: All pre-operative results and documents have been reviewed as part of the pre-operative evaluation. Informed Consent: The patient's anesthetic plan and its attendant risks and benefits were discussed with the patient/family/POA. Questions were solicited and answers provided to the satisfaction of the patient/family/POA.
[2025-01-13] MEDS: ceFAZolin 2 GM/D5W 50 ML 2 GM/50 ML BAG IVPB (08:15)
[2025-01-13] MEDS: LIDOCAINE 2% GEL UROJET 10 ML PKG MUCOUS MEM (08:28)
--- NOTE | 2025-01-13 08:42 | S_PTH ---
PATIENT: Leroy Osorio LOC: [facility] U#:[id number] AGE/SX: 79/M ROOM: RE01/13/[address]: Daljit Gallardo MD : [id number] BED: DIS: 01/13/2025 SPEC #: [id number] RECD: 01/13/25 11:16 STATUS: CLEOPATRA REQ #: [id number] JOHANNA: 01/13/25 08:[address]: Daljit Gallardo DEPT: [facility] Surgical RECD BY: Jose David Sorenson ENTERED: 01/13/25 11:16 SP TYPE: Surgical OTHR DR: UNKNOWN,DOCTOR Tissues: A - Stone Procedures: Gross Exam Level 1 Crystalline Analysis
--- NOTE | 2025-01-13 08:54 | W.PM.PROC2 ---
Procedure Note - Detailed Date of Procedure 01/13/25 Pre-op Diagnosis Bladder stone, left ureteral stone Post-op Diagnosis Other (1. Bladder stone 2. Minimal BPH 3. Bulbous urethral stricture 4. No left ureteral stone) Procedure Performed Cystoscopy, urethral dilatation, left ureteroscopy, laser lithotripsy bladder stone extraction Surgeon Daljit Gallardo MD Anesthesia General Description of Procedure Patient brought to the operative suite was prepped draped in routine sterile fashion while in a dorsal lithotomy position after the uneventful induction of a general anesthetic. Cystoscopy was undertaken with a 21 F rigid cystoscope. He has a moderately constricting bulbous urethral stricture which I dilated from 18-28 F with Jaison sounds. He has mild lateral lobe hyperplasia of the prostate without a median lobe prostatic urethra was estimated 2 cm. Bladder shows a 1.5 cm stone in the dependent portion. The mucosa is otherwise normal and there are no additional foreign body or neoplasm. He has a single orthotopic ureteral orifice bilaterally. 0.035 in glidewire was advanced into the left renal pelvis under fluoroscopy and the distal ureter is dilated with an 8F/10F dilator. Left distal ureteroscopy was undertaken with a short tapered semi-rigid ureteral scope. Ureter was normal and there is no stone in the ureter. Mucosa is. Attention is then turned to the bladder stone using a 550 minutes micron [employer] [place] laser fiber it was fractured into several small pieces all of which were evacuated with either an Ellik or a grasping forceps. There was minimal trauma and I opted not to leave an indwelling catheter. The patient tolerated the procedure well was taken recovery good condition. Drains No Pathology Yes Complications No immediate complications Condition Stable
--- NOTE | 2025-01-13 09:23 | SUR.PHASEI ---
0921: Simple mask removed.
--- NOTE | 2025-01-13 10:47 | SUR.PHASEII ---
1035. Pt ready for discharge. Pt wanted to finish crackers before getting dressed.
--- NOTE | 2025-01-13 11:15 | SUR.PHASEII ---
1050 Pt developed nose bleed. Awaiting for another ride.
--- NOTE | 2025-01-13 11:21 | SUR.PHASEII ---
1121 Nurse prototype engineer manager at bedside, family member would like to go to ER for nose bleed. Nurse prototype engineer manager calling prefabricated houses trimmer to coordinate move to ER from Post op.
== END 2025-01-13 11:26 | disposition home or self-care (01) ==
PROVIDERS: Visit Provider Urology
PROC: (CPT 52352; principal; 2025-01-13 08:15)
DX: N21.0 Calculus in bladder (principal); N35.912 Unspecified bulbous urethral stricture, male; N40.0 Benign prostatic hyperplasia without lower urinary tract symptoms; E78.5 Hyperlipidemia, unspecified; I10 Essential (primary) hypertension; I48.91 Unspecified atrial fibrillation; I25.10 Atherosclerotic heart disease of native coronary artery without angina pectoris; M47.892 Other spondylosis, cervical region; R31.9 Hematuria, unspecified; F17.290 Nicotine dependence, other tobacco product, uncomplicated; Z79.01 Long term (current) use of anticoagulants; Z98.890 Other specified postprocedural states; Z95.0 Presence of cardiac pacemaker; Z95.2 Presence of prosthetic heart valve; Z86.79 Personal history of other diseases of the circulatory system; Z80.1 Family history of malignant neoplasm of trachea, bronchus and lung
CPT/HCPCS: 52353; 36415; 82365; 85610; 88300; 99199; C1769; J0690; J2003; J2405; J2704; J3010; J7120

== ENCOUNTER 2025-03-29 07:36 | Outpatient (RCR) | payer MEDICARE, OTHER, SELFPAY ==
[2025-01-28 12:03] LABS: INR 1.8; Prothrombin Time 21.8 Seconds (11.1-14.7)
[2025-02-28 12:03] LABS: INR 2.5; Prothrombin Time 27.2 Seconds (11.1-14.7)
[2025-03-29 08:23] LABS: INR 2.9; Prothrombin Time 30.4 Seconds (11.1-14.7)
== END 2025-04-28 23:59 | disposition home or self-care (01) ==
LOC: ANHLAB 07:36
PROVIDERS: Visit Provider Internal Medicine Cardiovascular Disease
DX: I48.91 Unspecified atrial fibrillation (principal)
CPT/HCPCS: 36415; 85610

== ENCOUNTER 2025-03-29 07:37 | Outpatient (CLI) | payer MEDICARE, OTHER, SELFPAY ==
--- OUTSIDE RECORDS SUMMARY | 2025-03-29 07:40 | XMS_ITS | Clinical Summary ---
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
--- OUTSIDE RECORDS SUMMARY | 2025-03-29 07:40 | XMS_ITS | Encounter Summary ---
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 documented as of this encounter Plan of Treatment Not on file documented as of this encounter Procedures Procedure Name Priority Date/Time Associated Diagnosis Comments SCAN - LABS 05/27/2024 documented in this encounter Results * SCAN - LABS (05/27/2024) us Provider Scanning Final Result documented in this encounter Visit Diagnoses Not on filedocumented in this encounter Care Teams Fitter / Welder Relationship Specialty Start Date End Date Zoraida Mancia MD [address] [place] [address] PCP - General Family Medicine 09/10/19 02/03/25 Sreekanth Rodriguez MD [address] [place] [address] PCP - General Family Medicine 02/04/25 documented as of this encounter
--- OUTSIDE RECORDS SUMMARY | 2025-03-29 07:40 | XMS_ITS | Referral Summary ---
Author Organization [facility] Address [address] [place] [address] Care Team Providers Care Credit Control Officer Name Role Phone Sreekanth Rodriguez MD Primary Care Provider Encounters Date Type Department Care Team Description 02/28/2025 Anticoagulation Visit [facility] Cardiology [address] [place] [address] [place] [phone] Monae Rock RN Atrial fibrillation, unspecified type (HCC) (Primary Dx) 02/25/2025 9:15 AM CDT Office Visit [place] [address] [place] [phone] Monae Pearce MD 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 (Primary Dx); NICM (nonischemic cardiomyopathy) (HCC); S/P mitral valve replacement; Pulmonary hypertension (HCC); Hyperlipidemia LDL goal <100; Paroxysmal atrial fibrillation (HCC) 02/18/2025 Results Follow-Up [facility] Cardiology [address] [place] [address] [place] [phone] Monae Pearce MD Transthoracic Echo (TTE) Complete W Doppler/CF 02/16/2025 10:15 AM CDT Ancillary Procedure [facility] Cardiology [address] [place] [address] [address] [place] [address] NICM (nonischemic cardiomyopathy) (HCC); Presence of permanent cardiac pacemaker; Pulmonary hypertension (HCC); S/P mitral valve replacement 02/04/2025 Telephone [facility] Medical [facility] Cardiology [address] [place] [address] Monae Pearce MD 01/28/2025 Anticoagulation Visit [facility] Cardiology [address] [place] [phone] Monae Rock RN Atrial fibrillation, unspecified type (HCC) (Primary Dx) from Last 3 Months Allergies No known active allergies Medications multivitamin tabletIndicatio ns:Vitamin Deficiency Prevention Take 1 tablet by mouth every morning Active metoprolol XL (TOPROL-XL) 25 mg extended release tabletIndicatio ns:NICM (nonischemic cardiomyopathy) (HCC) TAKE 1 TABLET DAILY 90 tablet 3 05/24/2024 Active warfarin (COUMADIN) 4 mg tablet TAKE 2 TABLETS DAILY 180 tablet 3 01/24/2025 Active finasteride (PROSCAR) 5 mg tablet Take 1 tablet (5 mg total) by mouth daily 02/01/2025 Active Active Problems Problem Noted Date Diagnosed Date PVC (premature ventricular contraction) 10/13/20 NSVT (nonsustained ventricular tachycardia) 10/03 NICM (nonischemic cardiomyopathy) 01/07/2023 Presence of permanent cardiac pacemaker 06/09/20 Overview (07/22/2023): Medtronic Clair Dual Pacemaker. Dx; Second Degree aVB. DOI 04/28/2020-Dr Thomson. Gisselle. Carelink remote. Device is followed @ [facility] device clinic. Heart block AV second degree 01/11/2020 Coronary artery disease invo lving kasaan coronary artery of kasaan heart without angina pectoris 06/16/2019 Atrial fibrillation [...] Tobacco: Some Days Cigars Smokeless Tobacco: Never Tobacco Cessation:Ready to [...] Sexual Orientation Straight 09/09/2019 9: 00 PM BEATER OUT Last Filed Vital Signs Vital Sign Reading Time Taken Comments Blood Pressure 110/60 02/25/2025 9:08 AM CDT Pulse 63 02/25/2025 9:08 AM CDT Temperature 36.4 C (97.5 F) 08/17/2020 2:03 PM CDT Respiratory Rate 18 04/29/2020 8:00 AM CDT Oxygen Saturation 96% 02/25/2025 9:08 AM CDT Inhaled Oxygen Concentration - - Weight 82.1 kg (181 lb) 02/25/2025 9:08 AM CDT Height 180.3 cm (5' 11 ) 02/25/2025 9:08 AM CDT Body Mass Index 25.24 02/25/2025 9:08 AM CDT Plan of Treatment Not on file Medical Devices Implanted Type Area Nanotechnician Device Identifier Shelf Expiration Date Model / Serial / Lot Medtronic Cardiac Rhythm Mgmt 5076-52 Capsurefix Novus 6.2fr 2mm 52cm Bipolar Screw In Implantable Latex Free - [id number] - [id number] Implanted:Qty: 1 on 04/28/2020 by Benoit Thomson MD at [facility] Lead Left: Heart Medtronic Inc 01/05/2022 5076-52 / [id number] / Medtronic Cardiac Rhythm Mgmt 5076-45 Capsurefix Novus 6.2fr 2mm 45cm Bipolar Screw In Implantable - [id number] - [id number] Implanted:Qty: 1 on 04/28/2020 by Benoit Thomson MD at [facility] Lead Left: Heart Medtronic Inc 01/09/2022 5076-45 / [id number] / Medtronic Cardiac Rhythm Mgmt [id number] [place] Wirelessly Pacemaker Cardiac - [id number] - [id number] Implanted:Qty: 1 on 04/28/2020 by Benoit Thomson MD at [facility] Pacemaker Left: Heart Medtronic Inc 07/31/2021 [id number] / [id number] / Procedures Procedure Name Priority Date/Time Associated Diagnosis Comments PROTIME-INR Routine 02/28/2025 TRANSTHORACIC ECHO (TTE) COMPLETE W DOPPLER/CF WO CONTRAST Routine 02/16/2025 10:42 AM CDT NICM (nonischemic cardiomyopathy) (HCC) Presence of permanent cardiac pacemaker Pulmonary hypertension (HCC) S/P mitral valve replacement PROTIME-INR Routine 01/28/2025 from Last 3 Months Results * (ABNORMAL) Protime-INR (02/28/2025) INR 2.50(A) 0.90 - 1.10 EXTERNAL LAB Blood 02/28/2025 us Historical Provider MD LAB BLOOD ORDERABLES Aimee oscar Result EXTERNAL LAB * TRANSTHORACIC ECHO (TTE) COMPLETE W DOPPLER/CF WO CONTRAST (02/16/2025 10:42 AM CDT) Anatomical Region Laterality Modality Ultrasound 02/16/2025 10:0 8 AM CDT Narrative 02/16/2025 10:44 PM CDT [facility] Medical Group Cardiology [address] [facility] [address], [place] [address] [address] [facility] [address], [place] [address] P:[phone] P:[phone] Echocardiographic Report Patient Name: JABARI LAWSON L : 1945 Study Date: 02/16/2025 10:08:21 AM Gender: M Tech: Location: [facility] Provider: MONAE PEARCE Height(Cm): 180 BSA: 2.07 Weight(Kg): 85.3 Heart Rate: 66 BP: 153 / 87 Quality: Good Order Provider: MONAE PEARCE PROCEDURES: Echocardiographic Report: Transthoracic echocardiogram with complete 2D, M-Mode, and color Doppler examination. With Strain Analysis. INDICATIONS: Mitral Valve Replacement, Nonischemic cardiomyopathy, Z95.0 Presence of cardiac pacemaker, and I27.20 Pulmonary hypertension, unspecified. MEASUREMENTS: 2D/MM Value Range Doppler Value Range EF Mod BP 43 % [ 52 - 72 ] SUMMER Vmax 1.83 cm2 [ 2.00 - 4.00 ] EF Teich MM 41 % [ 52 - 72 ] AV Mean PG 4 mmHg LVIDd 2D 4.85 cm [ 4.20 - 5.80 ] AV Peak Jadon 1.47 m/s [ 1.00 - 1.70 ] LVIDd MM 5.02 cm [ 4.20 - 5.80 ] AV Peak PG 9 mmHg LVIDs 2D 3.87 cm [ 2.50 - 4.00 ] AV VTI 29.77 cm LVIDs MM 4.01 cm [ 2.50 - 4.00 ] LVOT Diam 1.96 cm [ 1.70 - 2.10 ] LVPWd 2D 1.15 cm [ 0.60 - 1.00 ] LVOT Peak Jadon 0.89 m/s [ 0.70 - 1.10 ] LVPWd MM 1.13 cm [ 0.60 - 1.00 ] LVOT VTI 20.88 cm IVSd 2D 1.43 cm [ 0.60 - 1.00 ] MV E Peak Jadon 0.90 m/s [ 0.60 - 1.30 ] IVSd MM 1.72 cm [ 0.60 - 1.00 ] MV A Peak Jadon 1.11 m/s [ 1.00 - 1.20 ] LA Dimension MM 4.44 cm [ 3.00 - 4.00 ] MV Mean PG 3 mmHg [ 0 - 5 ] AoR Diam MM 4.01 cm [ 3.10 - 3.70 ] MV PHT 100 msec [ 20 - 100 ] LA Volume Index 45 cc/m2 [ 16 - 34 ] MVA PHT 2.21 cm2 [ 2.00 - 4.00 ] ACS MM 2.33 cm [ 1.50 - 2.60 ] MV Decel Time 416 msec [ 104 - 258 ] PV Peak Jadon 1.22 m/s [ 0.40 - 0.80 ] TR Peak Jadon 2.57 m/s [ 1.00 - 2.80 ] TR Peak PG 26 mmHg Lateral E` 0.05 m/s [ 0.10 - 0.15 ] E` 0.04 m/s E/E` 17 2D/MM Value Range Doppler Value Range - FINDINGS: Interpretation Site: Exam was interpreted at home. Left Ventricle: Normal left ventricular size. Moderate concentric left ventricular hypertrophy. Mild global left ventricular systolic dysfunction. Impaired diastolic relaxation Grade I. Ejection fraction is measured at 43 %. Global Longitudinal Strain is -10 %. Right Ventricle: Mild enlargement of right ventricle. Mild right ventricular hypokinesis. Left Atrium: There is mild enlargement of left atrium. Right Atrium: The right atrium is normal in size. Linear artifact in right atrium suggestive of catheter(s), pacemaker lead(s), or ICD lead(s). Atrial Septum: Normal atrial septum. Mitral Valve: Trivial regurgitation of the mitral valve. Mean gradient of 4.00 mmHg. Valve area of 2.2 cm2. Aortic Valve: Mild aortic stenosis. Valve area of 1.9 cm2. Aortic cusps appear mildly sclerotic. Mild aortic valve regurgitation. Tricuspid Valve: Normal appearance of the tricuspid valve. Estimated peak RVSP is 34 mmHg. Moderate tricuspid regurgitation. Pulmonic Valve: Normal appearance of the pulmonic valve. Mild pulmonic regurgitation. Pericardium: Normal pericardium with no significant pericardial effusion. Aorta: Normal aortic root. IVC: Normal size and normal respiratory collapse consistent with normal right atrial pressure (<5 mmHg). CONCLUSIONS: Normal left ventricular size. Moderate concentric left ventricular hypertrophy. Mild global left ventricular systolic dysfunction. Impaired diastolic relaxation Grade I. Ejection fraction is measured at 43 %. Global Longitudinal Strain is -10 %. Mild enlargement of right ventricle. Mild right ventricular hypokinesis. Pacemaker leads noted in RA/RV. Mild enlargement of left atrium. S/P bio MVR. Normal appearing bioprosthesis. Trivial MR. Mean gradient 4 mmHg. Mild aortic stenosis. Valve area of 1.9 cm2. Aortic cusps appear mildly sclerotic. Mild aortic valve regurgitation. RVSP 34 mmHg. Moderate tricuspid regurgitation. Mild pulmonic regurgitation. Electronically Signed By: Lloyd Klein MD, [facility] 02/16/2025 10:44:06 PM CDT Procedure Note Lloyd Klein MD - 02/16/2025 [facility] Medical Group Cardiology [address] [facility] [address], [place] [address] [address] [facility] [address], [place] [address] P:[phone] P:[phone] Echocardiographic Report Patient Name: HILARIOJABARI MINER L : 1945 Study Date: 02/16/2025 10:08:21 AM Gender: M Tech: Location: [facility] Provider: MONAE PEARCE Height(Cm): 180 BSA: 2.07 Weight(Kg): 85.3 Heart Rate: 66 BP: 153 / 87 Quality: Good Order Provider: MONAE PEARCE PROCEDURES: Echocardiographic Report: Transthoracic echocardiogram with complete 2D, M-Mode, and color Dopplerexamination. With Strain Analysis. INDICATIONS: Mitral Valve Replacement, Nonischemic cardiomyopathy, Z95.0 Presence ofcardiac pacemaker, and I27.20 Pulmonary hypertension, unspecified. MEASUREMENTS: 2D/MM Value Range Doppler ValueRange EF Mod BP 43 % [ 52 - 72 ] SUMMER Vmax 1.83cm2 [ 2.00 - 4.00 ] EF Teich MM 41 % [ 52 - 72 ] AV Mean PG 4mmHg LVIDd 2D 4.85 cm [ 4.20 - 5.80 ] AV Peak Jadon 1.47m/s [ 1.00 - 1.70 ] LVIDd MM 5.02 cm [ 4.20 - 5.80 ] AV Peak PG 9mmHg LVIDs 2D 3.87 cm [ 2.50 - 4.00 ] AV VTI 29.77cm LVIDs MM 4.01 cm [ 2.50 - 4.00 ] LVOT Diam 1.96 cm[ 1.70 - 2.10 ] LVPWd 2D 1.15 cm [ 0.60 - 1.00 ] LVOT Peak Jadon 0.89m/s [ 0.70 - 1.10 ] LVPWd MM 1.13 cm [ 0.60 - 1.00 ] LVOT VTI 20.88cm IVSd 2D 1.43 cm [ 0.60 - 1.00 ] MV E Peak Jadon 0.90m/s [ 0.60 - 1.30 ] IVSd MM 1.72 cm [ 0.60 - 1.00 ] MV A Peak Jadon 1.11m/s [ 1.00 - 1.20 ] LA Dimension MM 4.44 cm [ 3.00 - 4.00 ] MV Mean PG 3 mmHg[ 0 - 5 ] AoR Diam MM 4.01 cm [ 3.10 - 3.70 ] MV PHT 100msec [ 20 - 100 ] LA Volume Index 45 cc/m2 [ 16 - 34 ] MVA PHT 2.21cm2 [ 2.00 - 4.00 ] ACS MM 2.33 cm [ 1.50 - 2.60 ] MV Decel Time 416msec [ 104 - 258 ] PV Peak Jadon 1.22 m/s [ 0.40 - 0.80 ] TR Peak Jadon 2.57 m/s [ 1.00 - 2.80 ] TR Peak PG 26 mmHg Lateral E` 0.05 m/s [ 0.10 - 0.15 ] E` 0.04 m/s E/E` 17 2D/MM Value Range Doppler ValueRange - FINDINGS: Interpretation Site: Exam was interpreted at home. Left Ventricle: Normal left ventricular size. Moderate concentric left ventricularhypertrophy. Mild global left ventricular systolic dysfunction. Impaired diastolicrelaxation Grade I. Ejection fraction is measured at 43 %. Global Longitudinal Strain is -10%. Right Ventricle: Mild enlargement of right ventricle. Mild right ventricular hypokinesis. Left Atrium: There is mild enlargement of left atrium. Right Atrium: The right atrium is normal in size. Linear artifact in right atriumsuggestive of catheter(s), pacemaker lead(s), or ICD lead(s). Atrial Septum: Normal atrial septum. Mitral Valve: Trivial regurgitation of the mitral valve. Mean gradient of 4.00 mmHg.Valve area of 2.2 cm2. Aortic Valve: Mild aortic stenosis. Valve area of 1.9 cm2. Aortic cusps appear mildlysclerotic. Mild aortic valve regurgitation. Tricuspid Valve: Normal appearance of the tricuspid valve. Estimated peak RVSP is 34 mmHg.Moderate tricuspid regurgitation. Pulmonic Valve: Normal appearance of the pulmonic valve. Mild pulmonic regurgitation. Pericardium: Normal pericardium with no significant pericardial effusion. Aorta: Normal aortic root. IVC: Normal size and normal respiratory collapse consistent with normal rightatrial pressure (<5 mmHg). CONCLUSIONS: Normal left ventricular size. Moderate concentric left ventricularhypertrophy. Mild global left ventricular systolic dysfunction. Impaired diastolicrelaxation Grade I. Ejection fraction is measured at 43 %. Global Longitudinal Strain is -10%. Mild enlargement of right ventricle. Mild right ventricular hypokinesis.Pacemaker leads noted in RA/RV. Mild enlargement of left atrium. S/P bio MVR. Normal appearing bioprosthesis. Trivial MR. Mean gradient 4mmHg. Mild aortic stenosis. Valve area of 1.9 cm2. Aortic cusps appear mildlysclerotic. Mild aortic valve regurgitation. RVSP 34 mmHg. Moderate tricuspid regurgitation. Mild pulmonicregurgitation. Electronically Signed By: Lloyd Klein MD, [facility] 02/16/2025 10:44:06 PM CDT Monae Pearce MD CV ECHO PROCEDURES Final Result * (ABNORMAL) Protime-INR (01/28/2025) INR 1.80(A) 0.90 - 1.10 EXTERNAL LAB Blood 01/28/2025 Historical Provider LAB BLOOD ORDERABLES Aimee moore Result EXTERNAL LAB from Last 3 Months Insurance MEDICARE [place] MEDICARE FOR LIFE MEDICARE FOR LIFE MEDICARE FOR LIFE Advance Directives For more information, please contact: [phone] * Full Code (Latest Code Status on File) Date Activated Date Inactivated Comments 04/28/2020 2:49 PM 04/29/2020 5:16 PM Care Teams Credit Control Officer Relationship Specialty Start Date End Date Sreekanth Rodriguez MD [address] [facility] [address] [place] [address] PCP - General Family Medicine 02/04/25
--- OUTSIDE RECORDS SUMMARY | 2025-03-29 07:40 | XMS_ITS | Clinical Summary ---
Author Organization [facility] Address [address] [place] [address] Care Team Providers Care Chart Calculator Name Role Phone Zoraida Mancia MD Primary Care Provider Aris lynn Source Comments [facility],non-owned Affiliates and Associated Physician Practices is amultiple site organization consisting of ambulatory clinics and hospital sitesin [place], [place], [place] and [place]. This disclosure is being madepursuant to the Care Everywhere program and may not contain all information available regarding this patient. Last updated 18.[facility] Allergies No known active allergies Medications * Be aware that medications may not be up to date on this document. Alwaysverify current medications with the patient. 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 Immunizations Immunization Administration Dates Next Due Covandrea Stoddard primary monoval ent 12+ yr 0.3mL Purple [...] Assigned at Male 02/18/2022 4:44 PM CDT Legal Sex Male 6:50 PM CDT Gender Identity Male 02/18/2022 4:44 [...] 1-dose 75+ series) 2021 COVID-19 VACCINE ( - 2024-25 season) 2024 08/16/2021, 01/21/2021, 12/31/2020 DEPRESSION SCREENING 11/03/2024 INFLUENZA VACCINE (Season Ended) 2025 08/16/2021, 12/08/2004, 10/15/2003, Additional history exists DTAP/TDAP/TD VACCINES (2 - Td or Tdap) [...] on patient's age to complete this topic Insurance MEDICARE [employer] MEDICARE SELF PAY NO INSURANCE Member Subscriber Plan / Payer (Ef fective for All Dates) Name:DenaventuraJabari Member ID:Not on file Relation to Subscriber:Not on file Name:JABARI LAWSON Subscriber ID:Not on file (Home) Address: [facility] [place] [address] Payer ID:Not on file Group ID:Not on file Type:Self Pay Address: [place], [place] MEDICARE Advance Directives * Full Code (Latest Code Status on File) Date Activated Date Inactivated Comments 02/02/2022 5:06 AM 02/03/2022 1:29 PM Care Teams Chart Calculator Relationship Specialty Start Date End Date Zoraida Mancia MD [address] [place] [address] PCP - General Family Medicine 02/02/22
--- OUTSIDE RECORDS SUMMARY | 2025-03-29 07:40 | XMS_ITS | Encounter Summary ---
Author Organization [facility] Healthcare Address [address] [place] [address] Care Team Providers Care Web Retailer Name Role Phone Sreekanth Rodriguez MD Primary Care Provider Encounter Details Date Type Department Care Team (Latest Contact Info) Description 02/18/2025 Results Follow-Up [facility] Medical Group Cardiology [address] [phone] Anup Contreras MD [address] [facility] [address] [place] [address] Transthoracic Echo (TTE) Complete W Doppler/CF Social History Tobacco Use Types Packs/Day Years [...] Sexual Orientation Straight 09/09/2019 9: 00 PM 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
--- OUTSIDE RECORDS SUMMARY | 2025-03-29 07:40 | XMS_ITS | Encounter Summary ---
Author Organization [facility] Address [address] [place] [address] Care Team Providers Care Machinist Linotype Name Role Phone Zoraida Mancia MD Primary Care Provider Sreekanth Rodriguez MD Primary Care Provider Encounter Details Date Type Department Care Team (Late st Contact Info) Description 04/29/2024 Orders Only [facility] [place] Health Information Management [address] [place] [address] Scanning, Provider Social History Tobacco Use Types [...] Sexual Orientation Straight 09/09/2019 9: 00 PM CHUTE TENDER documented as of this encounter Plan of Treatment Not on file documented as of this encounter Procedures Procedure Name Priority Date/Time Associated Diagnosis Comments SCAN - LABS 04/29/2024 documented in this encounter Results * SCAN - LABS (04/29/2024) us Provider Scanning Final Result documented in this encounter Visit Diagnoses Not on filedocumented in this encounter Care Teams Machinist Linotype Relationship Specialty Start Date End Date Zoraida Mancia MD [address] [place] [address] PCP - General Family Medicine 09/10/19 02/03/25 Sreekanth Rodriguez MD [address] [place] [address] PCP - General Family Medicine 02/04/25 documented as of this encounter
--- OUTSIDE RECORDS SUMMARY | 2025-03-29 07:40 | XMS_ITS | Clinical Summary ---
Author Organization [facility] Address [address] [place] [address] Care Team Providers Care Game Farm Helper Name Role Phone Sreekanth Rodriguez MD Primary Care Provider Allergies No known [...] Gisselle. Carelink remote. Device is followed @ [facility] device clinic. 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 06/16/2019 Atrial fibrillation 03/10/2019 S/P mitral valve replacement 03/04/2019 Hyperlipidemia LDL goal <100 03/04/2019 Pre-diabetes 03/04/2019 Pulmonary hypertension 03/04/2019 Encounters Date Type Department Care Team Description 02/28/2025 Anticoagulation Visit [facility] [address] [place] [address] [place] [phone] Monae Rock RN Atrial fibrillation, unspecified type (HCC) (Primary Dx) 02/25/2025 9:15 AM CDT Office Visit [place] [address] [place] [phone] Monae Pearce MD Coronary artery disease involving tejon coronary artery of tejon heart without angina pectoris (Primary Dx); NICM (nonischemic cardiomyopathy) (HCC); S/P mitral valve replacement; Pulmonary hypertension (HCC); Hyperlipidemia LDL goal <100; Paroxysmal atrial fibrillation (HCC) 02/18/2025 Results Follow-Up [facility]iology [address] [place] [address] [place] [phone] Monae Pearce MD Transthoracic Echo (TTE) Complete W Doppler/CF 02/16/2025 10:15 AM CDT Ancillary Procedure [place] [address] [place] [phone] NICM (nonischemic cardiomyopathy) (HCC); Presence of permanent cardiac pacemaker; Pulmonary hypertension (HCC); S/P mitral valve replacement 02/04/2025 Telephone [place] [address] [place] [phone] Monae Pearce MD 01/28/2025 Anticoagulation Visit [place] [address] [place] [phone] Monae Rock RN Atrial fibrillation, unspecified type [...] Comments aortic valve disease Brother Cancer Father Jabari Lung cancer Father Jabari Cancer Mother Leona Lung cancer Mother Leona Anesthesia problems Neg Hx Relation Name Status Comments Brother Alive Father Jabari (Age 73) Mother Leona (Age 41) Sister [...] 2:53 PM CDT Sexual Orientation Straight 09/09/2019 9 :00 PM TIME SIGNAL WIRER Obstetrics History Last Filed Vital Signs Vital [...] 02/25/2025 9:08 AM CDT Plan of Treatment Health Maintenance Due Date Last Done Comments Depression Screening 1945 Hepatitis C Screening 1945 Hepatitis B Screening 1964 Abdominal Aortic Aneurysm (A AA) Screen 2011 Well Visit 65+ 2011 Fall Risk Assessment 04/29/2021 04/29/2020 Covid-19 Vaccine (2023-2 5 season) 2024 09/10/2023, 08/30/2022, 08/16/2021, Additional history exists Influenza Vaccine (Season Ended) 2025 06/16/2023, 08/16/2021, 08/31/2020, Additional history exists DTaP/Tdap/Td Vaccine (2 - Td or Tdap) 08/05/2029 08/05/2019, 05/09/2000 Zoster Vaccine Completed 10/07/2019, 08/05/2019 Pneumococcal vaccine 65+ Completed 06/16/2023, 11/2017 Medical Devices Implanted Type Area Airplane Cleaner Device Identifier Shelf Expiration Date Model / Serial / Lot Medtronic Cardiac Rhythm Mgmt 5076-52 Capsurefix Novus 6.2fr 2mm 52cm Bipolar Screw In Implantable Latex Free - [id number] - [id number] Implanted:Qty: 1 on 04/28/2020 by Benoit Thomson MD at [facility] Lead Left: Heart Medtronic Inc 01/05/2022 5076-52 / [id number] / Medtronic Cardiac Rhythm Mgmt 5076-45 Capsurefix Novus 6.2fr 2mm 45cm Bipolar Screw In Implantable - [id number] - [id number] Implanted:Qty: 1 on 04/28/2020 by Benoit Thomson MD at [facility] Lead Left: Heart Medtronic Inc 01/09/2022 5076-45 / [id number] / Medtronic Cardiac Rhythm Mgmt [id number] [place] Wire[employer] Pacemaker Cardiac - [id number] - [id number] Implanted:Qty: 1 on 04/28/2020 by Benoit Thomson MD at [facility] Pacemaker Left: Heart Medtronic Inc 07/31/2021 [id number] / [id number] / Procedures Procedure Name Priority Date/Time [...] EXTERNAL LAB Blood 02/28/2025 us Historical Provider LAB BLOOD ORDERABLES Aimee oscar Result EXTERNAL LAB * TRANSTHORACIC ECHO (TTE) COMPLETE W DOPPLER/CF WO CONTRAST (02/16/2025 10:42 AM CDT) Anatomical Region Laterality Modality Ultrasound 02/16/2025 10:0 8 AM CDT Narrative 02/16/2025 10:44 PM CDT [facility] Cardiology [address] [facility] [address], [place] [address] [address] [facility] [address], [place] [address] P:[phone] P:[phone] Echocardiographic Report Patient Name: JABARI LAWSON L : 1945 Study Date: 02/16/2025 10:08:21 AM Gender: M Tech: Location: [facility] Provider: MONAE PEARCE Height(Cm): 180 BSA: 2.07 [...] regurgitation. Electronically Signed By: Lloyd Klein MD, [facility] 02/16/2025 10:44:06 PM CDT Procedure Note Lloyd Klein MD - 02/16/2025 [facility] Cardiology [address] [facility] [address], [place] [address] [address] [facility] [address], [place] [address] P:[phone] P:[phone] Echocardiographic Report Patient Name: JABARI LAWSON L : 1945 Study Date: 02/16/2025 10:08:21 AM Gender: M Tech: Location: [place] Ref Provider: MONAE PEARCE Height(Cm): 180 BSA: 2.07 [...] pulmonicregurgitation. Electronically Signed By: Lloyd Klein MD, [facility] 02/16/2025 10:44:06 PM CDT Monae Pearce MD CV ECHO PROCEDURES Final Result * (ABNORMAL) Protime-INR (01/28/2025) INR 1.80(A) 0.90 - 1.10 EXTERNAL LAB Blood 01/28/2025 Historical Provider LAB BLOOD ORDERABLES Aimee moore Result EXTERNAL LAB from Last 3 Months Insurance MEDICARE [facility] Address: [address] [address] [place] [address] Poppin MEDICARE FOR LIFE MEDICARE FOR LIFE MEDICARE [facility] FOR LIFE Advance Directives For more information, please contact: [phone] * Full Code (Latest Code Status on File) Date Activated Date Inactivated Comments 04/28/2020 2:49 PM 04/29/2020 5:16 PM Care Teams Game Farm Helper Relationship Specialty Start Date End Date Sreekanth Rodriguez MD [address] [facility] [address] [place] [address] PCP - General Family Medicine 02/04/25
[2025-03-29 08:14] LABS: Basophils Percent Auto 1.1 % (0.2-1.2); Eosinophils Absolute Auto 0.1 K/mm3 (0-0.3); Eosinophils Percent Auto 3.8 % (0-4.4); Hematocrit 40.4 % (42.0-52.0); Hemoglobin 13.4 g/dL (14.0-18.0); Lymphocytes Absolute Auto 1.04 K/mm3 (0.9-3.2); Mean Corpuscular HGB Conc 33.2 g/dl (32-36); Mean Corpuscular Hemoglobin 33.3 pg (26-34); Mean Corpuscular Volume 100.5 fl (80-100); Monocytes Absolute Auto 0.5 K/mm3 (0.1-0.6); Monocytes Percent Auto 12.1 % (2.6-8.5); Neutrophils Absolute Auto 2.1 K/mm3 (1.3-6.7); Platelet Count Result 158 k/mm3 (150-375); Red Blood Count 4.02 M/mm3 (4.6-6.20); Red Cell Distribution Width 13.3 % (11.5-14.5); White Blood Count 3.7 K/mm3 (4.5-10.0)
[2025-03-29 09:04] LABS: Alanine Aminotransferase 19 U/L (6-50); Albumin Level 4.1 g/dL (3.5-5.1); Alkaline Phosphatase 70 U/L (38-126); Anion Gap 5 mmol/L (4-12); Aspartate Amino Transferase 33 U/L (17-59); Bilirubin,Total 1.7 mg/dL (0.2-1.3); Blood Urea Nitrogen 26 mg/dL (9-20); Carbon Dioxide 29 mmol/L (22-30); Chloride 106 mmol/L (98-107); Cholesterol 180 mg/dL (0-200); Estimated Glomerular Filt Rate > 60; Glucose 126 mg/dL (65-110); HDL Direct 60 mg/dL; Potassium 4.3 mmol/L (3.4-5.0); Sodium 140 mmol/L (137-145); Triglycerides 89 mg/dL (<150)
[2025-03-29 09:15] LABS: LDL Cholesterol Direct 80 mg/dL
[2025-03-29 09:33] LABS: Prostate Specific Antigen 1.3 ng/mL (< OR = 4.0)
[2025-03-29 09:38] LABS: Hemoglobin A1C 6.3 % (<5.7)
[2025-04-02 20:18] LABS: Vitamin D 1,25 (OH)2 Total 41 pg/mL (18-72); Vitamin D2 1,25 (OH)2 <8 pg/mL; Vitamin D3 1,25 (OH)2 41 pg/mL
== END 2025-03-29 07:38 | disposition home or self-care (01) ==
PROVIDERS: PCP Family Medicine; Visit Provider Physician Assistant
DX: Z12.5 Encounter for screening for malignant neoplasm of prostate (principal); R79.89 Other specified abnormal findings of blood chemistry; D50.8 Other iron deficiency anemias; I42.8 Other cardiomyopathies; R73.03 Prediabetes; Z13.220 Encounter for screening for lipoid disorders; E55.9 Vitamin D deficiency, unspecified
CPT/HCPCS: 36415; 80053; 80061; 82652; 83036; 84153; 85025; G0103

== ENCOUNTER 2025-04-29 10:57 | Outpatient (CLI) | payer MEDICARE, OTHER, SELFPAY ==
[2025-04-29 11:37] LABS: Basophils Absolute Auto 0.1 K/mm3 (0.0-0.1); Basophils Percent Auto 1.3 % (0.2-1.2); Eosinophils Absolute Auto 0.1 K/mm3 (0-0.3); Eosinophils Percent Auto 2.2 % (0-4.4); Hemoglobin 13.6 g/dL (14.0-18.0); Immature Granulocyte Absolute 0.01 K/mm3 (0.00-0.031); Immature Granulocyte Percent A 0.2 % (0-0.5); Lymphocytes Absolute Auto 1.25 K/mm3 (0.9-3.2); Lymphocytes Percent Auto 26.9 % (18.3-44.2); Mean Corpuscular HGB Conc 32.4 g/dl (32-36); Mean Corpuscular Hemoglobin 32.8 pg (26-34); Mean Corpuscular Volume 101.2 fl (80-100); Mean Platelet Volume 9.2 fl (7.4-10.4); Monocytes Absolute Auto 0.4 K/mm3 (0.1-0.6); Monocytes Percent Auto 8.4 % (2.6-8.5); Neutrophils Absolute Auto 2.8 K/mm3 (1.3-6.7); Platelet Count Result 157 k/mm3 (150-375); Red Blood Count 4.15 M/mm3 (4.6-6.20); Red Cell Distribution Width 13.1 % (11.5-14.5); White Blood Count 4.7 K/mm3 (4.5-10.0)
[2025-04-29 12:54] LABS: Hemoglobin A1C. 6.4 % (<5.7)
[2025-04-29 13:12] LABS: Iron 148 ug/dL (49-181)
[2025-04-29 13:18] LABS: Alanine Aminotransferase 22 U/L (6-50); Albumin Level 4.1 g/dL (3.5-5.1); Alkaline Phosphatase 68 U/L (38-126); Anion Gap 8 mmol/L (4-12); Aspartate Amino Transferase 37 U/L (17-59); Bilirubin,Total 1.4 mg/dL (0.2-1.3); Blood Urea Nitrogen 30 mg/dL (9-20); Calcium 9.8 mg/dL (8.4-10.2); Carbon Dioxide 28 mmol/L (22-30); Chloride 105 mmol/L (98-107); Estimated Glomerular Filt Rate > 60; Glucose 103 mg/dL (65-110); Potassium 4.4 mmol/L (3.4-5.0); Sodium 141 mmol/L (137-145); Total Protein 7.5 g/dL (6.3-8.2)
[2025-04-29 13:23] LABS: Percent Iron Saturation 50 % (20-50)
[2025-04-29 14:09] LABS: Vitamin B12 > 1000.0 pg/mL (239-931)
[2025-05-04 08:58] LABS: Vitamin D 1,25 (OH)2 Total 54 pg/mL (18-72); Vitamin D2 1,25 (OH)2 <8 pg/mL; Vitamin D3 1,25 (OH)2 54 pg/mL
== END 2025-04-29 10:58 | disposition home or self-care (01) ==
PROVIDERS: PCP Family Medicine; Referring Provider Family Medicine; Visit Provider Physician Assistant
DX: R73.01 Impaired fasting glucose (principal); E55.9 Vitamin D deficiency, unspecified; N20.0 Calculus of kidney; R79.89 Other specified abnormal findings of blood chemistry; R17 Unspecified jaundice; D64.9 Anemia, unspecified
CPT/HCPCS: 36415; 80053; 82607; 82652; 83036; 83540; 83550; 85025

== ENCOUNTER 2025-05-23 08:15 | Outpatient (RCR) | payer MEDICARE, OTHER, SELFPAY ==
[2025-04-29 11:50] LABS: INR 3.8; Prothrombin Time 35.6 Seconds (11.1-14.7)
[2025-05-11 12:31] LABS: INR 3.6; Prothrombin Time 34.3 Seconds (11.1-14.7)
[2025-05-23 09:07] LABS: INR 3.0; Prothrombin Time 30.2 Seconds (11.1-14.7)
== END 2025-07-01 07:37 | disposition home or self-care (01) ==
LOC: ANHLAB 08:15
PROVIDERS: PCP Family Medicine; Visit Provider Internal Medicine Cardiovascular Disease
DX: I48.91 Unspecified atrial fibrillation (principal)
CPT/HCPCS: 36415; 85610

== ENCOUNTER 2025-08-04 11:33 | Outpatient (CLI) | payer MEDICARE, OTHER, SELFPAY ==
--- NOTE | ~2025-08-04 | XR_ITS ---
EXAMINATION: XR abdomen/kub 1V DATE: 08/04/2025 11:50 INDICATION: Kidney stone. TECHNIQUE: A supine view of the abdomen on 2 radiographs was obtained. COMPARISON: 12/09/2024 FINDINGS: Moderate amount of air and stool in nondilated large bowel. Small amount of air in nondilated small bowel. Bones appear osteopenic. Moderate dextro comps curvature of the lumbar spine. No radiographic evidence for renal, ureteral or bladder calculi. Stable subcentimeter phlebolith in the right hemipelvis IMPRESSION: 1. Nonspecific abdomen with a moderate amount of stool. If symptoms persist or worsen, consider a short-term follow-up study or additional imaging for further assessment. Reviewed, dictated and finalized at location Q. IMPRESSION: 1. Nonspecific abdomen with a moderate amount of stool. If symptoms persist or worsen, consider a short-term follow-up study or additio nal imaging for further assessment.
--- OUTSIDE RECORDS SUMMARY | 2025-08-04 11:55 | XMS_ITS | Encounter Summary ---
Author Organization [facility] Healthcare Address [address] [place] [address] Care Team Providers Care Informaticist Name Role Phone Zoraida Mancia MD Primary Care Provider Sreekanth Rodriguez MD Primary Care Provider Encounter Details Date Type Department Care Team (Late st Contact Info) Description 07/29/2024 Orders Only [facility] Health Information Management [address] [place] [address] Scanning, Provider Social History Tobacco Use Types [...] Sexual Orientation Straight 09/09/2019 9: 00 PM STOREROOM CLERK documented as of this encounter Plan of Treatment Not on file documented as of this encounter Procedures Procedure Name Priority Date/Time Associated Diagnosis Comments SCAN - LABS 07/29/2024 documented in this encounter Results * SCAN - LABS (07/29/2024) us Provider Scanning Final Result documented in this encounter Visit Diagnoses Not on filedocumented in this encounter Care Teams Informaticist Relationship Specialty Start Date End Date Zoraida Mancia MD [address] [place] [address] PCP - General Family Medicine 09/10/19 02/03/25 Sreekanth Rodriguez MD [address] [place] [address] PCP - General Family Medicine 02/04/25 documented as of this encounter
--- OUTSIDE RECORDS SUMMARY | 2025-08-04 11:55 | XMS_ITS | Encounter Summary ---
Author Organization [facility] Healthcare Address [address] [place] [address] Care Team Providers Care Service Or Work Dispatcher Name Role Phone Zoraida Mancia MD Primary Care Provider Sreekanth Rodriguez MD Primary Care Provider Encounter Details Date Type Department Care Team (Late st Contact Info) Description 12/24/2024 Orders Only [facility] [place] Information Management [address] [place] [address] Scanning, Provider Social History Tobacco Use Types [...] Sexual Orientation Straight 09/09/2019 9: 00 PM TROUBLE CLERK documented as of this encounter Plan of Treatment Not on file documented as of this encounter Procedures Procedure Name Priority Date/Time Associated Diagnosis Comments SCAN - LABS 12/24/2024 documented in this encounter Results * SCAN - LABS (12/24/2024) us Provider Scanning Final Result documented in this encounter Visit Diagnoses Not on filedocumented in this encounter Care Teams Service Or Work Dispatcher Relationship Specialty Start Date End Date Zoraida Mancia MD [address] [place] [address] PCP - General Family Medicine 09/10/19 02/03/25 Sreekanth Rodriguez MD [address] [place] [address] PCP - General Family Medicine 02/04/25 documented as of this encounter
--- OUTSIDE RECORDS SUMMARY | 2025-08-04 11:55 | XMS_ITS | Encounter Summary ---
Author Organization [facility] Healthcare Address [address] [place] [address] Care Team Providers Care Neon Tube Pumper Name Role Phone Zoraida Mancia MD Primary Care Provider Sreekanth Rodriguez MD Primary Care Provider Encounter Details Date Type Department Care Team (Late st Contact Info) Description 03/27/2023 Orders Only [facility] Health Information Management [address] [place] [address] Scanning, Provider Social History Tobacco Use Types [...] Sexual Orientation Straight 09/09/2019 9: 00 PM CARBON CLEANER documented as of this encounter Plan of Treatment Not on file documented as of this encounter Procedures Procedure Name Priority Date/Time Associated Diagnosis Comments SCAN - RADIOLOGY/IMAGING 03/27/2023 documented in this encounter Results * SCAN - RADIOLOGY/IMAGING (03/27/2023) Anatomical Region Laterality Modality Other us Provider Scanning Final Result documented in this encounter Visit Diagnoses Not on filedocumented in this encounter Care Teams Neon Tube Pumper Relationship Specialty Start Date End Date Zoraida Mancia MD [address] [place] [address] PCP - General Family Medicine 09/10/19 02/03/25 Sreekanth Rodriguez MD [address] [place] [address] PCP - General Family Medicine 02/04/25 documented as of this encounter
--- OUTSIDE RECORDS SUMMARY | 2025-08-04 11:55 | XMS_ITS | Clinical Summary ---
Author Organization [facility] Address [address] [place] [address] Care Team Providers Care Drum Drier Operator Name Role Phone Zoraida Mancia MD Primary Care Provider Aris lynn Source Comments [facility],non-owned Affiliates and Associated Physician Practices is amultiple site organization consisting of ambulatory clinics and hospital sitesin [place], [place], [place] and [place]. This disclosure is being madepursuant to the Care Everywhere program and may not contain all information available regarding this patient. Last updated 18.[facility] Allergies No known active allergies Medications * [...] Done Comments MEDICARE AWV 12 MONTHS 1945 ZOSTER VACCINE (1 of 2) 1996 PNEUMOCOCCAL VACCINE 50+ (2 of 2 - PCV) 11/03/2018 11/03/2017 Respiratory Syncytial Virus (RSV) Vaccine Pt: or over 60 yrs (1 - 1-dose 75+ series) 2021 DEPRESSION SCREENING 11/03/2024 COVID-19 VACCINE ( season) 2025 08/16/2021, 01/21/2021, 12/31/2020 INFLUENZA VACCINE (#1) 2025 , 12/08/2004, 10/15/2003, Additional history exists DTAP/TDAP/TD VACCINES [...] patient's age to complete [place] [address] MEDICARE [facility] MEDICARE SELF PAY NO INSURANCE Member Subscriber Plan / Payer (Ef fective for All Dates) Name:Hilariokristofer Jabari Eric Member ID:Not on file Relation to Subscriber:Not on file Name:HILARIOKRISTOFERJABARI Eric Subscriber ID:Not on file (Home) Address: [address] [place] [address] Payer ID:Not on file Group ID:Not on file Type:Self Pay Address: [place], [place] MEDICARE Advance Directives * Full Code (Latest Code Status on File) Date Activated Date Inactivated Comments 02/02/2022 5:06 AM 02/03/2022 1:29 PM Care Teams Drum Drier Operator Relationship Specialty Start Date End Date Zoraida Mancia MD [address] [place] [address] PCP - General Family Medicine 02/02/22
--- OUTSIDE RECORDS SUMMARY | 2025-08-04 11:55 | XMS_ITS | Encounter Summary ---
Author Organization [facility] Healthcare Address [address] [place] [address] Care Team Providers Care Drugless Physician Name Role Phone Zoraida Mancia MD Primary Care Provider Sreekanth Rodriguez MD Primary Care Provider Encounter Details Date Type Department Care Team (Late st Contact Info) Description 08/30/2024 Orders Only [facility] Health Information Management [address] [place] [address] Scanning, Provider Social History Tobacco Use Types [...] Sexual Orientation Straight 09/09/2019 9: 00 PM WASTE HANDLING TECHNICIAN documented as of this encounter Plan of Treatment Not on file documented as of this encounter Procedures Procedure Name Priority Date/Time Associated Diagnosis Comments SCAN - LABS 08/30/2024 documented in this encounter Results * SCAN - LABS (08/30/2024) us Provider Scanning Final Result documented in this encounter Visit Diagnoses Not on filedocumented in this encounter Care Teams Drugless Physician Relationship Specialty Start Date End Date Zoraida Mancia MD [address] [place] [address] PCP - General Family Medicine 09/10/19 02/03/25 Sreekanth Rodriguez MD [address] [place] [address] PCP - General Family Medicine 02/04/25 documented as of this encounter
--- OUTSIDE RECORDS SUMMARY | 2025-08-04 11:55 | XMS_ITS | Encounter Summary ---
Author Organization [facility] Healthcare Address [address] [place] [address] Care Team Providers Care Licensed Professional Counselor Name Role Phone Zoraida Mancia MD Primary Care Provider Sreekanth Rodriguez MD Primary Care Provider Encounter Details Date Type Department Care Team (Late st Contact Info) Description 01/23/2024 Orders Only [facility] [place] Health Information Management [address] [place] [address] Scanning, Provider Social History Tobacco Use Types [...] Sexual Orientation Straight 09/09/2019 9: 00 PM ADMISSIONS NURSE documented as of this encounter Plan of Treatment Not on file documented as of this encounter Procedures Procedure Name Priority Date/Time Associated Diagnosis Comments SCAN - LABS 01/23/2024 documented in this encounter Results * SCAN - LABS (01/23/2024) us Provider Scanning Final Result documented in this encounter Visit Diagnoses Not on filedocumented in this encounter Care Teams Licensed Professional Counselor Relationship Specialty Start Date End Date Zoraida Mancia MD [address] [place] [address] PCP - General Family Medicine 09/10/19 02/03/25 Sreekanth Rodriguez MD [address] [place] [address] PCP - General Family Medicine 02/04/25 documented as of this encounter
--- OUTSIDE RECORDS SUMMARY | 2025-08-04 11:55 | XMS_ITS | Encounter Summary ---
Author Organization [facility] Healthcare Address [address] [place] [address] Care Team Providers Care Superintendent Tests Name Role Phone Zoraida Mancia MD Primary Care Provider Sreekanth Rodriguez MD Primary Care Provider Encounter Details Date Type Department Care Team (Late st Contact Info) Description 01/28/2025 Orders Only [facility] [place] Health Information Management [address] [place] [address] Scanning, Provider Social History Tobacco Use Types [...] Sexual Orientation Straight 09/09/2019 9: 00 PM PIPELINE GANG SUPERVISOR documented as of this encounter Plan of Treatment Not on file documented as of this encounter Procedures Procedure Name Priority Date/Time Associated Diagnosis Comments SCAN - LABS 01/28/2025 documented in this encounter Results * SCAN - LABS (01/28/2025) us Provider Scanning Final Result documented in this encounter Visit Diagnoses Not on filedocumented in this encounter Care Teams Superintendent Tests Relationship Specialty Start Date End Date Zoraida Mancia MD [address] [place] [address] PCP - General Family Medicine 09/10/19 02/03/25 Sreekanth Rodriguez MD [address] [place] [address] PCP - General Family Medicine 02/04/25 documented as of this encounter
--- OUTSIDE RECORDS SUMMARY | 2025-08-04 11:55 | XMS_ITS | Encounter Summary ---
Author Organization [facility] Healthcare Address [address] [place] [address] Care Team Providers Care Oncology Social Worker Name Role Phone Zoraida Mancia MD Primary Care Provider Sreekanth Rodriguez MD Primary Care Provider Encounter Details Date Type Department Care Team (Late st Contact Info) Description 12/28/2022 Orders Only [facility] [place] Information Management [address] [place] [address] Scanning, Provider Social History Tobacco Use Types [...] Sexual Orientation Straight 09/09/2019 9: 00 PM POWER LINEMAN TECHNICIAN documented as of this encounter Plan of Treatment Not on file documented as of this encounter Procedures Procedure Name Priority Date/Time Associated Diagnosis Comments SCAN - LABS 12/28/2022 documented in this encounter Results * SCAN - LABS (12/28/2022) us Provider Scanning Final Result documented in this encounter Visit Diagnoses Not on filedocumented in this encounter Care Teams Oncology Social Worker Relationship Specialty Start Date End Date Zoraida Mancia MD [address] [place] [address] PCP - General Family Medicine 09/10/19 02/03/25 Sreekanth Rodriguez MD [address] [facility] [address] [place] [address] PCP - General Family Medicine 02/04/25 documented as of this encounter
--- OUTSIDE RECORDS SUMMARY | 2025-08-04 11:55 | XMS_ITS | Encounter Summary ---
Author Organization [facility] Healthcare Address [address] [place] [address] Care Team Providers Care Executive Housekeeper Name Role Phone Zoraida Mancia MD Primary Care Provider Sreekanth Rodriguez MD Primary Care Provider Encounter Details Date Type Department Care Team (Late st Contact Info) Description 12/25/2022 Orders Only [facility] [place] Health Information Management [address] [place] [address] Scanning, Provider Social History Tobacco Use Types [...] Sexual Orientation Straight 09/09/2019 9: 00 PM PROOF CLERK documented as of this encounter Plan of Treatment Not on file documented as of this encounter Procedures Procedure Name Priority Date/Time Associated Diagnosis Comments SCAN - RADIOLOGY/IMAGING 12/25/2022 documented in this encounter Results * SCAN - RADIOLOGY/IMAGING (12/25/2022) Anatomical Region Laterality Modality Other us Provider Scanning Final Result documented in this encounter Visit Diagnoses Not on filedocumented in this encounter Care Teams Executive Housekeeper Relationship Specialty Start Date End Date Zoraida Mancia MD [address] [place] [address] PCP - General Family Medicine 09/10/19 02/03/25 Sreekanth Rodriguez MD [address] [place] [address] PCP - General Family Medicine 02/04/25 documented as of this encounter
--- OUTSIDE RECORDS SUMMARY | 2025-08-04 11:55 | XMS_ITS | Encounter Summary ---
Author Organization [facility] Healthcare Address [address] [place] [address] Care Team Providers Care Exterior Interior Specialist Name Role Phone Sreekanth Rodriguez MD Primary Care Provider Encounter Details Date Type Department Care Team (Late st Contact Info) Description 02/28/2025 Orders Only [facility] [place] Health Information Management [address] [place] [address] Scanning, Provider Social History Tobacco Use Types [...] Sexual Orientation Straight 09/09/2019 9: 00 PM CLINICAL DOCUMENTATION IMPROVEMENT SPECIALIST documented as of this encounter Plan of Treatment Not on file documented as of this encounter Procedures Procedure Name Priority Date/Time Associated Diagnosis Comments SCAN - LABS 02/28/2025 documented in this encounter Results * SCAN - LABS (02/28/2025) us Provider Scanning Final Result documented in this encounter Visit Diagnoses Not on filedocumented in this encounter Care Teams Exterior Interior Specialist Relationship Specialty Start Date End Date Sreekanth Rodriguez MD [address] [facility] [address] [place] [address] PCP - General Family Medicine 02/04/25 documented as of this encounter
--- OUTSIDE RECORDS SUMMARY | 2025-08-04 11:55 | XMS_ITS | Encounter Summary ---
Author Organization [facility] Healthcare Address [address] [place] [address] Care Team Providers Care Geospatial Systems Integrator Name Role Phone Zoraida Mancia MD Primary Care Provider Sreekanth Rodriguez MD Primary Care Provider Encounter Details Date Type Department Care Team (Late st Contact Info) Description 03/12/2023 Orders Only [facility] Health Information Management [address] [place] [address] Scanning, Provider Social History Tobacco Use Types [...] Sexual Orientation Straight 09/09/2019 9: 00 PM CENTRAL SERVICE TECH documented as of this encounter Plan of Treatment Not on file documented as of this encounter Procedures Procedure Name Priority Date/Time Associated Diagnosis Comments SCAN - LABS 03/12/2023 documented in this encounter Results * SCAN - LABS (03/12/2023) us Provider Scanning Final Result documented in this encounter Visit Diagnoses Not on filedocumented in this encounter Care Teams Geospatial Systems Integrator Relationship Specialty Start Date End Date Zoraida Mancia MD [address] [place] [address] PCP - General Family Medicine 09/10/19 02/03/25 Sreekanth Rodriguez MD [address] [facility] [address] [place] [address] PCP - General Family Medicine 02/04/25 documented as of this encounter
--- OUTSIDE RECORDS SUMMARY | 2025-08-04 11:55 | XMS_ITS | Clinical Summary ---
Author Organization [facility] Address [address] [place] [address] Care Team Providers Care Project Intern Name Role Phone Sreekanth Rodriguez MD Primary Care Provider Allergies No known active allergies Medications multivitamin tabletIndicatio ns:Vitamin Deficiency Prevention Take 1 tablet by mouth every morning Active warfarin (COUMADIN) 4 mg tablet TAKE 2 TABLETS DAILY 180 tablet 3 01/24/2025 Active finasteride (PROSCAR) 5 mg tablet Take 1 tablet (5 mg total) by mouth daily 02/01/2025 Active metoprolol XL (TOPROL-XL) 25 mg extended release tabletIndicatio ns:NICM (nonischemic cardiomyopathy) ([facility]) TAKE 1 TABLET DAILY 90 tablet 2 05/17/2025 Active Active Problems Problem Noted Date Diagnosed Date PVC (premature ventricular contraction) 10/13/20 NSVT (nonsustained ventricular tachycardia) 10/03 NICM (nonischemic cardiomyopathy) 01/07/2023 Presence of permanent cardiac pacemaker 06/09/20 Overview (07/22/2023): Medtronic [place] Dual Pacemaker. Dx; Second Degree aVB. DOI 04/28/2020-Dr Thomson. Gisselle. Carelink remote. Device is followed @ [facility] device clinic. Heart block AV second degree 01/11/2020 Coronary artery disease invo lving [place] coronary artery of [place] heart without angina pectoris 06/16/2019 Atrial fibrillation 03/10/2019 S/P mitral valve replacement 03/04/2019 Hyperlipidemia LDL goal <100 03/04/2019 Pre-diabetes 03/04/2019 Pulmonary hypertension 03/04/2019 Encounters Date Type Department Care Team Description 07/29/2025 Anticoagulation Visit [facility] Cardiology at [address] [place] [address] Xiao Skinner RN Atrial fibrillation, unspecified type (HCC) (Primary Dx) 07/01/2025 Anticoagulation Visit [facility] Cardiology [address] [facility] [address] [place] [address] Xiao Skinner RN Atrial fibrillation, unspecified type (HCC) (Primary Dx) 06/03/2025 Orders Only [facility] [address] [facility] [address] [place] [address] Christina Castorena MD 05/23/2025 Orders Only [facility] Health Information Management [address] [place] [address] Scanning, Provider 05/23/2025 Anticoagulation Visit [facility] Cardiology [address] [place] [address] Xiao Skinner RN Atrial fibrillation, unspecified type (HCC) (Primary Dx) 05/11/2025 Anticoagulation Visit [facility] Cardiology [address] [place] [address] Graciela Sy RN Atrial fibrillation, unspecified type (HCC) (Primary Dx) 05/11/2025 Telephone [facility] Cardiology [address] [place] [address] Anup Contreras MD from Last 3 Months Immunizations Immunization Administration [...] Sexual Orientation Straight 09/09/2019 9: 00 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 Obstetrics History Last Filed Vital Signs Vital [...] 9:08 AM CDT Height 180.3 cm (5' 11) 02/25/2025 9:08 AM CDT Body Mass Index 25.24 02/25/2025 9:08 AM CDT Plan of Treatment Health Maintenance Due Date Last Done Comments Depression Screening 1945 Hepatitis C Screening 1945 Hepatitis B Screening 1964 Abdominal Aortic Aneurysm (A AA) Screen 2011 Well Visit 65+ 2011 Fall Risk Assessment 04/29/2021 04/29/2020 Covid-19 Vaccine (2024-2 6 season) 2025 09/10/2023, 08/30/2022, 08/16/2021, Additional history exists Influenza Vaccine (#1) 2025 , 08/16/2021, 08/31/2020, Additional history exists DTaP/Tdap/Td Vaccine (2 - Td or Tdap) 08/05/2029 08/05/2019, 05/09/2000 Zoster Vaccine Completed 10/07/2019, 08/05/2019 Pneumococcal vaccine 65+ Completed 06/16/2023, 11/2017 Medical Devices Implanted Type Area Police Guard Device Identifier Shelf Expiration Date Model / Serial / Lot Medtronic Cardiac Rhythm Mgmt 5076-52 Capsurefix Novus 6.2fr 2mm 52cm Bipolar Screw In Implantable Latex Free - [id number] - [id number] Implanted:Qty: 1 on 04/28/2020 by Benoit Thomson MD at [facility] Lead Left: Heart Medtronic Inc 01/05/2022 5076-52 / [id number] / Medtronic Cardiac Rhythm Mgmt 5076-45 Capsurefix Novus 6.2fr 2mm 45cm Bipolar Screw In Implantable - [id number] - [id number] Implanted:Qty: 1 on 04/28/2020 by Benoit Thomson MD at [facility] Lead Left: Heart Medtronic Inc 01/09/2022 5076-45 / [id number] / Medtronic Cardiac Rhythm Mgmt [id number] [place] Wirelessly Pacemaker Cardiac - [id number] - [id number] Implanted:Qty: 1 on 04/28/2020 by Benoit Thomson MD at [facility] Pacemaker Left: Heart Medtronic Inc 07/31/2021 [id number] / [id number] / Procedures Procedure Name Priority Date/Time Associated Diagnosis Comments PROTIME-INR Routine 07/29/2025 PROTIME-INR Routine 07/01/2025 DEVICE CHECK - REMOTE Routine 06/03/2025 9:23 PM CDT SCAN - LABS 05/23/2025 PROTIME-INR Routine 05/23/2025 PROTIME-INR Routine 05/11/2025 from Last 3 Months Results * (ABNORMAL) Protime-INR (07/29/2025) INR 3.00(A) 0.90 - 1.10 EXTERNAL LAB Blood us Historical Provider LAB BLOOD ORDERABLES Aimee moore Result EXTERNAL LAB * (ABNORMAL) Protime-INR (07/01/2025) INR 2.80(A) 0.90 - 1.10 EXTERNAL LAB Blood us Historical Provider LAB BLOOD ORDERABLES Aimee moore Result EXTERNAL LAB * DEVICE CHECK - REMOTE (06/03/2025 9:23 PM CDT) Anatomical Region Laterality Modality Other 06/03/2025 9:23 PM CDT Narrative 07/01/2025 5:24 PM CDT Interpretation Summary: Battery and Leads (BL) Normal parameters noted on battery and lead(s) --- 9.6 yrs remaining longevity (implanted 2019). Lead impedance, sensing, and threshold trends stable and appropriate. No short V-V intervals. Presenting Rhythm (IN) Atrial Sensing-Ventricular Sensing (-VS) --- /VS (SR) 60s/70s with PVC. Arrhythmic events (AE) Nonsustained SVT event(s) identified --- Since 03/05/25: One Fast A/V detection, 10 sec, with EGM appearing to show AT. Nonsustained VT event(s) identified --- 3 VT-NS detections, with EGMs appearing to show NSVT, max 4 sec & brief AT. Anticoagulation (AC) Patient prescribed Warfarin (Coumadin) Patient on anticoagulant therapy Transmission Information (TI) Device Summary Report Procedure Note Christina Castorena MD - 07/01/2025 Interpretation Summary: Battery and Leads (BL) Normal parameters noted on battery and lead(s) --- 9.6 yrs remaininglongevity (implanted 2019). Lead impedance, sensing, and thresholdtrends stable and appropriate. No short V-V intervals. Presenting Rhythm (IN) Atrial Sensing-Ventricular Sensing (-VS) --- /VS (SR) 60s/70s withPVC. Arrhythmic events (AE) Nonsustained SVT event(s) identified --- Since 03/05/25: One Fast A/Vdetection, 10 sec, with EGM appearing to show AT. Nonsustained VT event(s) identified --- 3 VT-NS detections, with EGMsappearing to show NSVT, max 4 sec & brief AT. Anticoagulation (AC) Patient prescribed Warfarin (Coumadin) Patient on anticoagulant therapy Transmission Information (TI) Device Summary Report Result [facility] Christina Castorena MD CV CARDIAC SERVICES PROCEDURES Final Result * SCAN - LABS (05/23/2025) Provider Scanning Final Result * (ABNORMAL) Protime-INR (05/23/2025) INR 3.00(A) 0.90 - 1.10 EXTERNAL LAB Blood Result [facility] Historical Provider LAB BLOOD ORDERABLES Aimee l Result Performing Organization Address City[facility]/ZIP Co de Phone Number EXTERNAL LAB * (ABNORMAL) Protime-INR (05/11/2025) INR 3.60(A) 0.90 - 1.10 EXTERNAL LAB Blood Result [facility] Historical Provider LAB BLOOD ORDERABLES Edit ed Result - Final EXTERNAL LAB from Last 3 Months Insurance MEDICARE FOR LIFE MEDICARE FOR [place] [address] MEDICARE FOR LIFE Advance Directives For more information, please contact: [phone] * Full Code (Latest Code Status on File) Date Activated Date Inactivated Comments 04/28/2020 2:49 PM 04/29/2020 5:16 PM Care Teams Project Intern Relationship Specialty Start Date End Date Sreekanth Rodriguez MD [address] [facility] [address] [place] [address] PCP - General Family Medicine 02/04/25
--- OUTSIDE RECORDS SUMMARY | 2025-08-04 11:55 | XMS_ITS | Encounter Summary ---
Author Organization [facility] Healthcare Address [address] [place] [address] Care Team Providers Care Rack Washer Name Role Phone Zoraida Mancia MD Primary Care Provider Sreekanth Rodriguez MD Primary Care Provider Encounter Details Date Type Department Care Team (Late st Contact Info) Description 01/03/2025 Orders Only [facility] Health Information Management [address] [place] [id number] Scanning, Provider Social History Tobacco Use Types [...] Sexual Orientation Straight 09/09/2019 9: 00 PM ORCHESTRATOR documented as of this encounter Plan of Treatment Not on file documented as of this encounter Procedures Procedure Name Priority Date/Time Associated Diagnosis Comments CARDIOLOGY DOCUMENT SCAN 01/03/2025 documented in this encounter Results * Cardiology Document Scan (01/03/2025) Anatomical Region Laterality Modality Other us Provider Scanning CV CARDIAC SERVICES PROCEDURES Final Result documented in this encounter Visit Diagnoses Not on filedocumented in this encounter Care Teams Rack Washer Relationship Specialty Start Date End Date Zoraida Mancia MD [address] [place] [address] PCP - General Family Medicine 09/10/19 02/03/25 Sreekanth Rodriguez MD [address] [place] [address] PCP - General Family Medicine 02/04/25 documented as of this encounter
--- OUTSIDE RECORDS SUMMARY | 2025-08-04 11:55 | XMS_ITS | Encounter Summary ---
Author Organization [facility] Healthcare Address [address] [place] [address] Care Team Providers Care Veterans' Counselor Name Role Phone Zoraida Mancia MD Primary Care Provider Sreekanth Rodriguez MD Primary Care Provider Encounter Details Date Type Department Care Team (Late st Contact Info) Description 09/28/2024 Orders Only [facility] Information Management [address] [place] [id number] Scanning, Provider Social History Tobacco Use Types [...] Sexual Orientation Straight 09/09/2019 9: 00 PM SOLE FILLER documented as of this encounter Plan of Treatment Not on file documented as of this encounter Procedures Procedure Name Priority Date/Time Associated Diagnosis Comments SCAN - LABS 09/28/2024 documented in this encounter Results * SCAN - LABS (09/28/2024) us Provider Scanning Final Result documented in this encounter Visit Diagnoses Not on filedocumented in this encounter Care Teams Veterans' Counselor Relationship Specialty Start Date End Date Zoraida Mancia MD [address] [place] [address] PCP - General Family Medicine 09/10/19 02/03/25 Sreekanth Rodriguez MD [address] [place] [address] PCP - General Family Medicine 02/04/25 documented as of this encounter
--- OUTSIDE RECORDS SUMMARY | 2025-08-04 11:55 | XMS_ITS | Encounter Summary ---
Author Organization [facility] Healthcare Address [address] [place] [address] Care Team Providers Care Observation Assistant Name Role Phone Zoraida Mancia MD Primary Care Provider Sreekanth Rodriguez MD Primary Care Provider Encounter Details Date Type Department Care Team (Late st Contact Info) Description 11/24/2024 Orders Only [facility] Health Information Management [address] [place] [address] Scanning, Provider Social History Tobacco Use Types [...] Sexual Orientation Straight 09/09/2019 9: 00 PM THEATRICAL PERFORMER documented as of this encounter Plan of Treatment Not on file documented as of this encounter Procedures Procedure Name Priority Date/Time Associated Diagnosis Comments SCAN - LABS 11/24/2024 documented in this encounter Results * SCAN - LABS (11/24/2024) us Provider Scanning Final Result documented in this encounter Visit Diagnoses Not on filedocumented in this encounter Care Teams Observation Assistant Relationship Specialty Start Date End Date Zoraida Mancia MD [address] [place] [address] PCP - General Family Medicine 09/10/19 02/03/25 Sreekanth Rodriguez MD [address] [place] [address] PCP - General Family Medicine 02/04/25 documented as of this encounter
--- OUTSIDE RECORDS SUMMARY | 2025-08-04 11:55 | XMS_ITS | Clinical Summary ---
Author Organization [facility] Address [address] [place] [address] Care Team Providers Care Cinetechnician Name Role Phone Unavailable Primary Care Provider Unavailabl e Social History Tobacco Use Types Packs/Day Years Used Date Smoking Tobacco: Never Assessed Sex and Gender Information Value Date Recorded Sex Assigned at Not on file Legal Sex Male 11:55 AM CHALK TESTER Gender Identity Not on file Sexual Orientation Not on file Plan of Treatment Health Maintenance Due Date Last Done Comments Hepatitis C Virus (HCV) Screening 1945 TdaP Immunization 1945 Zoster Immunization (3 of 3) 12/02/2019 10/07/2019, 04/23/2017 Respiratory Syncytial Virus (RSV) Immunization (Adult) (1 - 1-dose 75+ series) 2021 Influenza Immunization (#1) 07/04/202508/04, 08/01/2019, 09/19/2018, Additional history exists SARS-COV-2 Immunization ( season) 2025 01/21/2021, 12/31/2020 Pneumococcal Immunization (50+ years) Completed 12/20/2016, 12/11/2015 Pneumococcal Immunization Combined Discontinued 12/20/2016, 12/11/2015 Hepatitis B Immunization Aged Out No longer eligible based on patient's age to complete this topic Human Papillomavirus (HPV) Immunization Aged Out No longer eligible based on patient's age to complete this topic Meningococcal Immunization (ACWY) Aged Out No longer eligible based on patient's age to complete this topic Rotavirus Immunization Aged Out No lo nger eligible based on patient's age to complete this topic
--- OUTSIDE RECORDS SUMMARY | 2025-08-04 11:55 | XMS_ITS | Encounter Summary ---
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 documented as of this encounter Plan of Treatment Not on file documented as of this encounter Procedures Procedure Name Priority Date/Time Associated Diagnosis Comments SCAN - LABS 10/29/2024 documented in this encounter Results * SCAN - LABS (10/29/2024) us Provider Scanning Final Result documented in this encounter Visit Diagnoses Not on filedocumented in this encounter Care Teams Parts Person Relationship Specialty Start Date End Date Zoraida Mancia MD [address] [place] [address] PCP - General Family Medicine 09/10/19 02/03/25 Sreekanth Rodriguez MD [address] [place] [address] PCP - General Family Medicine 02/04/25 documented as of this encounter
== END 2025-08-04 11:34 | disposition home or self-care (01) ==
PROVIDERS: PCP Family Medicine; Visit Provider Urology
DX: M85.88 Other specified disorders of bone density and structure, other site (principal); N20.0 Calculus of kidney
CPT/HCPCS: 74018

== ENCOUNTER 2025-09-15 10:07 | Outpatient (RCR) | payer MEDICARE, OTHER, SELFPAY ==
[2025-07-01 08:59] LABS: INR 2.8; Prothrombin Time 28.5 Seconds (11.1-14.7)
[2025-07-29 08:32] LABS: INR 3.0; Prothrombin Time 30.4 Seconds (11.1-14.7)
[2025-09-01 10:26] LABS: INR 3.3; Prothrombin Time 32.4 Seconds (11.1-14.7)
[2025-09-15 10:50] LABS: INR 3.5; Prothrombin Time 33.8 Seconds (11.1-14.7)
== END 2025-09-29 23:59 | disposition home or self-care (01) ==
LOC: ANHLAB 10:07
PROVIDERS: PCP Family Medicine; Visit Provider Internal Medicine Cardiovascular Disease
DX: I48.91 Unspecified atrial fibrillation (principal)
CPT/HCPCS: 36415; 85610

== ENCOUNTER 2025-10-29 08:34 | Outpatient (CLI) | payer MEDICARE, OTHER, SELFPAY ==
--- OUTSIDE RECORDS SUMMARY | 2025-10-29 08:37 | XMS_ITS | Encounter Summary ---
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 documented as of this encounter Plan of Treatment Not on file documented as of this encounter Procedures Procedure Name Priority Date/Time Associated Diagnosis Comments SCAN - LABS 12/24/2024 documented in this encounter Results * SCAN - LABS (12/24/2024) us Provider Scanning Final Result documented in this encounter Visit Diagnoses Not on filedocumented in this encounter Care Teams Supervisor Keymodule Assembly Relationship Specialty Start Date End Date Zoraida Mancia MD [address] [place] [address] PCP - General Family Medicine 09/10/19 02/03/25 Sreekanth Rodriguez MD [address] [place] [address] PCP - General Family Medicine 02/04/25 documented as of this encounter
--- OUTSIDE RECORDS SUMMARY | 2025-10-29 08:37 | XMS_ITS | Clinical Summary ---
Author Organization [facility] Address [address] [place] [address] Care Team Providers Care Public Service Representative Name Role Phone Sreekanth Rodriguez MD Primary [...] mg extended release tabletIndicatio ns:NICM (nonischemic cardiomyopathy) ([facility]) TAKE 1 TABLET DAILY 90 tablet 2 05/17/2025 Active Active Problems Problem Noted Date Diagnosed Date PVC (premature ventricular contraction) 10/13/20 NSVT (nonsustained ventricular tachycardia) 10/03 NICM (nonischemic cardiomyopathy) 01/07/2023 Presence of permanent cardiac pacemaker 06/09/20 Overview (07/22/2023): Medtronic [place] Dual Pacemaker. Dx; Second Degree aVB. DOI 04/28/2020-Dr Thomson. Gisselle. Carelink remote. Device is followed @ [place] device clinic. Heart block AV second degree 01/11/2020 Coronary artery disease invo lving igiugig coronary artery of igiugig heart without angina pectoris 06/16/2019 Atrial fibrillation 03/10/2019 S/P mitral valve replacement 03/04/2019 Hyperlipidemia LDL goal <100 03/04/2019 Pre-diabetes 03/04/2019 Pulmonary hypertension 03/04/2019 Encounters Date Type Department Care Team Description 10/24/2025 Telephone [facility] [address] 8[address] [place] [address] [place] [address] Benoit Thomson MD 10/12/2025 10:30 AM OIL AND GAS FIELD TECHNICIAN Office Visit [facility] [address] [place] [address] Office [address] [place] [address] Kaye Good NP PVC (premature ventricular contraction) (Primary Dx); NICM (nonischemic cardiomyopathy) (HCC); NSVT (nonsustained ventricular tachycardia) (HCC) 10/12/2025 9:30 AM OIL AND GAS FIELD TECHNICIAN Ancillary Procedure [facility] [address] [place] [address] [address] [place] [address] Heart block AV second degree (Primary Dx); Fitting and adjustment of cardiac pacemaker 09/30/2025 Anticoagulation Visit [facility] [address] [place] [address] [place] [phone] Antoinette Valentino RN Atrial fibrillation, unspecified type (HCC) (Primary Dx) 09/16/2025 Anticoagulation Visit [facility] [address] [place] [address] [place] [phone] Antoinette Valentino RN Atrial fibrillation, unspecified type (HCC) (Primary Dx) 09/02/2025 8:45 AM CDT Office Visit [facility] [address] [place] [address] [place] [phone] Anup Contreras MD S/P mitral valve replacement (Primary Dx); Pulmonary hypertension (HCC); Coronary artery disease involving igiugig coronary artery of igiugig heart without angina pectoris; NICM (nonischemic cardiomyopathy) (HCC); Presence of permanent cardiac pacemaker 09/01/2025 Telephone [facility] [address] [place] [address] [place] [phone] Anup Contreras MD 09/01/2025 Anticoagulation Visit [facility] [address] [place] [address] Laquita Beckham RN Atrial fibrillation, unspecified type (HCC) (Primary [...] Sexual Orientation Straight 09/09/2019 9: 00 PM OIL AND GAS FIELD TECHNICIAN Last Filed Vital Signs Vital Sign Reading Time Taken Comments Blood Pressure 119/70 10/12/2025 9:25 AM OIL AND GAS FIELD TECHNICIAN Pulse 82 10/12/2025 9:25 AM OIL AND GAS FIELD TECHNICIAN Temperature 36.4 C (97.5 F) 08/17/2020 2:03 PM CDT Respiratory Rate 18 04/29/2020 8:00 AM CDT Oxygen Saturation 97% 10/12/2025 9:25 AM OIL AND GAS FIELD TECHNICIAN Inhaled Oxygen Concentration - - Weight 82.6 kg (182 lb) 10/12/2025 9:25 AM OIL AND GAS FIELD TECHNICIAN Height 180.3 cm (5' 11) 10/12/2025 9:25 AM OIL AND GAS FIELD TECHNICIAN Body Mass Index 25.38 10/12/2025 9:25 AM OIL AND GAS FIELD TECHNICIAN Plan of Treatment Health Maintenance Due Date Last Done Comments Depression Screening 1945 Hepatitis C Screening 1945 Hepatitis B Screening 1964 Abdominal Aortic Aneurysm (A AA) Screen 2011 Well Visit 65+ 2011 Fall Risk Assessment 04/29/2021 04/29/2020 Covid-19 Vaccine (2024-12 6 season) 2025 09/10/2023, 08/30/2022, 08/16/2021, Additional history exists Influenza Vaccine (#1) 2025 3, 08/16/2021, 08/31/2020, Additional history exists DTaP/Tdap/Td Vaccine (2 - Td or Tdap) 08/05/2029 08/05/2019, 05/09/2000 Zoster Vaccine Completed 10/07/2019, 08/05/2019 Pneumococcal vaccine 65+ Completed 06/16/2023, 11/2017 Medical Devices Implanted Type Area Lab Rn Device Identifier Shelf Expiration Date Model / Serial / Lot Medtronic Cardiac Rhythm Mgmt 5076-52 Capsurefix Novus 6.2fr 2mm 52cm Bipolar Screw In Implantable Latex Free - [id number] - [id number] Implanted:Qty: 1 on 04/28/2020 by Benoit Thomson MD at [facility] Lead Left: Heart Medtronic Inc 01/05/2022 5076-52 / [id number] / Medtronic Cardiac Rhythm Mgmt 5076-45 Capsurefix Novus 6.2fr 2mm 45cm Bipolar Screw In Implantable - [id number] - [id number] Implanted:Qty: 1 on 04/28/2020 by Benoit Thomson MD at [facility] Lead Left: Heart Medtronic Inc 01/09/2022 5076-45 / [id number] / Medtronic Cardiac Rhythm Mgmt [id number] Clair Wirelessly Pacemaker Cardiac - [id number] - [id number] Implanted:Qty: 1 on 04/28/2020 by Benoit Thomson MD at [facility] Pacemaker Left: Heart Medtronic Inc 07/31/2021 [id number] / [id number] / Procedures Procedure Name Priority Date/Time Associated Diagnosis Comments PROTIME-INR Routine 09/30/2025 PROTIME-INR Routine 09/15/2025 PROTIME-INR Routine 09/01/2025 from Last 3 Months Results * (ABNORMAL) Protime-INR (09/30/2025) INR 2.20(A) 0.90 - 1.10 EXTERNAL LAB Blood Historical Provider MD LAB BLOOD ORDERABLES Aimee l Result EXTERNAL LAB * (ABNORMAL) Protime-INR (09/15/2025) INR 3.50(A) 0.90 - 1.10 EXTERNAL LAB Blood [facility] Provider MD LAB BLOOD ORDERABLES Aimee l Result EXTERNAL LAB * (ABNORMAL) Protime-INR (09/01/2025) INR 3.30(A) 0.90 - 1.10 EXTERNAL LAB Blood 09/01/2025 [facility] Provider MD LAB BLOOD ORDERABLES Aimee l Result Performing Organization Address [facility] Co de Phone Number EXTERNAL LAB from Last [address] [place] [address] [place] [address] MEDICARE [facility] EM[facility] [employer] MEDICARE FOR LIFE MEDICARE FOR LIFE MEDICARE FOR LIFE Advance Directives For more information, please contact: [phone] * Full Code (Latest Code Status on File) Date Activated Date Inactivated Comments 04/28/2020 2:49 PM 04/29/2020 5:16 PM Care Teams Public Service Representative Relationship Specialty Start Date End Date Sreekanth Rodriguez MD [address] [facility] [address] [place] [address] PCP - General Family Medicine 02/04/25
--- OUTSIDE RECORDS SUMMARY | 2025-10-29 08:37 | XMS_ITS | Encounter Summary ---
Author Organization [facility] Healthcare Address [address] [place] [address] Care Team Providers Care Oracle Iam Consultant Name Role Phone Zoraida Mancia MD Primary Care Provider Sreekanth Rodriguez MD Primary Care Provider Encounter Details Date Type Department Care Team (Late st Contact Info) Description 01/28/2025 Orders Only [facility] Health Information Management [address] [place] [phone] Scanning, Provider Social History Tobacco Use Types [...] Sexual Orientation Straight 09/09/2019 9: 00 PM BI ARCHITECT documented as of this encounter Plan of Treatment Not on file documented as of this encounter Procedures Procedure Name Priority Date/Time Associated Diagnosis Comments SCAN - LABS 01/28/2025 documented in this encounter Results * SCAN - LABS (01/28/2025) us Provider Scanning Final Result documented in this encounter Visit Diagnoses Not on filedocumented in this encounter Care Teams Oracle Iam Consultant Relationship Specialty Start Date End Date Zoraida Mancia MD [address] [place] [address] PCP - General Family Medicine 09/10/19 02/03/25 Sreekanth Rodriguez MD [address] [place] [address] PCP - General Family Medicine 02/04/25 documented as of this encounter
--- OUTSIDE RECORDS SUMMARY | 2025-10-29 08:37 | XMS_ITS | Encounter Summary ---
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 encounter Plan of Treatment Not on file documented as of this encounter Procedures Procedure Name Priority Date/Time Associated Diagnosis Comments SCAN - LABS 02/28/2025 documented in this encounter Results * SCAN - LABS (02/28/2025) us Provider Scanning Final Result documented in this encounter Visit Diagnoses Not on filedocumented in this encounter Care Teams Associate Chemist Relationship Specialty Start Date End Date Sreekanth Rodriguez MD [address] [facility] [address] [place] [address] PCP - General Family Medicine 02/04/25 documented as of this encounter
--- OUTSIDE RECORDS SUMMARY | 2025-10-29 08:37 | XMS_ITS | Clinical Summary ---
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
--- OUTSIDE RECORDS SUMMARY | 2025-10-29 08:37 | XMS_ITS | Encounter Summary ---
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 Plan of Treatment Not on file documented as of this encounter Procedures Procedure Name Priority Date/Time Associated Diagnosis Comments SCAN - LABS 11/24/2024 documented in this encounter Results * SCAN - LABS (11/24/2024) us Provider Scanning Final Result documented in this encounter Visit Diagnoses Not on filedocumented in this encounter Care Teams Care Consultant Relationship Specialty Start Date End Date Zoraida Mancia MD [address] [place] [address] PCP - General Family Medicine 09/10/19 02/03/25 Sreekanth Rodriguez MD [address] [place] [address] PCP - General Family Medicine 02/04/25 documented as of this encounter
--- OUTSIDE RECORDS SUMMARY | 2025-10-29 08:37 | XMS_ITS | Clinical Summary ---
Author Organization [facility] Address [address] [facility] [place] [address] Care Team Providers Care Piston Maker Name Role Phone Zoraida Mancia MD Primary Care Provider Aris lnyn Source Comments [facility],non-owned Affiliates and Associated Physician Practices is amultiple site organization consisting of ambulatory clinics and hospital sitesin [place], [place], [place] and [place]. This disclosure is being madepursuant to the Care Everywhere program and may not contain all information available regarding this patient. Last updated 18.[facility] Allergies No known active allergies Medications * [...] patient's age to complete [place] [address] MEDICARE [facility] MEDICARE SELF PAY NO INSURANCE Member Subscriber Plan / Payer (Ef fective for All Dates) Name:Hilariokristofer Jabari Eric Member ID:Not on file Relation to Subscriber:Not on file Name:HILARIOKRISTOFERJABARI Eric Subscriber ID:Not on file (Home) Address: [address] [place] [address] Payer ID:Not on file Group ID:Not on file Type:Self Pay Address: [place], [place] MEDICARE Advance Directives * Full Code (Latest Code Status on File) Date Activated Date Inactivated Comments 02/02/2022 5:06 AM 02/03/2022 1:29 PM Care Teams Piston Maker Relationship Specialty Start Date End Date Zoraida Mancai MD [address] [place] [address] PCP - General Family Medicine 02/02/22
--- OUTSIDE RECORDS SUMMARY | 2025-10-29 08:37 | XMS_ITS | Encounter Summary ---
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
--- OUTSIDE RECORDS SUMMARY | 2025-10-29 08:37 | XMS_ITS | Encounter Summary ---
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 Plan of Treatment Not on file documented as of this encounter Procedures Procedure Name Priority Date/Time Associated Diagnosis Comments SCAN - LABS 10/29/2024 documented in this encounter Results * SCAN - LABS (10/29/2024) us Provider Scanning Final Result documented in this encounter Visit Diagnoses Not on filedocumented in this encounter Care Teams Courtesy Bus Driver Relationship Specialty Start Date End Date Zoraida Mancia MD [address] [place] [address] PCP - General Family Medicine 09/10/19 02/03/25 Sreekanth Rodriguez MD [address] [place] [address] PCP - General Family Medicine 02/04/25 documented as of this encounter
[2025-10-29 09:12] LABS: Hematocrit 40.0 % (42.0-52.0); Hemoglobin 13.5 g/dL (14.0-18.0); Immature Granulocyte Percent A 0.2 % (0-0.5); Lymphocytes Absolute Auto 1.03 K/mm3 (0.9-3.2); Mean Corpuscular HGB Conc 33.8 g/dl (32-36); Mean Corpuscular Hemoglobin 34.1 pg (26-34); Mean Corpuscular Volume 101.0 fl (80-100); Nucleated Red Blood Cells Absolute Auto 0.000 K/mm3 (0.0-0.012); Nucleated Red Blood Cells Perc 0.0 % (0.0-0.2); Platelet Count Result 149 k/mm3 (150-375); Red Blood Count 3.96 M/mm3 (4.6-6.20); White Blood Count 4.1 K/mm3 (4.5-10.0)
[2025-10-29 09:35] LABS: Alanine Aminotransferase 22 U/L (6-50); Albumin Level 3.9 g/dL (3.5-5.1); Alkaline Phosphatase 71 U/L (38-126); Anion Gap 3 mmol/L (4-12); Aspartate Amino Transferase 34 U/L (17-59); Bilirubin,Total 1.5 mg/dL (0.2-1.3); Blood Urea Nitrogen 26 mg/dL (9-20); Calcium 9.3 mg/dL (8.4-10.2); Carbon Dioxide 31 mmol/L (22-30); Chloride 105 mmol/L (98-107); Estimated Glomerular Filt Rate > 60; Glucose 127 mg/dL (65-110); Potassium 4.7 mmol/L (3.4-5.0); Sodium 139 mmol/L (137-145); Total Protein 7.0 g/dL (6.3-8.2)
[2025-10-29 10:07] LABS: Thyroid Stimulating Hormone 1.450 uIU/mL (0.465-4.680)
== END 2025-10-29 08:35 | disposition home or self-care (01) ==
PROVIDERS: PCP Family Medicine; Visit Provider Physician Assistant
DX: D64.9 Anemia, unspecified (principal); R17 Unspecified jaundice
CPT/HCPCS: 36415; 80053; 82248; 83010; 83615; 84443; 85025